=== PATIENT | female | born 1950 | race African-American/Black ===

== ENCOUNTER → 2023-04-11 11:24 | Outpatient (REF) | payer OTHER, SELFPAY | LOC: RAD 11:24 | PROVIDERS: ATTENDING PHYSICIAN Nurse Practitioner | DX: S50.01XA Contusion of right elbow, initial encounter (principal) | CPT/HCPCS: 73080 ==

== ENCOUNTER 2023-08-02 14:14 | Outpatient (RCR) | payer OTHER, SELFPAY | END 2023-08-02 23:59 | disposition home or self-care (01) | LOC: RPT 14:14 | PROVIDERS: ATTENDING PHYSICIAN Internal Medicine; FAMILY PHYSICIAN Internal Medicine | DX: K59.02 Outlet dysfunction constipation (principal); M62.89 Other specified disorders of muscle; R15.1 Fecal smearing; Z73.6 Limitation of activities due to disability | CPT/HCPCS: 97110; 97140; 97163; 97530 ==

== ENCOUNTER 2023-09-06 14:02 | Outpatient (RCR) | payer OTHER, SELFPAY | END 2023-09-06 23:59 | disposition home or self-care (01) | LOC: RPT 14:02 | PROVIDERS: ATTENDING PHYSICIAN Internal Medicine; FAMILY PHYSICIAN Internal Medicine | DX: K59.02 Outlet dysfunction constipation (principal); M62.89 Other specified disorders of muscle; R15.1 Fecal smearing; Z73.6 Limitation of activities due to disability | CPT/HCPCS: 97014; 97110; 97112; 97140; 97530 ==

== ENCOUNTER 2023-09-26 03:47 | Inpatient (IN) | payer OTHER, SELFPAY ==
[2023-09-25 23:04] VITALS: BP 137/59
[2023-09-25 23:06] VITALS: BP 137/59
[2023-09-25] MEDS: ATIVAN 0.5 MG IV ×2 (23:12→23:26)
--- NOTE | 2023-09-25 23:29 | ED.GENMED ---
History of Present Illness
General
Chief Complaint: Seizure
Source: patient, spouse and ambulance crew
Exam Limitations: clinical condition
Time Seen by Provider: 09/25/23 23:17
Nursing documentation reviewed up to this point in time: agreed with
History of Present Illness
History of Present Illness:
73-year-old female with a past medical history of MS, partial complex seizures, rheumatoid arthritis who presents to the emergency department via EMS accompanied by her for evaluation after having episode of her typical seizures. She
follows with Dr. Urban Flores for neurology, she takes Keppra 1000 mg twice daily and has reportedly been compliant. This evening offers that they were sitting in bed watching TV when patient began having one of her typical seizure-like
episodes; she typically will have diminished level of responsiveness (but does not go unresponsive) associated with rigidity of her extremities and incontinence of urine followed by subsequent period of lethargy. She had 5 such episodes lasting
about a minute each prior to hospital arrival. On my assessment patient is very lethargic, she is able to tell me 'my head hurts.' Rest of history is somewhat limited. She did have another one of her episodes during my evaluation�she appeared to
still be able to open her eyes during the episode but was slurring speech and had rigidity of her extremities particularly her arms. says that she did not have any head trauma. Last episode was reportedly about a year and a half ago. Has
been maintained on a steady dose of 1000 mg twice daily Keppra. does note that she took her morning dose of Keppra and when she felt this coming on he gave her one half of a 750 mg tablet of Keppra (375 mg) as he was instructed to do by
neurologist if she feels an episode coming on.
Past History
Past History
ED Past Medical History: Hypercholesterolemia, Seizures, Psychiatric (Depression), Other (Multiple sclerosis, chronic right neck pain/trigeminal neuralgia, migraine headaches, chronic burping, RA, osteopenia, duodenitis, mesenteric vasculitis),
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
ED Past Surgical History: Gynecological (D&C, endometrial ablation 1997), Orthopedic (Laminectomy 1990, 1993; left knee arthroscopy) and Other (Partial thyroidectomy for removal of thyroid nodule)
Patient has exhibited threatening behavior?: No
PSI?: No
Social History
Tobacco: Non-smoker
Alcohol: None
Drug: None
Personal:
Living: with family
Employment: Disabled
Family History
Family History: Other (reviewed and Noncontributory)
Review of Systems
Review of Systems
Unable to obtain full review of systems at this time due to: other (Postictal)
All Other Systems: Not applicable
Phy Exam
Physical Exam
Physical Exam:
General: Lethargic laying in bed but opens eyes to voice, follows basic commands
Head: Normocephalic, atraumatic
Eyes: Conjunctiva normal, pupils equal round and reactive to light bilaterally, tracking across visual field
Throat: Airway intact, handling secretions, tongue appears atraumatic
Neck: Trachea midline, supple without meningismus
Lungs: Clear to auscultation bilaterally, no wheezing, rales, rhonchi
Heart: Regular rate and rhythm, no murmurs, gallops, or rubs
Abd: Soft, non distended, no apparent tenderness
Neuro: Lethargic, moving all extremities spontaneously and symmetrically, no gross cranial nerve deficits
Skin: no rash
Extremities: Warm and well-perfused with good pulses in all extremities
Scores
Heart Failure Risk
Heart Failure Risk Score: Not Applicable
Heart Score for Chest Pain Patients
STEMI patient?: Not applicable
Withdrawal Assessment of Alcohol
Withdrawal Assessment Completed?: Not applicable
Course
Orders/Labs/Results
Orders:
Orders
09/25/23 23:12
Lorazepam [Ativan] 2 mg .ROUTE .STK-MED ONE
09/25/23 23:18
Lorazepam [Ativan] 0.5 mg IV NOW STA
09/25/23 23:25
Levetiracetam Injectable [Keppra] 1,000 mg IV NOW STA
Lorazepam [Ativan] 0.5 mg IV NOW STA
09/25/23 23:26
Lorazepam [Ativan] 0.5 mg IV NOW STA
09/25/23 23:28
Electrocardiogram (*1) Urgent
Reason for Study: Vertigo / Dizzy
EKG- Treatment ONCE
09/25/23 23:36
CPK [Creatine Phosphokinase] Urgent
Complete Blood Count/With Diff Urgent
Comprehensive Metabolic Panel Urgent
Keppra (Levetiracetam) [S] Urgent
Troponin I Urgent
09/26/23 00:35
CT Head W/o Iv Contrast Urgent
Reason For Exam: seizures, headache
Abnormal Lab Results
09/25/23
23:36
WBC 12.1 H 10^3/uL
(4.8-10.8)
Hct 36.4 L %
(37.0-47.0)
MCV 75.5 L fL
(81.0-99.0)
MCH 25.9 L pg
(27.0-31.0)
Absolute Lymphs (auto) 7.3 H 10^3/uL
(1.2-3.4)
Absolute Monos (auto) 1.1 H 10^3/uL
(0.1-0.6)
Neutrophils % 28.0 L %
(42.2-75.2)
Lymphocytes % 60.2 H %
(20.5-51.1)
Sodium 133 L mmol/L
(135-145)
Carbon Dioxide 18 L mmol/L
(22-30)
Glucose 176 H mg/dl
(70-99)
Calcium 10.6 H mg/dl
(8.4-10.2)
Alkaline Phosphatase 194 H U/L
(38-126)
09/25/23 23:36
09/25/23 23:36
Vital Signs
Initial and Last Documented VS:
Initial Vital Signs
Pulse Resp
84 22
09/25/23 23:03 09/25/23 23:03
Last Documented Vital Signs
Temp Pulse Resp BP Pulse Ox
36.4 C 56 14 116/100 96
09/25/23 23:04 09/26/23 01:30 09/26/23 01:30 09/26/23 01:00 09/26/23 01:30
MDM/Problems Addressed
Differential Diagnosis Includes:
Seizure, TIA/CVA, brain hemorrhage, syncope, PNES
MDM/Problems Addressed:
73-year-old female presents for evaluation after a few episodes of her typical seizures at home; had another episode witnessed here. Appears postictal on my assessment. Vital signs significant for mild tachypnea otherwise unremarkable. Physical
exam as above. She was given IV Ativan for seizure. Will provide additional 1 g of IV Keppra. Will send labs including a CBC and a CMP, CPK. Check EKG. Will check CT head. Monitor closely and reassess after the above.
Patient had another seizure-like episode here; will provide additional dose of Ativan.
Labs reviewed: CBC shows slight leukocytosis 12.1. CMP shows random glucose 176, mild metabolic acidosis nongap likely from seizure activity. CT head negative for any acute pathology. Clinical reassessment patient now much more awake, has not had
additional seizure activity since repeat dose of Ativan and extra Keppra. She still feels lethargic, still complains of headache and blurry vision. This is not atypical and her postictal state she says. She had multiple episodes prehospital and
then 2 episodes here and still having postictal symptoms. I think warrants admission for observation for recurrent seizure activity and neurology consultation. Case discussed with hospitalist for admission.
Chronic conditions affecting care:
Seizures, MS
*Radiology
Radiology exam reviewed: radiology read reviewed
*Pulse Oximetry
Patient hypoxic: no
*Critical Care Note
Total Time (30-74mins, 75-104mins- exclusive of procedures): Not Applicable
Data Reviewed
Review of Other/Old Records Reveals: Labs, Records and Discharge Summary
Source: patient, spouse and ambulance crew
Patient Management
Discussion with other providers: Hospitalist (Discussed with hospitalist)
Escalation/DeEscalation of care consider admission/obs:
Admission indicated
ED Attending Note
-
Portions of this chart may have been created with voice recognition software.� Occasional wrong word or��sound alike� substitutions may have occurred due to the inherent limitations of voice recognition software.
Discharge Plan
Departure
Patient Disposition: Admit
Date of Disposition: 09/26/23
Time of Disposition: 02:34
Admit to doctor: Marsha
Presentation/result/management discussed w/ accepting MD/DO: Hospitalist
Discharge Problem:
Seizures
Prescriptions:
No Action
multivitamin with folic acid [Tab-A-Pablo] 1 TABLET tablet
1 tab PO DAILY
amlodipine 10 MG tablet
10 mg PO DAILY
methimazole 5 MG tablet
5 mg PO SUTUTHSA
gabapentin 600 MG tablet
1,200 mg PO BID
ibuprofen [IBU] 800 MG tablet
800 mg PO TIDPRN PRN (Reason: mild pain)
temazepam 30 MG capsule
30 mg PO HS
metoprolol succinate [Toprol XL] 25 mg Tablet Extended Release 24 Hr
25 mg PO DAILY
cholecalciferol (vitamin D3) 125 mcg (5,000 unit) Capsule
125 mcg PO DAILY
escitalopram oxalate 20 mg tablet
20 mg PO DAILY
losartan 100 mg tablet
100 mg PO DAILY
vitamin E [Vitamin E-400] 268 mg (400 unit) Capsule
1 cap PO DAILY
levetiracetam 1,000 mg tablet
1,000 mg PO BID
omega 3-zyb-pkz-fish oil [Fish Oil] 1,000 mg (120 mg-180 mg) Capsule
1 cap PO DAILY
ferrous sulfate 142 mg (45 mg iron) Tablet Extended Release
142 mg PO DAILY
Linzess 72 mcg Capsule
72 mcg PO DAILY
Referrals:
UNKNOWN - PT DOES,NOT KNOW [Family Provider] -
Interventions
Interventions:
*Risk Screen - Suicide Last Done: 09/25/23 22:59
*General Assessment Last Done: 09/25/23 22:59
*Neglect/Abuse Screening Last Done: 09/25/23 22:59
ED- Fall Risk Assessment Last Done: 09/25/23 22:59
*ED COVID-19 Vaccine History Last Done: 09/25/23 22:59
ED- Cardiac Assessment Last Done: 09/25/23 23:07
ED- Neurological Assessment Last Done: 09/26/23 01:09
ED- Pulmonary Assessment Last Done: 09/25/23 23:07
Discharge Date and Time
Print Language: TANZANIAN
[2023-09-25] MEDS: KEPPRA 1000 MG IV (23:33)
[2023-09-26] VITALS (18 sets, daily range): BP systolic 91–148; BP diastolic 42–100; PULSE 54; O2SAT 99; BMI 23.3; BMI 22.8
[2023-09-26 00:01] LABS: Hematocrit 36.4 % (37.0-47.0); Hemoglobin 12.5 g/dL (12.0-16.0); Mean Corp Hgb Conc. 34.3 g/dL (33.0-37.0); Mean Corpuscular Hgb 25.9 pg (27.0-31.0); Mean Corpuscular Volume 75.5 fL (81.0-99.0); Mean Platelet Volume 10.4 fL (7.4-10.4); Platelet Count 274 10^3/uL (130-400); Red Blood Cell Count 4.82 10^6/uL (4.20-5.40); Red Cell Dist. Width 13.7 % (11.5-14.5); White Blood Cell Count 12.1 10^3/uL (4.8-10.8)
[2023-09-26 00:03] LABS: ALT (SGPT) 26 U/L (0-35); AST (SGOT) 34 U/L (14-36); Albumin 4.7 g/dl (3.5-5.0); Alkaline Phosphatase 194 U/L (38-126); Blood Urea Nitrogen 16 mg/dl (7-17); Calcium 10.6 mg/dl (8.4-10.2); Carbon Dioxide 18 mmol/L (22-30); Chloride 102 mmol/L (98-107); Creatine Phosphokinase 104 U/L (30-135); Glucose 176 mg/dl (70-99); Potassium 3.6 mmol/L (3.5-5.1); Sodium 133 mmol/L (135-145); Total Bilirubin 0.3 mg/dl (0.2-1.3); Total Protein 6.5 g/dl (6.3-8.2); eGFR > 60.00
[2023-09-26 00:15] LABS: Troponin I < 0.012 ng/ml
[2023-09-26 00:55] LABS: % Basophils 0.5 % (0-2); % Eosinophils 2.1 % (0-6); % Immature Granulocytes 0.2 % (0-0.5); % Lymphocytes 60.2 % (20.5-51.1); Absolute Basophils 0.1 10^3/uL (0-0.2); Absolute Eosinophils 0.3 10^3/uL (0-0.7); Absolute Lymphocytes 7.3 10^3/uL (1.2-3.4); Absolute Monocytes 1.1 10^3/uL (0.1-0.6); Absolute Neutrophils 3.4 10^3/uL (1.4-6.5); Nucleated Red Blood Cells % 0 %
--- NOTE | 2023-09-26 03:28 | HPS.HSE ---
Addendum entered and electronically signed by Luiz Larson MD 09/26/23 13:03:
09/26/23
07:31
Urine Nitrite (Reflex) Positive A
Urine RBC 7-10 A
Urine WBC (Reflex) 30-40 A
Urine Bacteria (Reflex) Moderate A
UA suggested UTI with POS Sx
- noted primary hospitalist initiated IV CFTX this morning - [employer] Helper appreciated
- f/u UCx
Agree admission Dx break thru partial Sz is provoked by UTI
Original Note:
Family Physician
-
Family Physician: NOT KNOW UNKNOWN - PT DOES
Chief Complaint
-
recurrent Szs
History of Present Illness
73F HX MS, partial complex seizures [facility] for episode of her typical seizures.
- First episode of typical Sz while watching TV this evening followed posticta;l lethargy
- Report 5 more sz SAND [employer] to ER
- Compliance with Keppra 1000 mg BID
@ ER
received IV Keppra 1 gm
IV Lorazepam 0.5 mg x3
ROS:
difficult urination but denied dysuria
Small amount of urine passage per RESIDENT IN DIAGNOSTIC RADIOLOGY
Medical History
Past Medical History
Past Medical History: Reports HTN, Hypercholesterolemia, Psychiatric (depression ) and Other
Additional Past Medical History:
Multiple sclerosis
chronic right neck pain/trigeminal neuralgia
migraine headaches
chronic burping
RA
Past Surgical History: Reports Other
Additional Past Surgical History:
Laminectomy 1990, 1993
left knee arthroscopy
Partial thyroidectomy for removal of thyroid nodule
Social History
Tobacco: Non-smoker
Alcohol: None
Drug: None
Family History
Family History: Not pertinent
Allergies / Home Medications
Allergies reflects when Allergies were last updated in [facility].
Home Medications with original date entered in [facility]
Allergy/Medication List:
Allergies
Allergy/AdvReac Type Severity Reaction Status Date / Time
adhesive tape [Adhesive Tape] Allergy Rash, Verified 09/25/23 23:28
Burning
morphine Allergy NAUSEA/VOMI Verified 09/25/23 23:28
TING
tramadol Allergy SEE BELOW Verified 09/25/23 23:28
povidone-iodine AdvReac Mild Itching, Verified 09/25/23 23:28
[From Betadine] rash
soap [From Betadine] AdvReac Mild Itching, Verified 09/25/23 23:28
rash
silver Allergy Itching Uncoded 09/25/23 23:28
Home Medications
multivitamin with folic acid 400 mcg tablet (Tab-A-Pablo) 1 tab PO DAILY Supplement 01/11/16
amlodipine 10 mg tablet 10 mg PO DAILY Blood pressure 05/18/18
gabapentin 600 mg tablet 1,200 mg PO BID Seizures 05/18/18
ibuprofen 800 mg tablet (IBU) 800 mg PO TIDPRN PRN mild pain 05/18/18
methimazole 5 mg tablet 5 mg PO SUTUTHSA Thyroid 05/18/18
temazepam 30 mg capsule 30 mg PO HS Sleep 05/18/18
metoprolol succinate 25 mg tablet,extended release 24 hr (Toprol XL) 25 mg PO DAILY 02/10/22
cholecalciferol (vitamin D3) 125 mcg (5,000 unit) capsule 125 mcg PO DAILY 03/31/22
escitalopram oxalate 20 mg tablet 20 mg PO DAILY 03/31/22
ferrous sulfate 142 mg (45 mg iron) tablet,extended release 142 mg PO DAILY 03/31/22
levetiracetam 1,000 mg tablet 1,000 mg PO BID 03/31/22
losartan 100 mg tablet 100 mg PO DAILY 03/31/22
omega 7-eim-hjh-fish oil 1,000 mg (120 mg-180 mg) capsule (Fish Oil) 1 cap PO DAILY 03/31/22
vitamin E 268 mg (400 unit) capsule 1 cap PO DAILY 03/31/22
linaclotide 72 mcg capsule (Linzess) 72 mcg PO DAILY 09/25/23
Review of Systems
-
Constitutional: Reports No Symptoms
EENT: Reports No Symptoms
Respiratory: Reports No Symptoms
Cardiac: Reports No Symptoms
Abdomen/GI: Reports No Symptoms
: Reports No Symptoms
Musculoskeletal: Reports No Symptoms
Skin: Reports No Symptoms
Neurological: Reports See HPI
Endocrine: Reports No Symptoms
Hematologic/Lymphatic: Reports No Symptoms
Psych: Reports No Symptoms
Physical Exam
Vital Signs
Vital Signs
Temp Pulse Resp BP Pulse Ox
97.5 F 52 20 104/53 98
09/25/23 23:04 09/26/23 03:24 09/26/23 03:24 09/26/23 03:00 09/26/23 03:24
Physical Exam
General: Conversant
HEENT: NormoCephalic and Moist mucous membranes
Respiratory: Clear
Cardiac: S1/S2 and Regular Rhythm
Breast: Deferred by me
GI: Non Tender, Non Distended and Normal Bowel Sounds
Musculoskeletal: No Edema
Skin: Warm and Dry
Neuro: AO x 3 and Nonfocal/grossly intact
Psych: Calm
Laboratory Results
-
09/25/23 23:36
09/25/23 23:36
Laboratory Results
Total Bilirubin 0.3 mg/dl (0.2-1.3) 09/25/23 23:36
AST 34 U/L (14-36) 09/25/23 23:36
ALT 26 U/L (0-35) 09/25/23 23:36
Alkaline Phosphatase 194 U/L (38-126) H 09/25/23 23:36
Troponin I < 0.012 ng/ml 09/25/23 23:36
Data Reviewed
-
CT Scan: Report Reviewed by me
Lab Data: Labs Reviewed by me
Old Records: Reviewed
Impression/Plan
-
Vital Signs
Temp Pulse Resp BP Pulse Ox
97.5 F 52 20 104/53 98
09/25/23 23:04 09/26/23 03:24 09/26/23 03:24 09/26/23 03:00 09/26/23 03:24
Data
WCC 12.1
Na 133
CO2 18
BG 176
Pending UA
HCT pending report
ASSESSMENT & PLAN
Frequent and recurrent witnessed Sz with post ictlal lethargy
Of note: HX 15 MRIs of the brain since 2008, 9 CAT scans of the head since 2007
- cont. IV Keppra 1 gm BID
- IV Ativan PRN for break thru Sz
- EEG greater than one hour study
- UA
- Neuro consult
Difficult urination but denied dysuria
Small amount of urine passage per RESIDENT IN DIAGNOSTIC RADIOLOGY
- Bladder scan
- pending UA reflex to UCx
Long-standing multiple sclerosis
HX balance disturbance
HX Trigeminal neuralgia
- c/w gabapentin and Trileptal
Essential HTN maintain on Norvasc, BB and Losartan - cont
Marginal chronic Hyponatremia, euvolemic
- c/w Medical Cannabis
HX Hyperthyroidism
- c/w chronic Methimazole
Rheumatoid arthritis
- HX rituximab and chronic MTX - any current Rx ???
DVT Px: SCD
Code: Full
IP TLM
[2023-09-26 07:51] LABS: Urine Albumin Negative (Neg - Trace); Urine Bilirubin Negative (Negative); Urine Character Slightly Cloudy (Clear); Urine Color Yellow; Urine Glucose Negative (Negative); Urine Ketone Negative (Negative); Urine Leukocyte 2+ (Negative); Urine Nitrite Positive (Negative); Urine Occult Blood Trace (Negative); Urine Specific Gravity 1.015 (<1.030); Urine Urobilinogen Negative (Neg - 1+)
--- NOTE | 2023-09-26 08:54 | W.PN.HOSP.TC ---
Today's Communication/Plan
-
IV Keppra. IV Rocephin.
Assessment / Plan
Assessment / Plan
Physical exam:
General: Well Developed, Well Nourished and No Apparent Distress
HEENT: Normocephalic, Atraumatic and Moist Mucous Membranes
Respiratory: Clear to Auscultation; Negative Wheezes, Rales or Rhonchi
Cardiac: Regular Rhythm and S1/S2
GI: Soft, Nontender and Nondistended
Musculoskeletal: No Clubbing, No Cyanosis and No Edema
Neuro: Awake, Alert and Oriented, no gross neurological deficit but right foot drop and generalized weakness. Strength normal, no sensory deficits, DTR 2+ symmetrical, no Babinski.
Psych: Calm
A/P:
Recurrent seizures-on IV Keppra increasing to 1500 mg every 12 hours, CT head no abnormalities, neurology consult-discussed with neuro. Myasthenia gravis outpatient workup. Discussed with boyfriend at bedside.
UTI-abnormal UA, start IV ceftriaxone, follow-up cultures
Trigeminal neuralgia-continue gabapentin and Trileptal
Hypertension-continue amlodipine 10 mg daily and metoprolol succinate 25 mg daily and losartan 100 mg daily
Hyponatremia-monitor sodium
Hyperthyroidism-continue methimazole
Depression-continue escitalopram 20 mg daily
Multiple sclerosis-she has been on rituximab, follow-up neurology as outpatient
Rheumatoid arthritis-she has been on methotrexate and rituximab and tofacitinib, follow-up rheumatology outpatient
IBS, constipation-restart Linzess
Hyperlipidemia-restart statin
DVT prophylaxis-SCDs
CODE STATUS-full code
Anticipated Discharge: 24 - 48 hours
Subjective/Interval History
-
Date of Service: September 26, 2023
Patient alert and back to her baseline this morning. She complains of dysuria and urgency for the last couple of days. Afebrile
Objective Data
-
Labs:
Laboratory Results
09/25/23
23:36
WBC 12.1 H
Hgb 12.5
Hct 36.4 L
Plt Count 274
Sodium 133 L
Potassium 3.6
Chloride 102
Carbon Dioxide 18 L
BUN 16
Creatinine 0.7
Glucose 176 H
Calcium 10.6 H
Total Bilirubin 0.3
AST 34
ALT 26
Alkaline Phosphatase 194 H
Vital Signs:
Vital Signs
Temp Pulse Resp BP Pulse Ox
97.5 F 47 17 115/53 97
09/25/23 23:04 09/26/23 06:45 09/26/23 06:45 09/26/23 05:00 09/26/23 06:45
[2023-09-26 08:55] LABS: Urine Bacteria Moderate (Negative); Urine White Cell 30-40 /HPF (0-5)
--- NOTE | 2023-09-26 09:07 | CON.NEURO4 ---
Documented by User: Marcela Myers NP 09/27/23 10:59
Consultation - Neurology 4
-
CONSULTING PHYSICIAN: Pipe Wetzel MD
REFERRING PHYSICIAN: ER/Dr. Flores
DICTATED BY: ARAMIS Rojo
DATE/TIME OF REQUEST: 09/26/23
DATE/TIME OF CONSULTATION: 09/26/23
Reason for Consultation: Seizure
History of Present Illness:
This is a 73-year-old right-handed female who has presented to the hospital with report of seizures. Patient has a history of partial seizures, and trigeminal neuralgia and is followed as an outpatient by neurology Dr. Urban Flores at [place]. She
has also been evaluated at by neurology several times in the past.
From previous evaluation by Dr. Krishna on 03/02/20:
'Patient was evaluated by this inpatient Hospital neurology consult service in January 2017 at which time she was experiencing episodic changes in mental status. Associated symptoms at that time included tinnitus, a sense of being pulled from her
own body, and aphasia. Episodes lasted less than 1 minute at that time. The episodes were similar to when she had utilized tramadol. EEG testing at that time was unremarkable. Patient was placed on Levetiracetam at that time. In 2018, the patient
was evaluated in inpatient neurologic consultation and instructed to discontinue oxcarbazepine and to increase her dose of gabapentin due to discovery of hyponatremia.
Patient returned to this hospital with recurrent episodes of changes in mental status. Started 2 days ago with worsening because more frequent since 1700 1 day ago, unable to breathe. Is having bladder incontinence, no tongue biting, or bowel
incontinence. Continued and on-going symptoms of mental status change. No known modifying factors.
Patient has a long-standing history of multiple sclerosis diagnosed approximately in 2006 and followed routinely by an outside neurologist (Dr. Urban Flores). Patient is described as having chronic trigeminal neuralgia on the right and left sides for
which she is utilized both oxcarbazepine and gabapentin, as described. According to records, the patient has used valproic acid previously. Patient is described in records as being noncompliant with glatiramer acetate as well as Teriflunomide. The
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 Changed to Methotrexate since discontinuance of rituximab.
According to records, the patient switched from sertraline to escitalopram as of November 2019. Started Tofacitinib 6 weeks ago for rheumatoid arthritis.'
Patient reports that since 2019 she has been off of DMT for MS. She reports chronic right foot drop starting a few years ago and she ambulates with a cane at baseline. She also notes 1-2 years of issues with slurred speech primarily in the evening,
BUE weakness with activities like brushing/flossing her teeth, and swallowing difficulty/feeling like food gets stuck in her throat. She notes intermittent diplopia starting around 2009, mostly with lateral gaze. She denies noticing any eyelid
drooping. She reports being tested for myasthenia antibodies about 10 years ago and they were negative.
Patient reports that her last seizure was in February 2022. She has been taking Keppra 1000mg for years now and denies missing any doses. Last night (09/25/23), patient reports she was in her usual state when suddenly while lying in bed watching TV
she developed a diffuse 'heavy body' sensation that she gets before her typical seizures. She then reports that her body became rigid, she could hear/understand speech but was unable to verbally respond, and she was incontinent of urine. She denies
losing consciousness or biting her tongue. She proceeded to have 5 episodes like this lasting about 1 minute each, followed by feeling lethargic. She reports developing a right-sided headache following these events. On arrival in the ER she was
witnessed to have another event and received an additional Keppra 1000mg IV and lorazepam. CT head was obtained and is negative for any acute abnormalities. WBC is 12.1, patient is afebrile. Currently, patient reports feeling tired with some
increased BLE weakness compared to baseline. She reports her chronic intermittent diplopia, difficulty swallowing, and right foot drop. She denies any vision loss, dizziness, speech difficulty, numbness, chest pain, palpitations, and shortness of
breath. She denies any recent fever or illness but she does note dysuria. Urinalysis is suggestive of possible UTI.
Past Medical History: Partial seizure disorder, multiple sclerosis, rheumatoid arthritis, chronic right neck pain/trigeminal neuralgia, HLD, migraines, chronic burping, depression, anxiety, insomnia, osteopenia, duodenitis, mesenteric vasculitis,
thyroid nodule, right foot drop, diplopia, chronic constipation, hiatal hernia, spastic pelvic floor syndrome
Surgical History: Partial thyroidectomy, L4/L5 discectomy/laminectomy, D&C, endometrial ablation, L knee arthroscopy, right hand finger surgery, sinus surgery, fibroma removed from lower lip, left bunionectomy
Family History: Reviewed and noncontributory.
Social History: Denies tobacco, alcohol, and illicit drug use.
Allergies: Adhesive tape, morphine, tramadol, povidone-iodine, soap, silver.
Home Medications: See below.
Review of Symptoms:
Patient denies any fever, headache, chest pain, shortness of breath, or GI symptoms.
�Per the HPI.�All systems are reviewed negative except above.
Physical Exam:
The patient is afebrile, abdomen is nondistended, breathing is unlabored, skin is warm and dry, no edema.
Neurologic Examination:
The patient is awake, alert and oriented x 3. She is able to follow commands and answer questions appropriately. There is no aphasia or dysarthria. On cranial nerve assessment, pupils are 3 mm bilateral, round and reactive to light and
accommodation. Visual haskins are full. Extraocular movements are intact. +Diplopia with left and right gaze. Facial sensations are intact and bilaterally symmetrical, there is no facial asymmetry. Hearing is intact bilaterally to normal conversation
volume. Tongue palate and uvula are midline. Sternocleidomastoid strengths are full bilaterally. Motor strengths are 5/5 bilateral upper and 4/5 LLE, 4-/5 RLE on medical research [place] scale. There is no drift or involuntary movement noted. Deep
tendon reflexes are 2+ bilateral upper and lower extremities and Babinski is absent bilaterally. Sensations temperature is mildly reduced in distal bilateral lower extremities. There was no extinction noted on double simultaneous stimulation.
Coordination is intact by finger to nose bilaterally.
Lab Results: See below.
Neuro Imaging:
1. CT Head 09/26/23: There are no focal or acute intracranial abnormalities. There is mild diffuse cortical and cerebellar atrophy.
2. EEG 09/26/23: Likely unremarkable EEG for age.
Differentials for the patient's presentation include:
1. Breakthrough partial seizures; urinalysis suggestive of UTI, possibly a provoking factor.
2. Chronic dysphagia, diplopia, BUE weakness on exertion.
3. Chronic R footdrop, ambulatory dysfunction.
Patient has the following risk factors for their symptoms: Seizure disorder, possibly UTI, MS
Recommendations:
-Increase home Keppra 1000mg to 1500mg q12hrs for seizure prevention.
-With strict workup/treatment per primary team.
-Do not see a role for further neurological imaging.
-PT evaluation.
-Seizure precautions.
-Consider checking myasthenia gravis antibodies again as an outpatient.
-DVT prophylaxis.
-These events are required by [place] state law to be reported to [facility], paperwork submitted by our office.
-Follow-up with Neurology Dr. Flores as an outpatient.
Discussed patient care with: Dr. Wetzel, the patient
Attending note:
Patient seen and examined. Agree with history physical exam assessment and plan.
Briefly 73-year-old lady with history of chronic epilepsy well-controlled on Keppra 1000mg twice a day. She had a bladder infection which triggered dais cluster of seizures. She was admitted and placed on Keppra 1500 mg twice a day. Following
admission the patient is doing well and has had no seizures
Vital Signs and Labs
-
Vital Signs and Labs:
Vital Signs
Temp Pulse Resp BP Pulse Ox
98.2 F 60 16 148/66 98
09/26/23 09:29 09/26/23 09:29 09/26/23 09:29 09/26/23 09:29 09/26/23 09:29
Lab Results
09/25/23 23:36
09/25/23 23:36
Sodium 133 mmol/L (135-145) L 09/25/23 23:36
Potassium 3.6 mmol/L (3.5-5.1) 09/25/23 23:36
BUN 16 mg/dl (7-17) 09/25/23 23:36
Glucose 176 mg/dl (70-99) H 09/25/23 23:36
Calcium 10.6 mg/dl (8.4-10.2) H 09/25/23 23:36
Medications
-
Active Medications
Generic Name Dose Route Start Last Admin
Trade Name Freq PRN Reason Stop Dose Admin
Amlodipine Besylate 10 mg 09/26/23 08:00 09/26/23 09:31
Amlodipine 10 Mg Tablet PO 10/24/23 07:59 10 mg
DAILY ELOISE Administration
Bisacodyl 10 mg 09/26/23 04:07
Bisacodyl 10 Mg Rectal Suppository RECTAL 10/24/23 04:06
[id number] PRN
constipation
Ceftriaxone Sodium 1,000 mg 09/26/23 12:00
Ceftriaxone 1000 Mg / 10 Ml Vial IV
Q24H ELOISE
Escitalopram Oxalate 20 mg 09/26/23 08:00 09/26/23 09:31
Escitalopram 20 Mg Tablet PO 10/24/23 07:59 20 mg
DAILY ELOISE Administration
Gabapentin 1,200 mg 09/26/23 08:00 09/26/23 09:31
Gabapentin 300 Mg Capsule PO 10/24/23 07:59 1,200 mg
BID ELOISE Administration
Levetiracetam 1,000 mg 09/26/23 08:00 09/26/23 09:21
Levetiracetam (100 Mg/Ml) 500 Mg/5 Ml Vial IV 10/24/23 07:59 1,000 mg
Q12 ELOISE Administration
Losartan Potassium 100 mg 09/26/23 08:00 09/26/23 09:31
Losartan 100 Mg Tablet PO 10/24/23 07:59 100 mg
DAILY ELOISE Administration
Methimazole 5 mg 09/26/23 08:00
Methimazole 5 Mg Tablet PO 10/24/23 07:59
SuTuThSa@0800 ELOISE
Metoprolol Succinate 25 mg 09/26/23 08:00 09/26/23 09:31
Metoprolol 25 Mg Extended Release Tablet PO 10/24/23 07:59 25 mg
DAILY ELOISE Administration
Polyethylene Glycol 17 grams 09/26/23 04:07
Polyethylene Glycol Powder 17 Grams Packet PO 10/24/23 04:06
DAILYPRN PRN
constipation
Senna/Docusate Sodium 1 tablet 09/26/23 04:07
Docusate W/Senna (Thao-Colace) Tablet PO 10/24/23 04:06
BIDPRN PRN
constipation
Sodium Chloride 0 flush 09/26/23 05:00
Sodium Chloride 0.9% (Flush) Syringe IV 10/24/23 04:59
PER PROTOCOL ELOISE
Home Medications
�Medication �Instructions �Recorded
multivitamin with folic acid 400 1 tab PO DAILY Supplement 01/11/16
mcg tablet (Tab-A-Pablo)
amlodipine 10 mg tablet 10 mg PO DAILY Blood pressure 05/18/18
gabapentin 600 mg tablet 1,200 mg PO BID Seizures 05/18/18
ibuprofen 800 mg tablet (IBU) 800 mg PO TIDPRN PRN mild pain 05/18/18
methimazole 5 mg tablet 5 mg PO SUTUTHSA Thyroid 05/18/18
temazepam 30 mg capsule 30 mg PO HS Sleep 05/18/18
metoprolol succinate 25 mg 25 mg PO DAILY Heart Failure 02/10/22
tablet,extended release 24 hr
(Toprol XL)
cholecalciferol (vitamin D3) 125 125 mcg PO DAILY Supplement 03/31/22
mcg (5,000 unit) capsule
escitalopram oxalate 20 mg tablet 20 mg PO DAILY Depression 03/31/22
ferrous sulfate 142 mg (45 mg 142 mg PO DAILY Supplement 03/31/22
iron) tablet,extended release
levetiracetam 1,000 mg tablet 1,000 mg PO BID Seizures 03/31/22
losartan 100 mg tablet 100 mg PO DAILY Blood Pressure 03/31/22
omega 8-[id number]-apf-fish oil 1,000 mg 1 cap PO DAILY High Cholesterol 03/31/22
(120 mg-180 mg) capsule (Fish Oil)
vitamin E 268 mg (400 unit) capsule 1 cap PO DAILY Supplement 03/31/22
linaclotide 72 mcg capsule 72 mcg PO DAILY Constipation 09/25/23
(Linzess)

Documented by User: Pipe Wetzel MD 09/27/23 10:59
Consultation - Neurology 4
-
CONSULTING PHYSICIAN: Pipe Wetzel MD
REFERRING PHYSICIAN: ER/Dr. Flores
DICTATED BY: ARAMIS Rojo
DATE/TIME OF REQUEST: 09/26/23
DATE/TIME OF CONSULTATION: 09/26/23
Reason for Consultation: Seizure
History of Present Illness:
This is a 73-year-old right-handed female who has presented to the hospital with report of seizures. Patient has a history of partial seizures, and trigeminal neuralgia and is followed as an outpatient by neurology Dr. Urban Flores at [place]. She
has also been evaluated at by neurology several times in the past.
From previous evaluation by Dr. Krishna on 03/02/20:
'Patient was evaluated by this inpatient Hospital neurology consult service in January 2017 at which time she was experiencing episodic changes in mental status. Associated symptoms at that time included tinnitus, a sense of being pulled from her
own body, and aphasia. Episodes lasted less than 1 minute at that time. The episodes were similar to when she had utilized tramadol. EEG testing at that time was unremarkable. Patient was placed on Levetiracetam at that time. In 2019, the patient
was evaluated in inpatient neurologic consultation and instructed to discontinue oxcarbazepine and to increase her dose of gabapentin due to discovery of hyponatremia.
Patient returned to this hospital with recurrent episodes of changes in mental status. Started 2 days ago with worsening because more frequent since 1700 1 day ago, unable to breathe. Is having bladder incontinence, no tongue biting, or bowel
incontinence. Continued and on-going symptoms of mental status change. No known modifying factors.
Patient has a long-standing history of multiple sclerosis diagnosed approximately in 2006 and followed routinely by an outside neurologist (Dr. Urban Flores). Patient is described as having chronic trigeminal neuralgia on the right and left sides for
which she is utilized both oxcarbazepine and gabapentin, as described. According to records, the patient has used valproic acid previously. Patient is described in records as being noncompliant with glatiramer acetate as well as Teriflunomide. The
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 Changed to Methotrexate since discontinuance of rituximab.
According to records, the patient switched from sertraline to escitalopram as of November 2019. Started Tofacitinib 6 weeks ago for rheumatoid arthritis.'
Patient reports that since 2019 she has been off of DMT for MS. She reports chronic right foot drop starting a few years ago and she ambulates with a cane at baseline. She also notes 1-2 years of issues with slurred speech primarily in the evening,
BUE weakness with activities like brushing/flossing her teeth, and swallowing difficulty/feeling like food gets stuck in her throat. She notes intermittent diplopia starting around 2009, mostly with lateral gaze. She denies noticing any eyelid
drooping. She reports being tested for myasthenia antibodies about 10 years ago and they were negative.
Patient reports that her last seizure was in February 2022. She has been taking Keppra 1000mg for years now and denies missing any doses. Last night (09/25/23), patient reports she was in her usual state when suddenly while lying in bed watching TV
she developed a diffuse 'heavy body' sensation that she gets before her typical seizures. She then reports that her body became rigid, she could hear/understand speech but was unable to verbally respond, and she was incontinent of urine. She denies
losing consciousness or biting her tongue. She proceeded to have 5 episodes like this lasting about 1 minute each, followed by feeling lethargic. She reports developing a right-sided headache following these events. On arrival in the ER she was
witnessed to have another event and received an additional Keppra 1000mg IV and lorazepam. CT head was obtained and is negative for any acute abnormalities. WBC is 12.1, patient is afebrile. Currently, patient reports feeling tired with some
increased BLE weakness compared to baseline. She reports her chronic intermittent diplopia, difficulty swallowing, and right foot drop. She denies any vision loss, dizziness, speech difficulty, numbness, chest pain, palpitations, and shortness of
breath. She denies any recent fever or illness but she does note dysuria. Urinalysis is suggestive of possible UTI.
Past Medical History: Partial seizure disorder, multiple sclerosis, rheumatoid arthritis, chronic right neck pain/trigeminal neuralgia, HLD, migraines, chronic burping, depression, anxiety, insomnia, osteopenia, duodenitis, mesenteric vasculitis,
thyroid nodule, right foot drop, diplopia, chronic constipation, hiatal hernia, spastic pelvic floor syndrome
Surgical History: Partial thyroidectomy, L4/L5 discectomy/laminectomy, D&C, endometrial ablation, L knee arthroscopy, right hand finger surgery, sinus surgery, fibroma removed from lower lip, left bunionectomy
Family History: Reviewed and noncontributory.
Social History: Denies tobacco, alcohol, and illicit drug use.
Allergies: Adhesive tape, morphine, tramadol, povidone-iodine, soap, silver.
Home Medications: See below.
Review of Symptoms:
Patient denies any fever, headache, chest pain, shortness of breath, or GI symptoms.
�Per the HPI.�All systems are reviewed negative except above.
Physical Exam:
The patient is afebrile, abdomen is nondistended, breathing is unlabored, skin is warm and dry, no edema.
Neurologic Examination:
The patient is awake, alert and oriented x 3. She is able to follow commands and answer questions appropriately. There is no aphasia or dysarthria. On cranial nerve assessment, pupils are 3 mm bilateral, round and reactive to light and
accommodation. Visual haskins are full. Extraocular movements are intact. +Diplopia with left and right gaze. Facial sensations are intact and bilaterally symmetrical, there is no facial asymmetry. Hearing is intact bilaterally to normal conversation
volume. Tongue palate and uvula are midline. Sternocleidomastoid strengths are full bilaterally. Motor strengths are 5/5 bilateral upper and 4/5 LLE, 4-/5 RLE on medical research [place] scale. There is no drift or involuntary movement noted. Deep
tendon reflexes are 2+ bilateral upper and lower extremities and Babinski is absent bilaterally. Sensations temperature is mildly reduced in distal bilateral lower extremities. There was no extinction noted on double simultaneous stimulation.
Coordination is intact by finger to nose bilaterally.
Lab Results: See below.
Neuro Imaging:
1. CT Head 09/26/23: There are no focal or acute intracranial abnormalities. There is mild diffuse cortical and cerebellar atrophy.
2. EEG 09/26/23: Likely unremarkable EEG for age.
Differentials for the patient's presentation include:
1. Breakthrough partial seizures; urinalysis suggestive of UTI, possibly a provoking factor.
2. Chronic dysphagia, diplopia, BUE weakness on exertion.
3. Chronic R footdrop, ambulatory dysfunction.
Patient has the following risk factors for their symptoms: Seizure disorder, possibly UTI, MS
Recommendations:
-Increase home Keppra 1000mg to 1500mg q12hrs for seizure prevention.
-With strict workup/treatment per primary team.
-Do not see a role for further neurological imaging.
-PT evaluation.
-Seizure precautions.
-Consider checking myasthenia gravis antibodies again as an outpatient.
-DVT prophylaxis.
-Follow-up with Neurology Dr. Flores as an outpatient.
Discussed patient care with: Dr. Wetzel, the patient
Attending note:
Patient seen and examined. Agree with history physical exam assessment and plan.
Briefly 73-year-old lady with history of chronic epilepsy well-controlled on Keppra 1000mg twice a day. She had a bladder infection which triggered dais cluster of seizures. She was admitted and placed on Keppra 1500 mg twice a day. Following
admission the patient is doing well and has had no seizures
[2023-09-26] MEDS: KEPPRA 1000 MG IV (09:21)
[2023-09-26] MEDS: NORVASC 10 MG PO (09:31)
[2023-09-26] MEDS: TOPROL XL 25 MG PO (09:31)
[2023-09-26] MEDS: COZAAR 100 MG PO (09:31)
[2023-09-26] MEDS: LEXAPRO 20 MG PO (09:31)
[2023-09-26] MEDS: NEURONTIN 1200 MG PO ×2 (09:31→19:50)
--- NOTE | 2023-09-26 09:35 | EEG.RPT ---
Electroencephalogram Report
Recording
Date of EE09/26/23
Type of EEG: Routine
Length of EEG recordin minutes
Done with Video Recording: Yes
Patient Status: Emergency Room
Recording Conditions: Awake, Drowsy and Asleep
Hyperventilation Performed: No
Photic Stimulation Performed: Yes
Report
LESS THAN 1 HOUR EEG REPORT
GREATER THAN 1 HOUR EEG INTERPRETATION:
Likely unremarkable EEG for age
CLINICAL CORRELATION:
Although normative values not been established for a person of this advanced age, the patient�s symmetry of the background suggests that this study was unremarkable.
A normal EEG does not rule out a diagnosis of epilepsy.� If clinical suspicion for seizure persists, a prolonged recording may be warranted.
Clinical correlation is advised.
METHODS:
A 21 channel digitized electroencephalogram (EEG) was performed using the 10/20 international system of electrode placement and one-lead of ECG recorded. The [employer] quantitative review system was utilized.
ELECTROENCEPHALOGRAPHER IMPRESSION(S):
Quality of study
Good
Background
There was an low amplitude anterior-posterior voltage gradient of alpha-maximal frequency, typically theta.
With eye opening the background activity changed to a low voltage mixture of frequencies.
There were no significant asymmetries of background activity noted.
Sleep
Drowsiness present
Stage 1 sleep recorded
Stage 2 sleep recorded
Photic Stimulation
No driving
ECG
Normal sinus rhythm
[2023-09-26] MEDS: TAPAZOLE PO ×2 (10:59→11:50)
[2023-09-26] MEDS: ROCEPHIN 1000 MG IV (11:50)
[2023-09-26] MEDS: STERILE WATER FOR INJECTION 10 ML IV (11:50)
--- NOTE | 2023-09-26 12:33 | CM ---
CM reviewed chart.
CM introduced self and role. Spoke with patient and , Noel at bedside.
Dx: recurrent seizures
Patient is on seizure precautions.
Patient is independent with a cane. She owns 4.
She drives. will provide transportation on discharge.
She lives in a [facility]. She has [address] step to enter.
She has children and grandchildren who live in [place]. She has local friends for support.
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
She denied any +SDOH's.
PCP: Dr. Ordonez
Pharmacy: [facility]
DISCHARGE DISPOSITION:
TBD upon PT/OT's assessment and evaluation. Will be discharged when medically stable.
[2023-09-26 13:12] LABS: TSH Reflex To Free T4 1.91 uIU/ml (0.47-4.68)
[2023-09-26 13:16] LABS: Ferritin 68.4 ng/ml (11.1-264.0)
[2023-09-26 13:47] LABS: Folate > 20.0 ng/ml (2.76-20)
[2023-09-26 14:01] LABS: Glycohemoglobin (HgbA1c) 6.1 % (4.0-5.6)
[2023-09-26 14:45] LABS: Vitamin B12 834 pg/ml (239-931)
[2023-09-26] MEDS: LINZESS 145 MCG PO (15:54)
[2023-09-26] MEDS: VITAMIN D3 (cholecalciferol) 125 MCG PO (15:54)
[2023-09-26] MEDS: CRESTOR 5 MG PO (15:54)
[2023-09-26] MEDS: KEPPRA 1500 MG IV (19:50)
[2023-09-26] MEDS: RESTORIL 30 MG PO (20:07)
[2023-09-27] VITALS (8 sets, daily range): BP systolic 107–158; BP diastolic 48–65; PULSE 57; O2SAT 99
--- NOTE | 2023-09-27 03:16 | DOWNTIME ---
There was a [email or web address] Downtime on 09/27/2023 from 0100 to 09/27/2023 at 0252. Downtime documentation of patient's care, including medication administrations, has been reconciled in the electronic record per guidelines. Refer to the
patient's paper chart under the miscellaneous tab to see printed paper medication records and downtime forms.
[2023-09-27 06:24] LABS: Hematocrit 37.7 % (37.0-47.0); Hemoglobin 12.2 g/dL (12.0-16.0); Mean Corp Hgb Conc. 32.4 g/dL (33.0-37.0); Mean Corpuscular Hgb 26.4 pg (27.0-31.0); Mean Corpuscular Volume 81.6 fL (81.0-99.0); Mean Platelet Volume 9.5 fL (7.4-10.4); Platelet Count 225 10^3/uL (130-400); Red Blood Cell Count 4.62 10^6/uL (4.20-5.40); Red Cell Dist. Width 14.2 % (11.5-14.5); White Blood Cell Count 9.1 10^3/uL (4.8-10.8)
[2023-09-27 07:03] LABS: ALT (SGPT) 23 U/L (0-35); AST (SGOT) 28 U/L (14-36); Albumin 3.9 g/dl (3.5-5.0); Alkaline Phosphatase 142 U/L (38-126); Blood Urea Nitrogen 16 mg/dl (7-17); Carbon Dioxide 27 mmol/L (22-30); Chloride 104 mmol/L (98-107); Direct Bilirubin 0.1 mg/dl (0.0-0.4); Estimated Creatinine Clearance 56 ml/min; Glucose 102 mg/dl (70-99); Potassium 5.2 mmol/L (3.5-5.1); Sodium 136 mmol/L (135-145); Total Bilirubin 0.3 mg/dl (0.2-1.3); Total Protein 5.7 g/dl (6.3-8.2); eGFR > 60.00
[2023-09-27 07:20] LABS: % Basophils 0.3 % (0-2); % Eosinophils 3.7 % (0-6); % Immature Granulocytes 0.2 % (0-0.5); % Lymphocytes 48.3 % (20.5-51.1); % Monocytes 8.3 % (1.7-9.3); % Neutrophils 39.2 % (42.2-75.2); Absolute Eosinophils 0.3 10^3/uL (0-0.7); Absolute Lymphocytes 4.4 10^3/uL (1.2-3.4); Absolute Monocytes 0.8 10^3/uL (0.1-0.6); Absolute Neutrophils 3.6 10^3/uL (1.4-6.5); Nucleated Red Blood Cells % 0 %
[2023-09-27] MEDS: KEPPRA IV (08:22)
[2023-09-27] MEDS: CRESTOR 5 MG PO (08:30)
[2023-09-27] MEDS: NORVASC 10 MG PO (08:30)
[2023-09-27] MEDS: KEPPRA 1500 MG PO ×2 (08:30→19:15)
[2023-09-27] MEDS: TOPROL XL 25 MG PO (08:30)
[2023-09-27] MEDS: NEURONTIN 1200 MG PO ×2 (08:30→19:15)
[2023-09-27] MEDS: VITAMIN D3 (cholecalciferol) 125 MCG PO (08:31)
[2023-09-27] MEDS: COZAAR 100 MG PO (08:31)
[2023-09-27] MEDS: LINZESS PO (08:35)
[2023-09-27] MEDS: LEXAPRO 20 MG PO (08:36)
--- NOTE | 2023-09-27 10:56 | W.PN.HOSP.TC ---
Today's Communication/Plan
-
Await urine culture
PT/OT
Assessment / Plan
Assessment / Plan
General: Well Developed, Well Nourished and No Apparent Distress
HEENT: Normocephalic, Atraumatic and Moist Mucous Membranes
Respiratory: Clear to Auscultation; Negative Wheezes, Rales or Rhonchi
Cardiac: Regular Rhythm and S1/S2
GI: Soft, Nontender and Nondistended
Musculoskeletal: No Clubbing, No Cyanosis and No Edema
Neuro: Awake, Alert and Oriented, no gross neurological deficit but right foot drop and generalized weakness. Strength normal, no sensory deficits, DTR 2+ symmetrical, no Babinski.
Psych: Calm
Recurrent seizures -on IV Keppra increasing to 1500 mg every 12 hours, CT head no abnormalities, neurology consult-discussed with neuro. Myasthenia gravis outpatient workup. Neurology to report seizure to the [facility], no driving for 6 months.
Discussed with neurology service and patient.
Presumed UTI -abnormal UA, continue ceftriaxone. Patient denies UTI symptoms. Denies frequent UTIs. Urine culture shows greater than 100,000 E. coli, sensitivity pending.
Trigeminal neuralgia -continue gabapentin and Trileptal
Essential hypertension -continue amlodipine 10 mg daily and metoprolol succinate 25 mg daily and losartan 100 mg daily
Hyponatremia -improved.
Hyperthyroidism -continue methimazole.
Depression -continue escitalopram 20 mg daily
Multiple sclerosis -she has been on rituximab, follow-up neurology as outpatient
Rheumatoid arthritis -she has been on methotrexate and rituximab and tofacitinib, follow-up rheumatology outpatient
IBS, constipation -continue Linzess
Hyperlipidemia -restart statin
Full code
Anticipated Discharge: Within 24 hours
Subjective/Interval History
-
Date of Service: September 27, 2023
Patient seen and examined. Currently no complaints other than feeling weak.
Objective Data
-
Labs:
Laboratory Results
09/27/23
05:54
WBC 9.1
Hgb 12.2
Hct 37.7
Plt Count 225
Sodium 136
Potassium 5.2 H D
Chloride 104
Carbon Dioxide 27
BUN 16
Creatinine 0.8
Glucose 102 H
Calcium 10.0
Total Bilirubin 0.3
AST 28
ALT 23
Alkaline Phosphatase 142 H
Vital Signs:
Vital Signs
Temp Pulse Resp BP Pulse Ox
97.9 F 60 16 144/57 98
09/27/23 07:00 09/27/23 07:00 09/27/23 07:00 09/27/23 07:00 09/27/23 07:00
I&O
09/26/23 09/27/23 09/28/23
06:59 06:59 06:59
Intake Total 1560 / 1560
Balance 1560 / 1560
Review of Systems
-
History Source: Patient
All other systems: Reviewed and negative
--- NOTE | 2023-09-27 11:00 | W.PN.NEURO.1 ---
Today's Communication / Plan
-
Patient may go home on Keppra 1500 mg milligrams twice a day
Please provide a prescription for midazolam nasal spray: 5 mg/unit. Directions: 1 spray into nostril prior to or at onset of seizure. Repeat dose in opposite nostril after 5-10 minutes if patient continues to have seizures
Neuro Assessment/Plan
Assessment
73-year-old lady with history of chronic epilepsy doing well on Keppra 1500 twice a day
Plan
Continue Keppra 1500 mg twice a day
May this midazolam nasal spray on an emergent basis
Subjective/Objective
Subjective Data
Date of Service: September 27, 2023
Patient doing well on Keppra 1500 mg twice a day. She wishes to stay on Keppra 1500 twice a day and wants a prescription for midazolam nasal spray
Objective Data
Vital Signs
Temp Pulse Resp BP Pulse Ox
36.6 C 60 16 144/57 98
09/27/23 07:00 09/27/23 07:00 09/27/23 07:00 09/27/23 07:00 09/27/23 07:00
Lab Results
09/27/23 05:54
09/27/23 05:54
Sodium 136 mmol/L (135-145) 09/27/23 05:54
Potassium 5.2 mmol/L (3.5-5.1) H D 09/27/23 05:54
BUN 16 mg/dl (7-17) 09/27/23 05:54
Glucose 102 mg/dl (70-99) H 09/27/23 05:54
Calcium 10.0 mg/dl (8.4-10.2) 09/27/23 05:54
Vitamin B12 834 pg/ml (239-931) 09/25/23 23:36
Patient Allergies
adhesive tape [Adhesive Tape] Allergy (Verified 09/25/23 23:28)
Rash, Burning
morphine Allergy (Verified 09/25/23 23:28)
NAUSEA/VOMITING
tramadol Allergy (Verified 09/25/23 23:28)
SEE BELOW
povidone-iodine [From Betadine] Adverse Reaction (Mild, Verified 09/25/23 23:28)
Itching, rash
soap [From Betadine] Adverse Reaction (Mild, Verified 09/25/23 23:28)
Itching, rash
silver Allergy (Uncoded 09/25/23 23:28)
Itching
Physical Exam
-
General: Well Developed, Well Nourished, No Apparent Distress and Comfortable
Eyes: Unremarkable, Round OU, [place] Conjunctivae, No Ptosis and PERRLA
HEENT: Normocephalic, Atraumatic and Anicteric
Neck: No Bruits Bilaterally and Full Range of Motion
Respiratory: Clear to Auscultation and No Dyspnea
Cardiac: Regular Rhythm, No Murmur and S1/S2
GI: Normal Bowel Sounds
Skin: Unremarkable
Extremities: No Clubbing
Psych: Unremarkable
Extended Neurological Exam
Mood & Affect: Mood Unremarkable and Affect Unremarkable
Attention Span & Concentration: Awake, Alert, Interactive and No Difficulty with 2 Step Request
Memory: Unremarkable and Able to Recall
Tremor: Hand Tremor Absent and Head Tremor Absent
Involuntary Movement: None
Speech: Quality Unremarkable, Quantity Unremarkable and Rate of Production Unremarkable
Cranial Nerve II: Left Eye: Pupillary Reactivity Unremarkable, Pupillary Size Unremarkable and Visual Díaz Grossly Intact
Cranial Nerve II: Right Eye: Pupillary Reactivity Unremarkable, Pupillary Size Unremarkable and Visual Díaz Grossly Intact
Cranial Nerves III, IV, : Extraocular Movement: Extraocular Movement Full in all Directions
Cranial Nerve V: Facial Sensation: Facial Sensation Unremarkable to Cold and Intact to Light Touch
Cranial Nerve VII: Facial Symmetry: Normal Facial Symmetry
Cranial Nerve VIII: Hearing: Unremarkable Hearing to Normal Conversational Volume
Cranial Nerves IX, X: Palate Movement: Palate Elevation Symmetric
Cranial Nerve XI: Shoulder Shrug: Unremarkable
Cranial Nerve XII: Tongue Protusion: Midline
Muscle Strength, Overall: Full Throughout
Muscle Bulk & Tone: Bulk Unremarkable and Tone Unremarkable
Pronator Drift: No Drift in Upper Extremities and Drift in Left Lower Extremity
Deep Tendon Reflexes: Unremarkable Throughout
Cold Sensation: Unremarkable
Vibration Sensation: Unremarkable
Touch Sensation: Unremarkable
Coordination: Kjnyid-zfhw-vvezae Testing Unremarkable
Babinski Sign: Absent Bilaterally
Gait & Station: Unremarkable Arm Swing
[2023-09-27] MEDS: ROCEPHIN 1000 MG IV (13:01)
[2023-09-27] MEDS: STERILE WATER FOR INJECTION 10 ML IV (13:02)
--- NOTE | 2023-09-27 15:34 | CM ---
Patient seen bedside with spouse, reports she is feeling better today. CM discussed PT recommendation of home health. Patient reports she has had [facility] in the past, would like them again. [facility] with [facility]. CM will continue
to follow for all discharge planning needs.
Plan; home with [facility] when stable.
[2023-09-27] MEDS: TYLENOL 650 MG PO (18:36)
[2023-09-27] MEDS: RESTORIL 30 MG PO (21:11)
[2023-09-28 01:13] LABS: Keppra (Levetiracetam) 46 ug/mL (10-40)
[2023-09-28 03:27] VITALS: BP 112/55
[2023-09-28 07:00] VITALS: BP 125/56
[2023-09-28 07:03] LABS: Blood Urea Nitrogen 14 mg/dl (7-17); Calcium 10.2 mg/dl (8.4-10.2); Carbon Dioxide 27 mmol/L (22-30); Chloride 101 mmol/L (98-107); Estimated Creatinine Clearance 56 ml/min; Glucose 95 mg/dl (70-99); Potassium 4.9 mmol/L (3.5-5.1); Sodium 139 mmol/L (135-145); eGFR > 60.00
[2023-09-28] MEDS: CRESTOR 5 MG PO (07:28)
[2023-09-28] MEDS: NEURONTIN 1200 MG PO (07:28)
[2023-09-28] MEDS: KEPPRA 1500 MG PO (07:29)
[2023-09-28] MEDS: TAPAZOLE 5 MG PO (07:29)
[2023-09-28] MEDS: TOPROL XL 25 MG PO (07:29)
[2023-09-28] MEDS: NORVASC 10 MG PO (07:29)
[2023-09-28] MEDS: LEXAPRO 20 MG PO (07:30)
[2023-09-28] MEDS: VITAMIN D3 (cholecalciferol) 125 MCG PO (07:30)
[2023-09-28] MEDS: LINZESS 145 MCG PO (07:44)
--- NOTE | 2023-09-28 10:42 | VNURNOTE ---
Home Health Liaison met with patient at bedside to discuss [facility] nurse/therapy, visits, schedule and homebound status. Patient is agreeable and understands that visits at home will be 1-2 x per week to assess and teach medical management. She has had
[facility] in the past. [facility] brochure provided with contact information. Patient is aware that [facility] will contact them for start of care within a few days after discharge from .
[facility] referral completed in [facility].
[2023-09-28 11:00] VITALS: BP 116/64
--- NOTE | 2023-09-28 11:31 | W.PN.HOSP.TC ---
Today's Communication/Plan
-
Discharge
Assessment / Plan
Assessment / Plan
General: Well Developed, Well Nourished and No Apparent Distress
HEENT: Normocephalic, Atraumatic and Moist Mucous Membranes
Respiratory: Clear to Auscultation; Negative Wheezes, Rales or Rhonchi
Cardiac: Regular Rhythm and S1/S2
GI: Soft, Nontender and Nondistended
Musculoskeletal: No Clubbing, No Cyanosis and No Edema
Neuro: Awake, Alert and Oriented, no gross neurological deficit but right foot drop and generalized weakness. Strength normal, no sensory deficits, DTR 2+ symmetrical, no Babinski.
Psych: Calm
Recurrent seizures - CT head no abnormalities, neurology consult-discussed with neuro. Myasthenia gravis outpatient workup. Neurology to report seizure to the [facility], no driving for 6 months. Discussed with neurology service and patient. Can
discharge on higher dose of Keppra 1500 mg twice daily as per neurology service. Midazolam nasal spray as needed for seizures. I asked neurology PURCHASE ORDER CHECKER to send prescription for midazolam to her pharmacy as I suspect it may require prior authorization.
E. coli UTI -pansensitive on culture. Discharge on Augmentin. Discussed with patient.
Trigeminal neuralgia -continue gabapentin and Trileptal
Essential hypertension -continue amlodipine 10 mg daily and metoprolol succinate 25 mg daily and losartan 100 mg daily
Hyponatremia -improved.
Hyperthyroidism -continue methimazole.
Depression -continue escitalopram 20 mg daily
Multiple sclerosis -she has been on rituximab, follow-up neurology as outpatient
Rheumatoid arthritis -she has been on methotrexate and rituximab and tofacitinib, follow-up rheumatology outpatient
IBS, constipation -continue Linzess
Hyperlipidemia -restart statin
Full code
Dispo -medically stable for discharge. Outpatient follow-up.
32 minutes spent in discharge process.
Anticipated Discharge: Today
Subjective/Interval History
-
Date of Service: September 28, 2023
Patient seen and examined. Overall feeling better. No complaints.
Objective Data
-
Labs:
Laboratory Results
09/28/23
05:51
Sodium 139
Potassium 4.9
Chloride 101
Carbon Dioxide 27
BUN 14
Creatinine 0.8
Glucose 95
Calcium 10.2
Vital Signs:
Vital Signs
Temp Pulse Resp BP Pulse Ox
98.1 F 50 18 125/56 99
09/28/23 07:00 09/28/23 07:00 09/28/23 07:00 09/28/23 07:00 09/28/23 07:30
I&O
09/27/23 09/28/23 09/29/23
06:59 06:59 06:59
Intake Total 1560 / 1560 960 / 960
Balance 1560 / 1560 960 / 960
Review of Systems
-
History Source: Patient
All other systems: Reviewed and negative
[2023-09-28] MEDS: ROCEPHIN 1000 MG IV (11:45)
[2023-09-28] MEDS: STERILE WATER FOR INJECTION 10 ML IV (11:45)
--- NOTE | 2023-09-28 12:59 | CM ---
Patient seen bedside.
IMM completed.
Plan: Home with [facility]
--- NOTE | 2023-09-28 14:39 | PTCARENOTE ---
Rn social media coordinator- Patient cleared for discharge. reviewed discharge instructions with patient. Patient questioned if she had an immediate acting nasal anti-seizure medication ordered. None noted in chart. As per Bianca primary nurse the
neurologist rachel is looking into what medication that her insurance pays for. Informed patient about above. Patient will continue to follow up with pharmacy to find out what is ordered.
--- NOTE | 2023-09-29 12:21 | W.DS.TRANS ---
DC Summary - Claims Director
-
Discharge Instructions:
Discharge Diagnosis/Procedures Recurrent seizure, UTI
Diet Low Cholesterol,Low Fat
Activity As tolerated
Driving Restrictions No driving for 6 months
Bathing Restrictions None
Instructions:
Stand-Alone Forms:
Changes to Home Medications: No
Discharge Medications:
DC Medications w/original date entered in [facility]
multivitamin with folic acid 400 mcg tablet (Tab-A-Pablo) 1 tab PO DAILY Supplement 01/11/16
amlodipine 10 mg tablet 10 mg PO DAILY Blood pressure 05/18/18
gabapentin 600 mg tablet 1,200 mg PO BID Seizures 05/18/18
ibuprofen 800 mg tablet (IBU) 800 mg PO TIDPRN PRN mild pain 05/18/18
methimazole 5 mg tablet 5 mg PO SUTUTHSA Thyroid 05/18/18
temazepam 30 mg capsule 30 mg PO HS Sleep 05/18/18
metoprolol succinate 25 mg tablet,extended release 24 hr (Toprol XL) 25 mg PO DAILY Heart Failure 02/10/22
escitalopram oxalate 20 mg tablet 20 mg PO DAILY Depression 03/31/22
losartan 100 mg tablet 100 mg PO DAILY Blood Pressure 03/31/22
omega 0-qvh-ccu-fish oil 1,000 mg (120 mg-180 mg) capsule (Fish Oil) 1 cap PO DAILY High Cholesterol 03/31/22
cholecalciferol (vitamin D3) 50 mcg (2,000 unit) tablet (Vitamin D3) 125 mcg PO DAILY Supplement 09/26/23
linaclotide 145 mcg capsule (Linzess) 145 mcg PO DAILY Constipation 09/26/23
rosuvastatin 5 mg tablet 5 mg PO DAILY High Cholesterol 09/26/23
amoxicillin 875 mg-potassium clavulanate 125 mg tablet 1 tab PO BID #6 tabs 09/28/23
levetiracetam 750 mg tablet 1,500 mg (2 x 750 mg) PO BID #120 tabs 09/28/23
Home Medication Changes
Pending Results: No
== END 2023-09-28 14:56 | disposition home health service (06) | DRG 101 ==
LOC: 4 WEST ACU 03:47
PROVIDERS: ADMITTING PHYSICIAN Internal Medicine; ATTENDING PHYSICIAN Hospitalist; CONSULT PHYSICIAN Psychiatry & Neurology Neurology; EMERGENCY PHYSICIAN Emergency Medicine
DX: G40.209 Localization-related (focal) (partial) symptomatic epilepsy and epileptic syndromes with complex partial seizures, not intractable, without status epilepticus (principal); E87.1 Hypo-osmolality and hyponatremia; N39.0 Urinary tract infection, site not specified; M06.9 Rheumatoid arthritis, unspecified; B96.20 Unspecified Escherichia coli [E. coli] as the cause of diseases classified elsewhere; I10 Essential (primary) hypertension; F32.A Depression, unspecified; G35 Multiple sclerosis; E78.00 Pure hypercholesterolemia, unspecified; E05.90 Thyrotoxicosis, unspecified without thyrotoxic crisis or storm; E04.1 Nontoxic single thyroid nodule; G50.0 Trigeminal neuralgia
CPT/HCPCS: 51798; 70450; 80048; 80053; 80177; 81003; 81015; 82248; 82550; 82607; 82728; 82746; 83036; 84443; 84484; 85025; 87086; 87088; 87186; 93005; 95813; 96374; 96375; 97116; 97162; 97166; 99285

== ENCOUNTER 2023-10-11 19:23 | Inpatient (IN) | payer OTHER, SELFPAY ==
[2023-10-11] VITALS (10 sets, daily range): BP systolic 110–154; BP diastolic 51–65; BMI 22.7
--- NOTE | 2023-10-11 16:00 | ED.GENMED ---
History of Present Illness
General
Chief Complaint: Seizure
Source: patient
Exam Limitations: none
Time Seen by Provider: 10/11/23 15:53
Nursing documentation reviewed up to this point in time: agreed with
History of Present Illness
History of Present Illness:
73-year-old female past medical history of MS, seizures related to MS presents to the ER for seizure. reports patient was just admitted September 28 2 days for recurrent seizures. Patient is on Keppra as well as gabapentin. Keppra was
increased during previous admission to 1500 mg twice daily. she is followed by Dr. Flores of neurology at [place]
reports patient had 2 seizures today. reports her typical seizures where she does not lose full consciousness. She has a sensation where she feels dizzy and feels like she is falling and then starts to tense up and shake. She does
have urinary incontinence during seizure.
reports they were initially given a prescription for midazolam nasal spray but that did not come in from pharmacy yet.
reports patient is scheduled to see a epilepsy specialist Dr. Bianca Sandoval at [place] in December.
Past History
Past History
ED Past Medical History: Hypercholesterolemia, Seizures, Psychiatric (Depression), Other (Multiple sclerosis, chronic right neck pain/trigeminal neuralgia, migraine headaches, chronic burping, RA, osteopenia, duodenitis, mesenteric vasculitis),
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
ED Past Surgical History: Gynecological (D&C, endometrial ablation 1997), Orthopedic (Laminectomy 1990, 1993; left knee arthroscopy) and Other (Partial thyroidectomy for removal of thyroid nodule)
Patient has exhibited threatening behavior?: No
PSI?: No
Social History
Tobacco: Non-smoker
Alcohol: None
Drug: None
Personal:
Living: with family
Employment: Disabled
Family History
Family History: Other (reviewed and Noncontributory)
Review of Systems
Review of Systems
Allergies reviewed?: Yes
Other source history: family
All Other Systems: ROS reviewed and negative except as documented in HPI and ROS
Constitutional: Reports no symptoms; Denies fever, fatigue or chills
Phy Exam
General Physical Exam
General Presentation: no apparent distress
General age: appears stated age
General Skin: warm and dry
General Habitus: normal
General Hydration: appears well hydrated
Cardiovascular Exam
Cardiovascular Exam: regular rate/rhythm, no murmur and normal peripheral pulses
Pulmonary Exam
Pulmonary Exam: lungs clear and no respiratory distress
Neurological Exam
Neurological Exam: other (Pt was laying on left side moaning mildly grasping bedside rail slight tremors ; not answering questions )
Musculoskeletal Exam
Musculoskeletal Exam: other (On initial exam patient lying on left side as documented above tremors)
Skin Exam
Skin Exam: normal color and warm/dry
Course
Orders/Labs/Results
Orders:
Orders
10/11/23 Breakfast
Cholesterol Lowering
At Your Request: Limited Participation
Cholesterol Lowering: Sodium, 2 Gram
10/11/23 16:00
Cardiac Monitoring- Treatment ONCE
IV Insert/Care/Rem.- Treatment PRN
0.9% Sodium Chloride 1000 ml [Nss] 1,000 ml IV BOLUS
Lorazepam [Ativan] 1 mg IV NOW STA
10/11/23 16:01
Electrocardiogram (*1) Stat
Reason for Study: Abdominal Pain
EKG- Treatment ONCE
10/11/23 16:07
Complete Blood Count/With Diff Urgent
Comprehensive Metabolic Panel Urgent
TSH Reflex To Free T4 Urgent
Comment: ADD ON
10/11/23 17:47
Levetiracetam [Keppra] 1,500 mg PO NOW STA
10/11/23 17:54
Lacosamide [Vimpat] 50 mg IV NOW STA
10/11/23 18:29
Add On- LAB Urgent
Tests Added?: TSH reflex fT4
10/11/23 18:35
Admit/Transfer Patient As Directed
Co-Sign Provider:
Level of Care: Inpatient admission
Assign to:: Medical/Surgical
Physician / Group: Geovanna
Diagnosis: seizures
Reason for Hospitalization: seizures
Expected length of stay greater than two midnights?: Yes
ELOS- Estimated Length of Stay in days: 3
I certify the patient meets the requirements for IP care: Yes
PRN Pain Medication Management As Directed
May give lesser potent ordered pain med per pt: Yes
preference::
Protocol:: Medication orders for pain may be administered in a
manner that supports deferring to patient preference
when the pt is:
- Requesting an ordered lesser potent pain medication.
Least to most potent pain medications are defined
as: acetaminophen < NSAID < tramadol < opioids
(morphine, oxycodone, hydromorphone).
- Requesting a lesser dose of the same medication IF
ORDERED.
- Requesting a less intrusive route of administration
if both routes are prescribed by the provider (PO <
IV).
10/11/23 18:37
Code Status As Directed
Resuscitation Status: Do not resuscitate
Reached after discussion with pt or family/Healthcare POA: Yes
DNR Bracelet Application ONCE
10/11/23 18:41
Lactic Acid Stat
10/11/23 19:54
0.9% Sodium Chloride 1000 ml [Nss] 1,000 ml IV 125 mls/hr
Acetaminophen [Tylenol] 650 mg PO Q4HPRN PRN
Bisacodyl [Dulcolax] 10 mg RECTAL V93DMUD PRN
Docusate W/Senna [Senokot-S] 1 tablet PO BIDPRN PRN
Linaclotide [Linzess] 145 mcg PO DAILYPRN PRN
Lorazepam [Ativan] 1 mg IV Q4HPRN PRN
Ondansetron Injectable [Zofran] 4 mg IV Q6HPRN PRN
Polyethylene Glycol Powder [Miralax] 17 grams PO DAILYPRN PRN
10/11/23 19:54
NEUROLOGY CONSULT Routine
Consulting Provider: Pipe Wetzel
Was physician already notified: Yes
Reason for consult: seizures
EEG Routine Routine
Reason for Exam: seizures
Activity As Directed
Activity Level: With Assistance
Vital Signs As Directed
Frequency: Per unit guidelines
DX Deep Vein Thrombosis Video Routine
10/11/23 21:00
Gabapentin [Neurontin] 900 mg PO BID
10/11/23 22:00
Magnesium l-Lactate [Mag-Tab Sr] 252 mg PO HS
Temazepam [Restoril] 30 mg PO HS
10/12/23 06:00
Basic Metabolic Panel IN AM
Complete Blood Count/No Diff IN AM
10/12/23 08:00
Amlodipine [Norvasc] 10 mg PO DAILY
Calcium Polycarbophil [Fibercon] 625 mg PO DAILY
Cholecalciferol (Vitamin D3) [VITAMIN D3 (cholecalciferol)] 125 mcg PO DAILY
Escitalopram Oxalate [Lexapro] 20 mg PO DAILY
Lacosamide [Vimpat] 50 mg IV Q12H
Levetiracetam [Keppra] 1,500 mg PO BID
Losartan [Cozaar] 100 mg PO DAILY
Methimazole [Tapazole] 5 mg PO SuTuThSa@0800
Metoprolol Xl [Toprol Xl] 25 mg PO DAILY
Multivitamin [Theragran] 1 tablet PO DAILY
Rosuvastatin Calcium [Crestor] 5 mg PO DAILY
omega 3-tuc-pza-fish oil [Fish Oil] 1 cap PO DAILY
10/12/23 18:00
Enoxaparin Sodium [Lovenox] 40 mg SC QPM
Abnormal Lab Results
10/11/23
16:07
WBC 12.9 H 10^3/uL
(4.8-10.8)
Hct 36.5 L %
(37.0-47.0)
MCV 78.2 L fL
(81.0-99.0)
MCH 26.1 L pg
(27.0-31.0)
Absolute Lymphs (auto) 6.8 H 10^3/uL
(1.2-3.4)
Absolute Monos (auto) 1.2 H 10^3/uL
(0.1-0.6)
Neutrophils % 33.6 L %
(42.2-75.2)
Lymphocytes % 53.1 H %
(20.5-51.1)
Carbon Dioxide 16 L mmol/L
(22-30)
BUN 19 H mg/dl
(7-17)
Glucose 159 H mg/dl
(70-99)
Calcium 10.6 H mg/dl
(8.4-10.2)
AST 38 H U/L
(14-36)
Alkaline Phosphatase 165 H U/L
(38-126)
10/11/23 16:07
10/11/23 16:07
Vital Signs
Initial and Last Documented VS:
Initial Vital Signs
Temp Pulse Resp BP Pulse Ox
98.2 F 96 24 154/63 99
10/11/23 15:50 10/11/23 15:50 10/11/23 15:50 10/11/23 15:50 10/11/23 15:50
Last Documented Vital Signs
Temp Pulse Resp BP Pulse Ox
98.2 F 96 18 131/54 98
10/11/23 20:19 10/11/23 20:19 10/11/23 20:19 10/11/23 20:19 10/11/23 20:19
MDM/Problems Addressed
Differential Diagnosis Includes:
not limited to: seizure
MDM/Problems Addressed:
Patient is a 73-year-old female with MS and history of seizures intermittently for the past several years followed by neurology at [facility] by Dr. Flores. Patient was recently as document admitted September 25 for seizures here and her Keppra was
increased. She has been taking this full increased dose but still having seizures. Has reports she has several at home. I did witnessed 2 seizures here in the ER during my initial exam however reports after I left room patient had
additional seizures. His seizures consisted patient moving to her left side holding the railing moaning with mild shaking. Patient does have urinary continence with this. She was given Ativan for the
1744: Patient awake alert feeling better however feels very weak does not feel that she can go home. I did speak with neurology Dr. Pipe Wetzel who does recommend giving patient her evening Keppra 1500 mg dose and also IV Vimpat will adm for
weakness/seizure .
Chronic conditions affecting care:
MS/seizures
*Pulse Oximetry
Patient hypoxic: no
*Critical Care Note
Total Time (30-74mins, 75-104mins- exclusive of procedures): Not Applicable
Data Reviewed
Review of Other/Old Records Reveals: Radiology Studies, Testing and Discharge Summary
Patient Management
Discussion with other providers: Medical Record Clerk (neuro, DR Pipe Wetzel )
ED Attending Note
-
Portions of this chart may have been created with voice recognition software.� Occasional wrong word or��sound alike� substitutions may have occurred due to the inherent limitations of voice recognition software.
Discharge Plan
Departure
Patient Disposition: Admit
Date of Disposition: 10/11/23
Time of Disposition: 18:00
Admit to: Telemetry
Admit to doctor: hospitalist
Presentation/result/management discussed w/ accepting MD/DO: Hospitalist
Patient with high blood pressure during this ER visit?: Yes
Condition: Fair
Covid-19: Not Applicable
Discharge Problem:
Seizure
Interventions
Interventions:
*Risk Screen - Suicide Last Done: 10/11/23 20:24
*General Assessment Last Done: 10/11/23 15:50
*Neglect/Abuse Screening Last Done: 10/11/23 15:50
ED- Fall Risk Assessment Last Done: 10/11/23 15:50
*ED COVID-19 Vaccine History Last Done: 10/11/23 20:24
*Nursing Disposition Last Done: 10/11/23 19:52
ED- Cardiac Assessment Last Done: 10/11/23 16:01
ED- Neurological Assessment Last Done: 10/11/23 15:50
ED- Pulmonary Assessment Last Done: 10/11/23 16:01
Discharge Date and Time
Discharge Date/Time: 10/11/23 19:53
[2023-10-11] MEDS: NSS 1000 IV ×2 (16:08→20:36)
[2023-10-11] MEDS: ATIVAN 1 MG IV (16:10)
[2023-10-11 16:18] LABS: Hematocrit 36.5 % (37.0-47.0); Hemoglobin 12.2 g/dL (12.0-16.0); Mean Corp Hgb Conc. 33.4 g/dL (33.0-37.0); Mean Corpuscular Hgb 26.1 pg (27.0-31.0); Mean Corpuscular Volume 78.2 fL (81.0-99.0); Mean Platelet Volume 10.1 fL (7.4-10.4); Platelet Count 297 10^3/uL (130-400); Red Blood Cell Count 4.67 10^6/uL (4.20-5.40); Red Cell Dist. Width 13.5 % (11.5-14.5); White Blood Cell Count 12.9 10^3/uL (4.8-10.8)
[2023-10-11 16:32] LABS: ALT (SGPT) 24 U/L (0-35); AST (SGOT) 38 U/L (14-36); Albumin 4.7 g/dl (3.5-5.0); Alkaline Phosphatase 165 U/L (38-126); Blood Urea Nitrogen 19 mg/dl (7-17); Calcium 10.6 mg/dl (8.4-10.2); Carbon Dioxide 16 mmol/L (22-30); Chloride 103 mmol/L (98-107); Estimated Creatinine Clearance 56 ml/min; Glucose 159 mg/dl (70-99); Potassium 4.3 mmol/L (3.5-5.1); Sodium 140 mmol/L (135-145); Total Bilirubin 0.4 mg/dl (0.2-1.3); Total Protein 6.8 g/dl (6.3-8.2); eGFR > 60.00
[2023-10-11 17:07] LABS: % Basophils 0.5 % (0-2); % Eosinophils 3.6 % (0-6); % Immature Granulocytes 0.3 % (0-0.5); % Lymphocytes 53.1 % (20.5-51.1); % Monocytes 8.9 % (1.7-9.3); % Neutrophils 33.6 % (42.2-75.2); Absolute Basophils 0.1 10^3/uL (0-0.2); Absolute Eosinophils 0.5 10^3/uL (0-0.7); Absolute Lymphocytes 6.8 10^3/uL (1.2-3.4); Absolute Monocytes 1.2 10^3/uL (0.1-0.6); Absolute Neutrophils 4.3 10^3/uL (1.4-6.5); Nucleated Red Blood Cells % 0 %
[2023-10-11] MEDS: VIMPAT 50 MG IV (18:03)
--- NOTE | 2023-10-11 18:09 | HPS.HSE ---
Family Physician
-
Family Physician:
Chief Complaint
-
seizures
History of Present Illness
73 y/o F with PMHx:
Multiple sclerosis
Seizure disorder
Trigeminal neuralgia
Essential hypertension
Hyper thyroidism
Hyperlipidemia
Who presents with acute seizure activity. On previous hospitalization her Keppra was increased. Patient had multiple, consecutive seizures earlier today. As per the patient's she never has tonic-clonic activity. Her seizure symptoms do
not involve completely losing consciousness. She is able to hear people around her. She has some tremor and urinary continence after having the sensation of dizziness and falling. Since her discharge she has had persistent lower extremity
weakness. She also feels that she has 'no energy.' 2 days ago the patient reports she had a fever of 103 �F. Yesterday she states she had 2 episodes of epistaxis. Denies any chest pain, shortness of breath, nausea, vomiting, diarrhea, abdominal
pain, cough, dysuria, change in urinary frequency.
Medical History
Past Medical History
Past Medical History: Reports Other (as per HPI)
Past Surgical History: Reports Other (N/A)
Social History
Tobacco: Non-smoker
Alcohol: None
Drug: None
Family History
Family History: Not pertinent
Allergies / Home Medications
Allergies reflects when Allergies were last updated in [employer].
Home Medications with original date entered in [employer]
Allergy/Medication List:
Allergies
Allergy/AdvReac Type Severity Reaction Status Date / Time
adhesive tape [Adhesive Tape] Allergy Rash, Verified 10/11/23 15:54
Burning
morphine Allergy NAUSEA/VOMI Verified 10/11/23 15:54
TING
povidone-iodine Allergy Itching, Verified 10/11/23 15:54
[From Betadine] rash
silver Allergy Itching Verified 10/11/23 15:54
soap [From Betadine] Allergy Itching, Verified 10/11/23 15:54
rash
tramadol Allergy SEE BELOW Verified 10/11/23 15:54
Home Medications
amlodipine 10 mg tablet 10 mg PO DAILY Blood pressure 05/18/18
gabapentin 600 mg tablet 1,200 mg PO BID Seizures 05/18/18
methimazole 5 mg tablet 5 mg PO SUTUTHSA Thyroid 05/18/18
temazepam 30 mg capsule 30 mg PO HS Sleep 05/18/18
metoprolol succinate 25 mg tablet,extended release 24 hr (Toprol XL) 25 mg PO DAILY Heart Failure 02/10/22
escitalopram oxalate 20 mg tablet 20 mg PO DAILY Depression 03/31/22
losartan 100 mg tablet 100 mg PO DAILY Blood Pressure 03/31/22
linaclotide 145 mcg capsule (Linzess) 145 mcg PO DAILYPRN PRN constipation 09/26/23
rosuvastatin 5 mg tablet 5 mg PO DAILY High Cholesterol 09/26/23
levetiracetam 750 mg tablet 1,500 mg (2 x 750 mg) PO BID #120 tabs 09/28/23
abatacept 125 mg/mL subcutaneous syringe (Orencia) 125 mg SC BURROWS 10/11/23
cholecalciferol (vitamin D3) 125 mcg (5,000 unit) tablet (Vitamin D3) 125 mcg PO DAILY 10/11/23
ibuprofen 200 mg tablet 800 mg PO Q8HPRN PRN mild pain 10/11/23
magnesium oxide 1,200 mg PO HS 10/11/23
methylcellulose (laxative) 500 mg tablet (Citrucel) 500 mg PO DAILY 10/11/23
omega 3-dat-gxm-fish oil 1,200 mg (144 mg-216 mg) capsule (Fish Oil) 1 cap PO DAILY 10/11/23
therapeutic multivitamin 1 tab PO DAILY 10/11/23
Review of Systems
-
A 12 point ROS was completed and negative except as noted: Yes
Constitutional: Reports No Symptoms
Physical Exam
Vital Signs
Vital Signs
Temp Pulse Resp BP Pulse Ox
98.2 F 70 16 111/53 92
10/11/23 15:50 10/11/23 17:30 10/11/23 18:00 10/11/23 17:30 10/11/23 17:30
Physical Exam
General: Other (.)
Laboratory Results
-
10/11/23 16:07
10/11/23 16:07
Laboratory Results
Total Bilirubin 0.4 mg/dl (0.2-1.3) 10/11/23 16:07
AST 38 U/L (14-36) H 10/11/23 16:07
ALT 24 U/L (0-35) 10/11/23 16:07
Alkaline Phosphatase 165 U/L (38-126) H 10/11/23 16:07
Impression/Plan
-
Gen: NAD, AAOx3.
Eyes: EOMI, PERRLA, no scleral icterus.
Neck: supple.
CV: RRR, +S1/S2, no m/r/g.
Resp: CTAB, no rales, wheezes, or rhonchi.
Abd: +BS, soft, NT, ND
Skin: No rashes.
Neuro: CN 2-12 intact, 2/5 strength B/L LEs
Psych: Normal mood and affect.
Acute seizure activity:
-Underlying multiple sclerosis seizure disorder
-Continue Keppra
-Continue Vimpat 50 mg twice daily
-check EEG
-c/s neurology
-Ativan PRN
AG metabolic acidosis:
-check lactic acid
-IVFs
Other problems:
HLD: cont statin
Hyperthyroidism: Check TSH, continue methimazole
Trigeminal neuralgia: cont Neurontin
Essential hypertension: cont Norvasc/Losartan/Toprol XL
DNR/Lovenox
[2023-10-11] MEDS: KEPPRA 1500 MG PO (18:39)
[2023-10-11 19:09] LABS: Lactic Acid 1.3 mmol/L (0.7-2.0)
[2023-10-11 19:37] LABS: TSH Reflex To Free T4 0.72 uIU/ml (0.47-4.68)
--- NOTE | 2023-10-11 20:31 | PTCARENOTE ---
Patient admitted to unit via stretcher with dx of Seizures. AAAOx3. Pleasant and cooperative with care. No c/o pain at current time. Assist of 1 to bedside commode. Seizure padding to bedside rails in place. Oriented to unit. Call dias within reach.
Patient educated on using call bel lfor all assists with patient showing acknowledgment and agreeable to using call dias.
[2023-10-11] MEDS: NEURONTIN 900 MG PO (20:35)
[2023-10-11] MEDS: RESTORIL 30 MG PO (21:10)
[2023-10-11] MEDS: MAG-TAB SR 252 MG PO (21:10)
[2023-10-12] MEDS: NSS 1000 IV ×2 (04:03→12:39)
[2023-10-12 07:10] VITALS: BP 114/45
[2023-10-12 07:54] LABS: Blood Urea Nitrogen 13 mg/dl (7-17); Carbon Dioxide 21 mmol/L (22-30); Chloride 111 mmol/L (98-107); Estimated Creatinine Clearance 56 ml/min; Glucose 81 mg/dl (70-99); Potassium 4.5 mmol/L (3.5-5.1); Sodium 144 mmol/L (135-145); eGFR > 60.00
[2023-10-12 08:03] LABS: Hematocrit 31.3 % (37.0-47.0); Mean Corp Hgb Conc. 31.9 g/dL (33.0-37.0); Mean Corpuscular Hgb 25.4 pg (27.0-31.0); Mean Corpuscular Volume 79.6 fL (81.0-99.0); Mean Platelet Volume 10.1 fL (7.4-10.4); Platelet Count 230 10^3/uL (130-400); Red Blood Cell Count 3.93 10^6/uL (4.20-5.40); Red Cell Dist. Width 13.7 % (11.5-14.5)
[2023-10-12] MEDS: VIMPAT 50 MG IV ×2 (08:11→19:36)
[2023-10-12] MEDS: CRESTOR 5 MG PO (08:15)
[2023-10-12] MEDS: LEXAPRO 20 MG PO (08:15)
[2023-10-12] MEDS: NEURONTIN 900 MG PO ×2 (08:15→19:36)
[2023-10-12] MEDS: FIBERCON 625 MG PO (08:15)
[2023-10-12] MEDS: VITAMIN D3 (cholecalciferol) 125 MCG PO (08:15)
[2023-10-12] MEDS: THERAGRAN 1 TABLET PO (08:17)
[2023-10-12] MEDS: NORVASC 10 MG PO (08:17)
[2023-10-12] MEDS: KEPPRA 1500 MG PO ×2 (08:17→19:36)
[2023-10-12] MEDS: COZAAR 100 MG PO (08:17)
[2023-10-12] MEDS: TOPROL XL 25 MG PO (08:17)
[2023-10-12] MEDS: TAPAZOLE 5 MG PO (08:22)
--- NOTE | 2023-10-12 08:47 | VNURNOTE ---
Chart reviewed. Patient is current with [facility] nursing, PT, OT. Will continue to follow hospital course and DC plans.
--- NOTE | 2023-10-12 09:58 | CON.NEURO4 ---
Documented by User: Marcela Myers NP 10/12/23 13:32
Consultation - Neurology 4
-
CONSULTING PHYSICIAN: Pipe Weztel MD
REFERRING PHYSICIAN: Hospitalists/Dr. Austin
DICTATED BY: ARAMIS Rojo
DATE/TIME OF REQUEST: 10/11/23
DATE/TIME OF CONSULTATION: 10/12/23
Reason for Consultation: Seizure
History of Present Illness:
This is a 73-year-old right-handed female who has presented to the hospital with report of breakthrough seizures. Patient was recently hospitalized at from 09/26/23-09/29/23 and evaluated by our Neurology service for breakthrough seizures.
From my previous evaluation on 09/26/23:
''This is a 73-year-old right-handed female who has presented to the hospital with report of seizures. Patient has a history of partial seizures, and trigeminal neuralgia and is followed as an outpatient by neurology Dr. Urban Flores at [facility]. She
has also been evaluated at by neurology several times in the past.
From previous evaluation by Dr. Krishna on 03/02/20:
'Patient was evaluated by this inpatient Hospital neurology consult service in January 2017 at which time she was experiencing episodic changes in mental status. Associated symptoms at that time included tinnitus, a sense of being pulled from her
own body, and aphasia. Episodes lasted less than 1 minute at that time. The episodes were similar to when she had utilized tramadol. EEG testing at that time was unremarkable. Patient was placed on Levetiracetam at that time. In 2019, the patient
was evaluated in inpatient neurologic consultation and instructed to discontinue oxcarbazepine and to increase her dose of gabapentin due to discovery of hyponatremia.
Patient returned to this hospital with recurrent episodes of changes in mental status. Started 2 days ago with worsening because more frequent since 1700 1 day ago, unable to breathe. Is having bladder incontinence, no tongue biting, or bowel
incontinence. Continued and on-going symptoms of mental status change. No known modifying factors.
Patient has a long-standing history of multiple sclerosis diagnosed approximately in 2006 and followed routinely by an outside neurologist (Dr. Urban Flores). Patient is described as having chronic trigeminal neuralgia on the right and left sides for
which she is utilized both oxcarbazepine and gabapentin, as described. According to records, the patient has used valproic acid previously. Patient is described in records as being noncompliant with glatiramer acetate as well as Teriflunomide. The
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 Changed to Methotrexate since discontinuance of rituximab.
According to records, the patient switched from sertraline to escitalopram as of November 2019. Started Tofacitinib 6 weeks ago for rheumatoid arthritis.'
Patient reports that since 2019 she has been off of DMT for MS. She reports chronic right foot drop starting a few years ago and she ambulates with a cane at baseline. She also notes 1-2 years of issues with slurred speech primarily in the evening,
BUE weakness with activities like brushing/flossing her teeth, and swallowing difficulty/feeling like food gets stuck in her throat. She notes intermittent diplopia starting around 2009, mostly with lateral gaze. She denies noticing any eyelid
drooping. She reports being tested for myasthenia antibodies about 10 years ago and they were negative.
Patient reports that her last seizure was in February 2022. She has been taking Keppra 1000mg for years now and denies missing any doses. Last night (09/25/23), patient reports she was in her usual state when suddenly while lying in bed watching TV
she developed a diffuse 'heavy body' sensation that she gets before her typical seizures. She then reports that her body became rigid, she could hear/understand speech but was unable to verbally respond, and she was incontinent of urine. She denies
losing consciousness or biting her tongue. She proceeded to have 5 episodes like this lasting about 1 minute each, followed by feeling lethargic. She reports developing a right-sided headache following these events. On arrival in the ER she was
witnessed to have another event and received an additional Keppra 1000mg IV and lorazepam. CT head was obtained and is negative for any acute abnormalities. WBC is 12.1, patient is afebrile. Currently, patient reports feeling tired with some
increased BLE weakness compared to baseline. She reports her chronic intermittent diplopia, difficulty swallowing, and right foot drop. She denies any vision loss, dizziness, speech difficulty, numbness, chest pain, palpitations, and shortness of
breath. She denies any recent fever or illness but she does note dysuria. Urinalysis is suggestive of possible UTI.''
EEG on 09/26/23 was negative for seizure. Urine culture was positive for E. Coli and she completed a course of Augmentin. Her home Keppra 1000mg BID was increased to 1500mg BID prior to discharge. Nayzilam was sent to her outpatient pharmacy prior
to discharge, she reports it was supposed to arrive at her pharmacy today. Patient reports that she followed up with her outpatient Neurology Dr. Urban Flores last week, who continued her on Keppra 1500mg BID, referred her to see an epilepsy
specialist, and also ordered MRIs of her brain, cervical, and thoracic spine. Patient reports that since hospital discharge, she has noted an increase in word-finding difficulty and her gait has been more ataxic. Patient reports that three days ago
on 10/09/23 she was at [facility] and suddenly felt severely off-balance and needed assistance to get back to her car. Later that night, she reports having chills and a fever of 103F. Her fever resolved but she notes feeling more fatigued since then. She
denies any cold symptoms, dysuria, urinary frequency, or sick exposures. Then yesterday (10/11/23), she note that around 1500 she went into the bathroom to wash her hands and developed her seizure aura which she describes as a dizzy sensation and
entire body extreme weakness. She had to lower herself to the floor, then persisted to have multiple seizures. She reports they were similar to her usual seizure, no loss of consciousness but she cannot speak, her body stiffens, she is incontinent
of urine, and her whole body is tremulous. Her notes that the seizure lasted 30-40 seconds before resolving for a couple of minutes, but then kept recurring about 15 times over a 30 minute period. On arrival in the ER she received lorazepam
1mg, Keppra 1500mg, and Vimpat 50mg IV x1 with relief of her seizures. Today (10/12/23), she reports still feeling extreme fatigue and BLE weakness R>L. She denies any headache, dizziness, vision changes (chronic intermittent diplopia), speech/swallow
difficulty, numbness, chest pain, palpitations, and shortness of breath. She denies missing any doses of her Keppra.
Past Medical History: Partial seizure disorder, multiple sclerosis, rheumatoid arthritis, chronic right neck pain/trigeminal neuralgia, HLD, migraines, chronic burping, depression, anxiety, insomnia, osteopenia, duodenitis, mesenteric vasculitis,
thyroid nodule, right foot drop, diplopia, chronic constipation, hiatal hernia, spastic pelvic floor syndrome
Past Surgical History: Partial thyroidectomy, L4/L5 discectomy/laminectomy, D&C, endometrial ablation, L knee arthroscopy, right hand finger surgery, sinus surgery, fibroma removed from lower lip, left bunionectomy
Family History: Reviewed and noncontributory.
Social History: Denies tobacco, alcohol, and illicit drug use.
Allergies: Adhesive tape, morphine, tramadol, povidone-iodine, soap, silver.
Home Medications: See below.
Review of Symptoms:
Patient denies any fever, headache, chest pain, shortness of breath, GI or symptoms.
�Per the HPI.�All systems are reviewed negative except above.
Physical Exam:
The patient is afebrile, abdomen is nondistended, breathing is unlabored, skin is warm and dry, no edema.
Neurologic Examination:
The patient is awake, alert and oriented x 3. She is able to follow commands and answer questions appropriately. There is no aphasia or dysarthria. On cranial nerve assessment, pupils are 3 mm bilateral, round and reactive to light and
accommodation. Visual haskins are full. Extraocular movements are intact. Facial sensations are intact and bilaterally symmetrical, there is no facial asymmetry. Hearing is intact bilaterally to normal conversation volume. Tongue palate and uvula are
midline. Sternocleidomastoid strengths are full bilaterally. Motor strengths are 5/5 bilateral upper, 2+/5 right lower, and 3-/5 left lower extremities on medical research [place] scale. R dorsi/plantarflexion 3/5. No involuntary movement noted.
Deep tendon reflexes are 2+ bilateral upper and lower extremities and Babinski is absent bilaterally. Sensations of touch, temperature and vibration are intact and bilaterally symmetrical. There was no extinction noted on double simultaneous
stimulation. Coordination is intact by finger to nose bilaterally.
Lab Results: See below.
Neuro Imaging:
1. CT Head 10/11/23: There are no focal or acute intracranial abnormalities. There is mild diffuse cortical and cerebellar atrophy.
Differentials for the patient's presentation include:
1. Breakthrough seizures; unclear cause, possibly viral illness given report of fever/chills this week.
2. Cannot exclude new structural brain abnormality contributing to recurrent seizures.
Patient has the following risk factors for their symptoms: Seizure disorder, MS, fever
Recommendations:
-Continue Keppra 1500mg PO BID.
-Continue Vimpat 50mg PO BID.
-MRI brain w/ and w/o contrast pending.
-Infection workup per primary team.
-Seizure precautions.
-PT/OT/ST evaluations.
-PRN Nayzilam at home for rescue therapy.
-Agree with referral as an outpatient to an epilepsy specialist.
-Will follow pending results.
Discussed patient care with: Dr. Wetzel, the patient, patient's spouse
Vital Signs and Labs
-
Vital Signs and Labs:
Vital Signs
Temp Pulse Resp BP Pulse Ox
97.8 F 60 14 114/45 100
10/12/23 07:10 10/12/23 08:17 10/12/23 07:10 10/12/23 08:17 10/12/23 07:10
Lab Results
10/12/23 06:35
10/12/23 06:35
Sodium 144 mmol/L (135-145) 10/12/23 06:35
Potassium 4.5 mmol/L (3.5-5.1) 10/12/23 06:35
BUN 13 mg/dl (7-17) 10/12/23 06:35
Glucose 81 mg/dl (70-99) 10/12/23 06:35
Calcium 9.0 mg/dl (8.4-10.2) D 10/12/23 06:35
Medications
-
Active Medications
Generic Name Dose Route Start Last Admin
Trade Name Freq PRN Reason Stop Dose Admin
Acetaminophen 650 mg 10/11/23 19:54
Acetaminophen 325 Mg Tablet PO 11/08/23 19:53
Q4HPRN PRN
mild pain/BUCHANAN/temp> 100.4F
Amlodipine Besylate 10 mg 10/12/23 08:00 10/12/23 08:17
Amlodipine 10 Mg Tablet PO 11/09/23 07:59 10 mg
DAILY ELOISE Administration
Bisacodyl 10 mg 10/11/23 19:54
Bisacodyl 10 Mg Rectal Suppository RECTAL 11/08/23 19:53
[id number] PRN
constipation
Calcium Polycarbophil 625 mg 10/12/23 08:00 10/12/23 08:15
Calcium Polycarbophil 625 Mg Tablet PO 11/09/23 07:59 625 mg
DAILY ELOISE Administration
Cholecalciferol 125 mcg 10/12/23 08:00 10/12/23 08:15
Cholecalciferol (Vitamin D3) 125 Mcg Tablet (5,000 Units) PO 11/09/23 07:59 125 mcg
DAILY ELOISE Administration
Enoxaparin Sodium 40 mg 10/12/23 18:00
Enoxaparin Sodium 40 Mg/0.4 Ml Syringe SC 11/09/23 17:59
QPM ELOISE
Escitalopram Oxalate 20 mg 10/12/23 08:00 10/12/23 08:15
Escitalopram 20 Mg Tablet PO 11/09/23 07:59 20 mg
DAILY ELOISE Administration
Gabapentin 900 mg 10/11/23 21:00 10/12/23 08:15
Gabapentin 300 Mg Capsule PO 11/08/23 20:59 900 mg
BID ELOISE Administration
Sodium Chloride 1,000 mls @ 125 mls/hr 10/11/23 19:54 10/12/23 04:03
Nss IV 1,000 mls
.Q8H ELOISE Administration
Lacosamide 50 mg 10/12/23 08:00 10/12/23 08:11
Lacosamide (10 Mg/Ml) 200 Mg/20 Ml Vial IV 10/26/23 07:59 50 mg
Q12H ELOISE Administration
Levetiracetam 1,500 mg 10/12/23 08:00 10/12/23 08:17
Levetiracetam 500 Mg Regular Release Tablet PO 11/09/23 07:59 1,500 mg
BID ELOISE Administration
Linaclotide 145 mcg 10/11/23 19:54
Linaclotide 145 Mcg Capsule PO 11/08/23 19:53
DAILYPRN PRN
constipation
Lorazepam 1 mg 10/11/23 19:54
Lorazepam 2 Mg/Ml Vial IV 11/08/23 19:53
Q4HPRN PRN
seizure activity
Losartan Potassium 100 mg 10/12/23 08:00 10/12/23 08:17
Losartan 100 Mg Tablet PO 11/09/23 07:59 100 mg
DAILY ELOISE Administration
Magnesium 252 mg 10/11/23 22:00 10/11/23 21:10
Magnesium Lactate 84 Mg Tablet PO 11/08/23 21:59 252 mg
HS ELOISE Administration
Methimazole 5 mg 10/12/23 08:00 10/12/23 08:22
Methimazole 5 Mg Tablet PO 11/09/23 07:59 5 mg
[id number]@0800 LEOISE Administration
Metoprolol Succinate 25 mg 10/12/23 08:00 10/12/23 08:17
Metoprolol 25 Mg Extended Release Tablet PO 11/09/23 07:59 25 mg
DAILY ELOISE Administration
Multivitamins Therapeutic 1 tablet 10/12/23 08:00 10/12/23 08:17
Multivitamin Tablet PO 11/09/23 07:59 1 tablet
DAILY ELOISE Administration
Ondansetron HCl 4 mg 10/11/23 19:54
Ondansetron 4 Mg/2 Ml Vial IV 11/08/23 19:53
Q6HPRN PRN
nausea and vomiting
Polyethylene Glycol 17 grams 10/11/23 19:54
Polyethylene Glycol Powder 17 Grams Packet PO 11/08/23 19:53
DAILYPRN PRN
constipation
Rosuvastatin Calcium 5 mg 10/12/23 08:00 10/12/23 08:15
Rosuvastatin (Crestor) 5 Mg Tablet PO 11/09/23 07:59 5 mg
DAILY ELOISE Administration
Senna/Docusate Sodium 1 tablet 10/11/23 19:54
Docusate W/Senna (Thao-Colace) Tablet PO 11/08/23 19:53
BIDPRN PRN
constipation
Sodium Chloride 0 flush 10/11/23 20:00
Sodium Chloride 0.9% (Flush) Syringe IV 11/08/23 19:59
PER PROTOCOL ELOISE
Sodium Chloride 0.5 ml 10/11/23 19:54
Nss (Pf) 10 Ml Vial For Ativan 1 Mg Dose IV 11/08/23 19:53
Q4HPRN PRN
IV LORAZEPAM DILUTION
Temazepam 30 mg 10/11/23 22:00 10/11/23 21:10
Temazepam 15 Mg Capsule PO 11/08/23 21:59 30 mg
HS ELOISE Administration
Home Medications
�Medication �Instructions �Recorded
amlodipine 10 mg tablet 10 mg PO DAILY Blood pressure 05/18/18
gabapentin 600 mg tablet 1,200 mg PO BID Seizures 05/18/18
methimazole 5 mg tablet 5 mg PO SUTUTHSA Thyroid 05/18/18
temazepam 30 mg capsule 30 mg PO HS Sleep 05/18/18
metoprolol succinate 25 mg 25 mg PO DAILY Heart Failure 02/10/22
tablet,extended release 24 hr
(Toprol XL)
escitalopram oxalate 20 mg tablet 20 mg PO DAILY Depression 03/31/22
losartan 100 mg tablet 100 mg PO DAILY Blood Pressure 03/31/22
linaclotide 145 mcg capsule 145 mcg PO DAILYPRN PRN 09/26/23
(Linzess) constipation
rosuvastatin 5 mg tablet 5 mg PO DAILY High Cholesterol 09/26/23
levetiracetam 750 mg tablet 1,500 mg (2 x 750 mg) PO BID #120 09/28/23
tabs
abatacept 125 mg/mL subcutaneous 125 mg SC BURROWS 10/11/23
syringe (Orencia)
cholecalciferol (vitamin D3) 125 125 mcg PO DAILY 10/11/23
mcg (5,000 unit) tablet (Vitamin
D3)
ibuprofen 200 mg tablet 800 mg PO Q8HPRN PRN mild pain 10/11/23
magnesium oxide 1,200 mg PO HS 10/11/23
methylcellulose (laxative) 500 mg 500 mg PO DAILY 10/11/23
tablet (Citrucel)
omega [id number] oil 1,200 mg 1 cap PO DAILY 10/11/23
(144 mg-216 mg) capsule (Fish Oil)
therapeutic multivitamin 1 tab PO DAILY 10/11/23

Documented by User: Pipe Wetzel MD 10/16/23 09:03
Consultation - Neurology 4
-
CONSULTING PHYSICIAN: Pipe Wetzel MD
REFERRING PHYSICIAN: Hospitalists/Dr. Austin
DICTATED BY: ARAMIS Rojo
DATE/TIME OF REQUEST: 10/11/23
DATE/TIME OF CONSULTATION: 10/12/23
Reason for Consultation: Seizure
History of Present Illness:
This is a 73-year-old right-handed female who has presented to the hospital with report of breakthrough seizures. Patient was recently hospitalized at from 09/26/23-09/29/23 and evaluated by our Neurology service for breakthrough seizures.
From my previous evaluation on 09/26/23:
''This is a 73-year-old right-handed female who has presented to the hospital with report of seizures. Patient has a history of partial seizures, and trigeminal neuralgia and is followed as an outpatient by neurology Dr. Urban Flores at [facility]. She
has also been evaluated at by neurology several times in the past.
From previous evaluation by Dr. Krishna on 03/02/20:
'Patient was evaluated by this inpatient Hospital neurology consult service in January 2017 at which time she was experiencing episodic changes in mental status. Associated symptoms at that time included tinnitus, a sense of being pulled from her
own body, and aphasia. Episodes lasted less than 1 minute at that time. The episodes were similar to when she had utilized tramadol. EEG testing at that time was unremarkable. Patient was placed on Levetiracetam at that time. In 2018, the patient
was evaluated in inpatient neurologic consultation and instructed to discontinue oxcarbazepine and to increase her dose of gabapentin due to discovery of hyponatremia.
Patient returned to this hospital with recurrent episodes of changes in mental status. Started 2 days ago with worsening because more frequent since 1700 1 day ago, unable to breathe. Is having bladder incontinence, no tongue biting, or bowel
incontinence. Continued and on-going symptoms of mental status change. No known modifying factors.
Patient has a long-standing history of multiple sclerosis diagnosed approximately in 2006 and followed routinely by an outside neurologist (Dr. Urban Flores). Patient is described as having chronic trigeminal neuralgia on the right and left sides for
which she is utilized both oxcarbazepine and gabapentin, as described. According to records, the patient has used valproic acid previously. Patient is described in records as being noncompliant with glatiramer acetate as well as Teriflunomide. The
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 Changed to Methotrexate since discontinuance of rituximab.
According to records, the patient switched from sertraline to escitalopram as of November 2019. Started Tofacitinib 6 weeks ago for rheumatoid arthritis.'
Patient reports that since 2019 she has been off of DMT for MS. She reports chronic right foot drop starting a few years ago and she ambulates with a cane at baseline. She also notes 1-2 years of issues with slurred speech primarily in the evening,
BUE weakness with activities like brushing/flossing her teeth, and swallowing difficulty/feeling like food gets stuck in her throat. She notes intermittent diplopia starting around 2009, mostly with lateral gaze. She denies noticing any eyelid
drooping. She reports being tested for myasthenia antibodies about 10 years ago and they were negative.
Patient reports that her last seizure was in February 2022. She has been taking Keppra 1000mg for years now and denies missing any doses. Last night (09/25/23), patient reports she was in her usual state when suddenly while lying in bed watching TV
she developed a diffuse 'heavy body' sensation that she gets before her typical seizures. She then reports that her body became rigid, she could hear/understand speech but was unable to verbally respond, and she was incontinent of urine. She denies
losing consciousness or biting her tongue. She proceeded to have 5 episodes like this lasting about 1 minute each, followed by feeling lethargic. She reports developing a right-sided headache following these events. On arrival in the ER she was
witnessed to have another event and received an additional Keppra 1000mg IV and lorazepam. CT head was obtained and is negative for any acute abnormalities. WBC is 12.1, patient is afebrile. Currently, patient reports feeling tired with some
increased BLE weakness compared to baseline. She reports her chronic intermittent diplopia, difficulty swallowing, and right foot drop. She denies any vision loss, dizziness, speech difficulty, numbness, chest pain, palpitations, and shortness of
breath. She denies any recent fever or illness but she does note dysuria. Urinalysis is suggestive of possible UTI.''
EEG on 09/26/23 was negative for seizure. Urine culture was positive for E. Coli and she completed a course of Augmentin. Her home Keppra 1000mg BID was increased to 1500mg BID prior to discharge. Nayzilam was sent to her outpatient pharmacy prior
to discharge, she reports it was supposed to arrive at her pharmacy today. Patient reports that she followed up with her outpatient Neurology Dr. Urban Flores last week, who continued her on Keppra 1500mg BID, referred her to see an epilepsy
specialist, and also ordered MRIs of her brain, cervical, and thoracic spine. Patient reports that since hospital discharge, she has noted an increase in word-finding difficulty and her gait has been more ataxic. Patient reports that three days ago
on 10/09/23 she was at [facility] and suddenly felt severely off-balance and needed assistance to get back to her car. Later that night, she reports having chills and a fever of 103F. Her fever resolved but she notes feeling more fatigued since then. She
denies any cold symptoms, dysuria, urinary frequency, or sick exposures. Then yesterday (10/11/23), she note that around 1500 she went into the bathroom to wash her hands and developed her seizure aura which she describes as a dizzy sensation and
entire body extreme weakness. She had to lower herself to the floor, then persisted to have multiple seizures. She reports they were similar to her usual seizure, no loss of consciousness but she cannot speak, her body stiffens, she is incontinent
of urine, and her whole body is tremulous. Her notes that the seizure lasted 30-40 seconds before resolving for a couple of minutes, but then kept recurring about 15 times over a 30 minute period. On arrival in the ER she received lorazepam
1mg, Keppra 1500mg, and Vimpat 50mg IV x1 with relief of her seizures. Today (10/12/23), she reports still feeling extreme fatigue and BLE weakness R>L. She denies any headache, dizziness, vision changes (chronic intermittent diplopia), speech/swallow
difficulty, numbness, chest pain, palpitations, and shortness of breath. She denies missing any doses of her Keppra.
Past Medical History: Partial seizure disorder, multiple sclerosis, rheumatoid arthritis, chronic right neck pain/trigeminal neuralgia, HLD, migraines, chronic burping, depression, anxiety, insomnia, osteopenia, duodenitis, mesenteric vasculitis,
thyroid nodule, right foot drop, diplopia, chronic constipation, hiatal hernia, spastic pelvic floor syndrome
Past Surgical History: Partial thyroidectomy, L4/L5 discectomy/laminectomy, D&C, endometrial ablation, L knee arthroscopy, right hand finger surgery, sinus surgery, fibroma removed from lower lip, left bunionectomy
Family History: Reviewed and noncontributory.
Social History: Denies tobacco, alcohol, and illicit drug use.
Allergies: Adhesive tape, morphine, tramadol, povidone-iodine, soap, silver.
Home Medications: See below.
Review of Symptoms:
Patient denies any fever, headache, chest pain, shortness of breath, GI or symptoms.
�Per the HPI.�All systems are reviewed negative except above.
Physical Exam:
The patient is afebrile, abdomen is nondistended, breathing is unlabored, skin is warm and dry, no edema.
Neurologic Examination:
The patient is awake, alert and oriented x 3. She is able to follow commands and answer questions appropriately. There is no aphasia or dysarthria. On cranial nerve assessment, pupils are 3 mm bilateral, round and reactive to light and
accommodation. Visual haskins are full. Extraocular movements are intact. Facial sensations are intact and bilaterally symmetrical, there is no facial asymmetry. Hearing is intact bilaterally to normal conversation volume. Tongue palate and uvula are
midline. Sternocleidomastoid strengths are full bilaterally. Motor strengths are 5/5 bilateral upper, 2+/5 right lower, and 3-/5 left lower extremities on medical research [place] scale. R dorsi/plantarflexion 3/5. No involuntary movement noted.
Deep tendon reflexes are 2+ bilateral upper and lower extremities and Babinski is absent bilaterally. Sensations of touch, temperature and vibration are intact and bilaterally symmetrical. There was no extinction noted on double simultaneous
stimulation. Coordination is intact by finger to nose bilaterally.
Lab Results: See below.
Neuro Imaging:
1. CT Head 10/11/23: There are no focal or acute intracranial abnormalities. There is mild diffuse cortical and cerebellar atrophy.
Differentials for the patient's presentation include:
1. Breakthrough seizures; unclear cause, possibly viral illness given report of fever/chills this week.
2. Cannot exclude new structural brain abnormality contributing to recurrent seizures.
Patient has the following risk factors for their symptoms: Seizure disorder, MS, fever
Recommendations:
-Continue Keppra 1500mg PO BID.
-Continue Vimpat 50mg PO BID.
-MRI brain w/ and w/o contrast pending.
-Infection workup per primary team.
-Seizure precautions.
-PT/OT/ST evaluations.
-PRN Nayzilam at home for rescue therapy.
-Agree with referral as an outpatient to an epilepsy specialist.
-Will follow pending results.
Discussed patient care with: Dr. Wetzel, the patient, patient's spouse
Addendum: Neurology Attending Note:
CC: Seizure
HPI: 73-year-old right-handed female who has presented to the hospital with h/o MS for breakthrough seizures. Patient was recently hospitalized at from 09/26/23-09/29/23 and evaluated for breakthrough seizures. She was treated for UTI. Discharged
home on Keppra 1500 mg BID.
Readmitted with seizures and placed on Vimpat 50 mg BID
Exam: A,A, O x 4. Speech fluent. CN Nerve exam Non focal. Motor exam WNL Reflexes+. Gait WNL
A/P: Refractory Epilepsy
MS
PLAN: Keppra 1500mg BID
Vimpat 50 mg BID
--- NOTE | 2023-10-12 10:39 | CM ---
Patient seen bedside with , Saji, initial assessment completed. Patient recognized from previous admission. Patient lives with spouse in a multiple story home, one step to enter. Patient is current with [facility], has a cane at home. Patient
denies SNF history. Patient confirms PCP Pita Ordonez, pharmacy [facility], confirms prescription coverage. Patient denies any needs from CM at this time. CM will continue to follow for all discharge planning needs.
[facility]
[2023-10-12 11:10] LABS: Urine Albumin Negative (Neg - Trace); Urine Bilirubin Negative (Negative); Urine Character Clear (Clear); Urine Color Yellow; Urine Glucose Negative (Negative); Urine Ketone Negative (Negative); Urine Leukocyte Negative (Negative); Urine Nitrite Negative (Negative); Urine Occult Blood Negative (Negative); Urine Urobilinogen Negative (Neg - 1+)
--- NOTE | 2023-10-12 11:16 | W.PN.HOSP.TC ---
Today's Communication/Plan
-
see bold
Assessment / Plan
Assessment / Plan
Gen: NAD, AAOx3.
Eyes: EOMI, PERRLA, no scleral icterus.
Neck: supple.
CV: remains RRR, +S1/S2, no m/r/g.
Resp: remains CTAB, no rales, wheezes, or rhonchi.
Abd: +BS, soft, NT, ND
Skin: No rashes.
Neuro: CN 2-12 intact, 3/5 strength B/L LEs
Psych: Normal mood and affect.
Acute seizure activity:
-Underlying multiple sclerosis seizure disorder
-Continue Keppra
-Continue Vimpat 50 mg twice daily
-check EEG/MRI brain
-c/s neurology
-Ativan PRN
AG metabolic acidosis:
-lactic acid normal
-improving with IVFs
Other problems:
HLD: cont statin
Hyperthyroidism: TSH normal, continue methimazole
Trigeminal neuralgia: cont Neurontin
Essential hypertension: cont Norvasc/Losartan/Toprol XL
DNR/Lovenox
Anticipated Discharge: Within 24 hours
Subjective/Interval History
-
Date of Service: October 12, 2023
Objective Data
-
Labs:
Laboratory Results
10/12/23
06:35
WBC 8.0
Hgb 10.0 L
Hct 31.3 L
Plt Count 230 D
Sodium 144
Potassium 4.5
Chloride 111 H
Carbon Dioxide 21 L
BUN 13
Creatinine 0.8
Glucose 81
Calcium 9.0 D
Vital Signs:
Vital Signs
Temp Pulse Resp BP Pulse Ox
97.8 F 60 14 114/45 100
10/12/23 07:10 10/12/23 08:17 10/12/23 07:10 10/12/23 08:17 10/12/23 07:10
I&O
10/11/23 10/12/23 10/13/23
06:59 06:59 06:59
Intake Total 120 / 120
Balance 120 / 120
--- NOTE | 2023-10-12 15:37 | EEG.RPT ---
Electroencephalogram Report
Recording
Date of EE10/12/23
Length of EEG recordin mins
Done with Video Recording: Yes
Patient Status: Inpatient
Recording Conditions: Awake
Hyperventilation Performed: No
Photic Stimulation Performed: Yes
Report
METHODS
A 21 channel digitized electroencephalogram was performed at [facility]. The 10/20 international system of electrode placement was used. In addition to EEG, the patient was monitored for EKG. The duration of the recording was 29 minutes.
BACKGROUND
During the awake state, with the eyes closed, the background consisted of a normal amplitude, 11 Hertz posterior reactive rhythm that attenuated appropriately with eye opening. Beta activity was distributed diffusely with an anterior predominance.
There was a normal anterior-posterior voltage gradient. With eye opening the background activity changed to a low voltage mixture of alpha, beta, and occasional theta range frequencies. There were no significant asymmetries of background activity
noted.
HYPERVENTILATION
Hyperventilation was not performed.
PHOTIC STIMULATION
Photic stimulation using a step-aponte increase in photic frequency varying from 1-31 Hertz resulted in no driving responses but no appearance of abnormal activity.
ABNORMAL EEG ACTIVITY
None
CLINICAL EVENTS
None
INTERPRETATION AND CLINICAL CORRELATION
This EEG is normal during the awake state as well as during the activation procedures of hyperventilation and photic stimulation. No seizures were noted during the recording. A normal EEG, in itself, does not rule out a diagnosis of epilepsy. If
clinical suspicion for seizure persists, a sleep-deprived and/or prolonged recording may be warranted.
[2023-10-12 15:52] VITALS: BP 144/53
--- NOTE | 2023-10-12 16:03 | PTOTSP ---
WRAPPER STITCHER Evaluation
Quick Aphasia Battery Form 1 score = 9.41/10.00 which is within functional limits. Motor speech 100% intelligible to unfamiliar listener. Provided education about outpatient resources (given report of word finding difficulty and worsened
imprecision of articulation over several months; history of multiple sclerosis and seizures). Patient declined outpatient evaluation at this time.
[2023-10-12] MEDS: LOVENOX 40 MG SC (18:05)
[2023-10-12] MEDS: MAG-TAB SR 252 MG PO (21:40)
[2023-10-12] MEDS: RESTORIL 30 MG PO (21:40)
[2023-10-12 23:09] VITALS: BP 115/50
[2023-10-13] MEDS: NSS 1000 IV (02:28)
[2023-10-13 03:49] VITALS: BP 119/48
[2023-10-13 07:00] VITALS: BP 126/52
[2023-10-13] MEDS: TOPROL XL PO (08:57)
[2023-10-13] MEDS: VIMPAT 50 MG IV (09:03)
[2023-10-13] MEDS: KEPPRA 1500 MG PO (09:04)
[2023-10-13] MEDS: NEURONTIN 900 MG PO (09:04)
[2023-10-13] MEDS: NORVASC 10 MG PO (09:05)
[2023-10-13] MEDS: THERAGRAN 1 TABLET PO (09:05)
[2023-10-13] MEDS: COZAAR 100 MG PO (09:06)
[2023-10-13] MEDS: CRESTOR 5 MG PO (09:07)
[2023-10-13] MEDS: FIBERCON 625 MG PO (09:07)
[2023-10-13] MEDS: VITAMIN D3 (cholecalciferol) 125 MCG PO (09:08)
[2023-10-13] MEDS: LEXAPRO 20 MG PO (09:09)
[2023-10-13 11:00] VITALS: BP 147/58
[2023-10-13 11:10] VITALS: BP 139/68; O2SAT 97
[2023-10-13 11:11] VITALS: BP 139/65; PULSE 55; O2SAT 97
--- NOTE | 2023-10-13 11:46 | CM ---
Patient seen bedside, reports no needs to CM at this time. CM [facility] on [facility] discharge status as patient current with services. CM will continue to follow for all discharge planning needs.
Plan; home with family, [facility].
--- NOTE | 2023-10-13 12:36 | W.PN.HOSP.TC ---
Addendum entered and electronically signed by Bernardo Austin MD 10/13/23 14:22:
Case discussed with neuro. patient is medically cleared for discharge on her current AED medication regiment which includes Keppra by mouth 1500 mg twice daily and the new medication Vimpat 50 mg by mouth twice daily.
Total time spent on d/c = 37 min. This included today's physical exam, progress note, review of laboratory and diagnostic data, preparation of discharge documents and prescriptions, and discussions about the pt's hospital course and discharge plan
with the patient and other medical illustrator involved in the patient's care.
Original Note:
Today's Communication/Plan
-
will discuss plan with neuro
Assessment / Plan
Assessment / Plan
Gen: NAD, AAOx3.
Eyes: EOMI, PERRLA, no scleral icterus.
Neck: supple.
CV: continues to remain RRR, +S1/S2, no m/r/g.
Resp: continues to remain CTAB, no rales, wheezes, or rhonchi.
Abd: +BS, soft, NT, ND
Skin: No rashes.
Neuro: remains CN 2-12 intact, 3/5 strength B/L LEs
Psych: tearful
MRI brain w/wo: No acute intracranial abnormality noted, specifically no identifiable seizure focus. Mild global parenchymal volume loss with sequelae of mild/moderate small vessel ischemic disease.
EEG: This EEG is normal during the awake state as well as during the activation procedures of hyperventilation and photic stimulation. No seizures were noted during the recording.
Acute seizure activity:
-Underlying multiple sclerosis seizure disorder
-Continue Keppra
-Continue Vimpat 50 mg twice daily
-MRI brain above and unremarkable
-EEG above and without seizure activity
-neurology following
-Ativan PRN
AG metabolic acidosis:
-lactic acid normal
-improving with IVFs
Other problems:
HLD: cont statin
Hyperthyroidism: TSH normal, continue methimazole
Trigeminal neuralgia: cont Neurontin
Essential hypertension: cont Norvasc/Losartan/Toprol XL
DNR/Lovenox
Anticipated Discharge: Today
Subjective/Interval History
-
Date of Service: October 13, 2023
No seizure activity since I rounded yesterday. No new complaints.
Objective Data
-
Vital Signs:
Vital Signs
Temp Pulse Resp BP Pulse Ox
97.6 F 56 18 147/58 97
10/13/23 11:00 10/13/23 11:00 10/13/23 11:00 10/13/23 11:00 10/13/23 11:00
I&O
10/12/23 10/13/23 10/14/23
06:59 06:59 06:59
Intake Total 120 / 120 1560 / 1560
Output Total 400 / 400
Balance 120 / 120 1160 / 1160
[2023-10-13 13:32] LABS: Hematocrit 37.4 % (37.0-47.0); Hemoglobin 12.2 g/dL (12.0-16.0); Mean Corp Hgb Conc. 32.6 g/dL (33.0-37.0); Mean Corpuscular Hgb 25.8 pg (27.0-31.0); Mean Corpuscular Volume 79.1 fL (81.0-99.0); Mean Platelet Volume 9.7 fL (7.4-10.4); Platelet Count 270 10^3/uL (130-400); Red Blood Cell Count 4.73 10^6/uL (4.20-5.40); Red Cell Dist. Width 13.4 % (11.5-14.5); White Blood Cell Count 8.4 10^3/uL (4.8-10.8)
[2023-10-13 13:47] LABS: Blood Urea Nitrogen 11 mg/dl (7-17); Calcium 10.4 mg/dl (8.4-10.2); Carbon Dioxide 25 mmol/L (22-30); Chloride 104 mmol/L (98-107); Estimated Creatinine Clearance 64 ml/min; Glucose 99 mg/dl (70-99); Potassium 4.5 mmol/L (3.5-5.1); Sodium 139 mmol/L (135-145); eGFR > 60.00
--- NOTE | 2023-10-13 15:47 | W.DCSUMMARY ---
Discharge Summary
Discharge Data
Date of Admission: 10/11/23
Date of Discharge: 10/13/23
-
Pending Results: No
Hospital Course
Primary diagnoses:
Seizure disorder with acute seizure activity
Anion gap metabolic acidosis
Secondary diagnoses:
Multiple sclerosis
Hyperlipidemia
Hyperthyroidism
Trigeminal neuralgia
Essential hypertension
Consultants:
Neurology
Imaging:
MRI brain w/wo: No acute intracranial abnormality noted, specifically no identifiable seizure focus. Mild global parenchymal volume loss with sequelae of mild/moderate small vessel ischemic disease.
EEG: This EEG is normal during the awake state as well as during the activation procedures of hyperventilation and photic stimulation. No seizures were noted during the recording.
73-year-old female who presented with chief complaint of seizure activity as outlined in the H&P done on admission. Hospital course by problem list:
Acute seizure activity: The patient seizures were reportedly due to her underlying multiple sclerosis. She was on Keppra prior to admission. Vimpat was added. MRI of the brain and EEG were unremarkable as above. Her seizures resolved. She was
medically cleared for discharge by neurology.
AG metabolic acidosis: The patient's lactic acid was normal. She was given IV fluids and her anion gap metabolic acidosis resolved.
Discharge Plan
-
Patient Disposition: Home (Routine Discharge)
Discharge Diagnosis/Procedures: seizures
Condition: Good
Diet: Low Cholesterol
Activity: With assistance
Driving Restrictions: No driving
Referrals:
Pita Ordonez MD [Family Provider] - in less than 1 week
Prescriptions:
New
lacosamide [Vimpat] 50 mg tablet
50 mg PO BID Qty: 60 0RF
Continued
amlodipine 10 MG tablet
10 mg PO DAILY
methimazole 5 MG tablet
5 mg PO SUTUTHSA
gabapentin 600 MG tablet
1,200 mg PO BID
temazepam 30 MG capsule
30 mg PO HS
metoprolol succinate [Toprol XL] 25 mg Tablet Extended Release 24 Hr
25 mg PO DAILY
escitalopram oxalate 20 mg tablet
20 mg PO DAILY
losartan 100 mg tablet
100 mg PO DAILY
rosuvastatin 5 mg Tablet
5 mg PO DAILY
Linzess 145 mcg Capsule
145 mcg PO DAILYPRN PRN (Reason: constipation)
levetiracetam 750 mg tablet
1,500 mg PO BID Qty: 120 0RF
therapeutic multivitamin Tablet
1 tab PO DAILY
Citrucel 500 mg Tablet
500 mg PO DAILY
ibuprofen 200 mg Tablet
800 mg PO Q8HPRN PRN (Reason: mild pain)
cholecalciferol (vitamin D3) [Vitamin D3] 125 mcg (5,000 unit) Tablet
125 mcg PO DAILY
omega 1-jzy-bns-fish oil [Fish Oil] 1,200 (144-216) mg Capsule
1 cap PO DAILY
Orencia 125 mg/mL Syringe
125 mg SC BURROWS
magnesium oxide 200 mg magnesium Tablet,Chewable
1,200 mg PO HS
Discharge Orders:
Discharge Patient (As Directed); Ordered 10/13/23
Ordered By: Bernardo Austin
Discharge Date and Time
Print Language: BELIZEAN
[2023-10-13 15:59] VITALS: BP 124/63
== END 2023-10-13 18:50 | disposition home or self-care (01) | DRG 59 ==
LOC: 4 WEST ACU 19:23
PROVIDERS: Nurse Practitioner; Registered Nurse Critical Care Medicine; ADMITTING PHYSICIAN Internal Medicine; CONSULT PHYSICIAN Psychiatry & Neurology Neurology; EMERGENCY PHYSICIAN Emergency Medicine; FAMILY PHYSICIAN Internal Medicine
DX: G35 Multiple sclerosis (principal); E87.20 Acidosis, unspecified; E05.90 Thyrotoxicosis, unspecified without thyrotoxic crisis or storm; Z66 Do not resuscitate; I10 Essential (primary) hypertension; G50.0 Trigeminal neuralgia; E78.00 Pure hypercholesterolemia, unspecified; R56.9 Unspecified convulsions
CPT/HCPCS: 70553; 80048; 80053; 81003; 83605; 84443; 85025; 85027; 92523; 93005; 95816; 96361; 96374; 96375; 97163; 97166; 97535; 99285; A9575; C9254

== ENCOUNTER 2023-11-13 20:32 | Inpatient (IN) | payer OTHER, SELFPAY ==
[2023-11-13 17:56] VITALS: BP 112/98
--- NOTE | 2023-11-13 18:14 | ED.GENMED ---
History of Present Illness
General
Chief Complaint: Seizure
Source: patient and spouse
Exam Limitations: none
Time Seen by Provider: 11/13/23 17:58
History of Present Illness
History of Present Illness:
This is a 73 year old female that comes in by EMS with c/o seizures. States that she was just discharged from [facility] 2 days ago as she has a history of seizures. States that she started to have seizures as soon as she got home that
night. States that she is on Keppra 750mg 2 tabs in the morning and at night. States that she is also on Gabapentin 2 tabs in the morning and 2 at night. States that she was on Vimpat but is not taking any longer. Today she awoke and she felt she
couldn't move her head or she started to feel confused and would go into a seizure. States that this just kept coming and has had about 16 seizures today. states that they last about 30-45 seconds. Yesterday she felt she couldn't see well as
there were things moving around. Told that EMS gave her Ativan 4mg and patient was also given Requip at home. States that she has chest pain, SOB yesterday, nausea, diarrhea, headache and dizziness. Denies any fever, chills, abd pain, vomiting,
urinary burning.
Past History
Past History
ED Past Medical History: HTN, Hypercholesterolemia, Seizures, Psychiatric (Depression), Other (Multiple sclerosis, chronic right neck pain/trigeminal neuralgia, migraine headaches, chronic burping, RA, osteopenia, duodenitis, mesenteric vasculitis),
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 Gastritis, ) and Other
ED Past Surgical History: Gynecological (D&C, endometrial ablation 1997), Orthopedic (Laminectomy 1990, 1993; left knee arthroscopy, Bunion removed) and Other (Partial thyroidectomy right lobe for removal of thyroid nodule)
Patient has exhibited threatening behavior?: No
PSI?: No
Social History
Tobacco: Non-smoker
Alcohol: Occasional
Drug: None
Personal:
Living: with family
Employment: Disabled
Family History
Family History: Other (reviewed and Noncontributory)
Review of Systems
Review of Systems
All Other Systems: ROS reviewed and negative except as documented in HPI and ROS
Constitutional: Reports no symptoms; Denies fever or chills
EENT: Reports no symptoms
Respiratory: Reports trouble breathing (Yesterday); Denies cough
Cardiac: Reports chest pain
ABD/GI: Reports nausea and diarrhea; Denies abdominal pain or vomiting
: Reports no symptoms; Denies dysuria, frequency or urgency
Musculoskeletal: Reports no symptoms
Skin: Reports no symptoms
Neurological: Reports dizzy and headache
Psychiatric: Reports no symptoms
Phy Exam
General Physical Exam
General Presentation: no apparent distress
General age: appears stated age
General Skin: warm and dry
General Habitus: elderly
General Mental: alert
General Hydration: dry mucous membranes
ENT Exam
ENT Exam: TM's normal, pharynx normal, neck supple and other (Negative for any bites on the tongue noted)
Eye Exam
Eye Exam: EOMI
Cardiovascular Exam
Cardiovascular Exam: regular rate/rhythm, no edema, no murmur and normal peripheral pulses
Pulmonary Exam
Pulmonary Exam: lungs clear, no respiratory distress, no rales, chest non tender, no crackles, no rhonchi, no wheezing and no cough
Gastrointestinal Exam
Gastrointestinal Exam: normal bowel sounds, soft, no organomegaly, no pulsatile mass, non distended and tender (Slight left lower tenderness (patient c/o constipation))
Musculoskeletal Exam
Musculoskeletal Exam: full ROM and no edema
Skin Exam
Skin Exam: normal color, warm/dry, no rash and no petechia
Psychiatric Exam
Psychiatric Exam: normal mood/affect
Course
Orders/Labs/Results
Orders:
Orders
11/13/23 Breakfast
Cholesterol Lowering
At Your Request: Limited Participation
Cholesterol Lowering: Sodium, 2 Gram
11/13/23 18:01
Electrocardiogram (*1) Urgent
Reason for Study: Bradycardia / Tachycardia
EKG- Treatment ONCE
11/13/23 18:07
Basic Metabolic Panel Urgent
Complete Blood Count/With Diff Urgent
Keppra (Levetiracetam) [S] Urgent
TSH Reflex To Free T4 Urgent
Comment: ADD ON
11/13/23 18:14
Add On- LAB Urgent
Tests Added?: TSH reflex to T4
Electrocardiogram (*1) Urgent
Reason for Study: Chest Pain
EKG- Treatment ONCE
11/13/23 18:15
Troponin I Urgent
11/13/23 18:22
CT Head W/o Iv Contrast Urgent
Comment:
Reason For Exam: Visual disturbance, Seizures
0.9% Sodium Chloride 1000 ml [Nss] 1,000 ml IV BOLUS
11/13/23 18:23
Acetaminophen 1000MG/100Ml [Ofirmev] 1,000 mg in 100 ml IV ONCE
Acetaminophen IV Indication:: ED Narcotic Naive Pt-ONCE
11/13/23 19:21
Admit/Transfer Patient As Directed
Co-Sign Provider:
Level of Care: Inpatient admission
Assign to:: Telemetry
Physician / Group: carolyn
Diagnosis: seizure
Reason for Telemetry: Other
Other Reason for Telemetry: seizure
Date to Stop Telemetry: 11/15/23
Time to Stop Telemetry: 11:00
Reason for Hospitalization: seizure
Expected length of stay greater than two midnights?: Yes
ELOS- Estimated Length of Stay in days: 3
I certify the patient meets the requirements for IP care: Yes
PRN Pain Medication Management As Directed
May give lesser potent ordered pain med per pt: Yes
preference::
Protocol:: Medication orders for pain may be administered in a
manner that supports deferring to patient preference
when the pt is:
- Requesting an ordered lesser potent pain medication.
Least to most potent pain medications are defined
as: acetaminophen < NSAID < tramadol < opioids
(morphine, oxycodone, hydromorphone).
- Requesting a lesser dose of the same medication IF
ORDERED.
- Requesting a less intrusive route of administration
if both routes are prescribed by the provider (PO <
IV).
11/13/23 19:22
Code Status As Directed
Resuscitation Status: Full Code
11/13/23 21:27
Acetaminophen [Tylenol] 650 mg PO Q4HPRN PRN
Bisacodyl [Dulcolax] 10 mg RECTAL [id number] PRN
Docusate W/Senna [Senokot-S] 1 tablet PO BIDPRN PRN
Polyethylene Glycol Powder [Miralax] 17 grams PO DAILYPRN PRN
methylcellulose (laxative) [Citrucel] 500 mg PO BID
11/13/23 21:27
NEUROLOGY CONSULT Routine
Consulting Provider: Tamika Masters
Was physician already notified: No
Reason for consult: seizure
Activity As Directed
Activity Level: As Tolerated
Precautions As Directed
Type of Precautions: Seizure
Vital Signs As Directed
Frequency: Per unit guidelines
DX Deep Vein Thrombosis Video Routine
11/13/23 21:39
Temazepam [Restoril] 30 mg PO HSPRN PRN
11/13/23 22:00
Gabapentin [Neurontin] 1,200 mg PO BID
Levetiracetam [Keppra] 750 mg PO BID
11/14/23 06:00
Basic Metabolic Panel IN AM
Complete Blood Count/No Diff IN AM
TSH IN AM
11/14/23 08:00
Amlodipine [Norvasc] 10 mg PO DAILY
Escitalopram Oxalate [Lexapro] 20 mg PO DAILY
Losartan [Cozaar] 100 mg PO DAILY
Methimazole [Tapazole] 5 mg PO SuTuThSa@0800
Metoprolol Xl [Toprol Xl] 25 mg PO DAILY
Rosuvastatin Calcium [Crestor] 5 mg PO DAILY
11/14/23 18:00
Enoxaparin Sodium [Lovenox] 40 mg SC QPM
11/15/23 06:00
Basic Metabolic Panel IN AM
Complete Blood Count/No Diff IN AM
11/15/23 11:00
DC Protocol for Telemetry ONCE
11/16/23 06:00
Basic Metabolic Panel IN AM
Complete Blood Count/No Diff IN AM
11/17/23 06:00
Basic Metabolic Panel IN AM
Complete Blood Count/No Diff IN AM
11/18/23 06:00
Complete Blood Count/No Diff IN AM
Abnormal Lab Results
11/13/23
18:07
MCV 78.0 L fL
(81.0-99.0)
MCH 25.5 L pg
(27.0-31.0)
MCHC 32.7 L g/dL
(33.0-37.0)
Absolute Monos (auto) 0.7 H 10^3/uL
(0.1-0.6)
Carbon Dioxide 20 L mmol/L
(22-30)
Glucose 141 H mg/dl
(70-99)
11/13/23 18:07
11/13/23 18:07
Anemia. Carbon dioxide slightly low. Hyperglycemia.
Vital Signs
Initial and Last Documented VS:
Initial Vital Signs
Temp Pulse Resp BP Pulse Ox
96.8 F L 57 18 112/98 98
11/13/23 17:56 11/13/23 17:56 11/13/23 17:56 11/13/23 17:56 11/13/23 17:56
Last Documented Vital Signs
Temp Pulse Resp BP Pulse Ox
96.8 F L 45 13 123/54 95
11/13/23 17:56 11/14/23 01:00 11/14/23 01:00 11/14/23 00:00 11/14/23 01:00
MDM/Problems Addressed
Differential Diagnosis Includes:
Seizures
MDM/Problems Addressed:
This is a 73 year old female that comes in with c/o seizures. States that she had 16 seizures today that last 30-45 second according to . Patient was given Ativan 4mg by EMS.
Explained to patient that she will have blood drawn and will be unable to sent patient home due to her extensive seizure activity today. Hospitalist notified about admission.
Chronic conditions affecting care: Neurological disorder (Seizures) and Other
Acute Exacerbation and/or Progression of Chronic Illness: Neurological disorder (Seizures)
*Pulse Oximetry
Patient hypoxic: no
*EKG
Interpreted by ED Provider?: Yes
Heart Rate: 55
Rate: bradycardiac
Rhythm: sinus
[place]: normal axis
Interval: normal interval
QRS Pattern: normal QRS
Ischemia: no ischemia
*Tree Deadener Interpretation
Rate: bradycardiac
Heart Rate: 55
Rhythm: sinus (Fran)
*Critical Care Note
Total Time (30-74mins, 75-104mins- exclusive of procedures): Not Applicable
ED Attending Note
-
Portions of this chart may have been created with voice recognition software.� Occasional wrong word or��sound alike� substitutions may have occurred due to the inherent limitations of voice recognition software.
Discharge Plan
Departure
Patient Disposition: Admit
Date of Disposition: 11/13/23
Time of Disposition: 18:32
Admit to: Telemetry
Presentation/result/management discussed w/ accepting MD/DO: Hospitalist
Patient with high blood pressure during this ER visit?: No
Covid-19: Not Applicable
Discharge Problem:
Seizure
Interventions
Interventions:
*Risk Screen - Suicide Last Done: 11/13/23 17:56
*General Assessment Last Done: 11/13/23 17:56
*Neglect/Abuse Screening Last Done: 11/13/23 17:56
ED- Cardiac Assessment Last Done: 11/13/23 18:02
ED- Neurological Assessment Last Done: 11/13/23 18:02
ED- Pulmonary Assessment Last Done: 11/13/23 18:02
[2023-11-13 18:16] LABS: % Basophils 0.5 % (0-2); % Eosinophils 1.7 % (0-6); % Immature Granulocytes 0.3 % (0-0.5); % Lymphocytes 35.3 % (20.5-51.1); % Monocytes 7.2 % (1.7-9.3); Absolute Basophils 0.1 10^3/uL (0-0.2); Absolute Eosinophils 0.2 10^3/uL (0-0.7); Absolute Lymphocytes 3.4 10^3/uL (1.2-3.4); Absolute Monocytes 0.7 10^3/uL (0.1-0.6); Absolute Neutrophils 5.3 10^3/uL (1.4-6.5); Hematocrit 39.8 % (37.0-47.0); Mean Corp Hgb Conc. 32.7 g/dL (33.0-37.0); Mean Corpuscular Hgb 25.5 pg (27.0-31.0); Mean Platelet Volume 9.5 fL (7.4-10.4); Nucleated Red Blood Cells % 0 %; Platelet Count 269 10^3/uL (130-400); Red Cell Dist. Width 13.3 % (11.5-14.5); White Blood Cell Count 9.6 10^3/uL (4.8-10.8)
[2023-11-13 18:30] LABS: Blood Urea Nitrogen 16 mg/dl (7-17); Calcium 10.2 mg/dl (8.4-10.2); Carbon Dioxide 20 mmol/L (22-30); Chloride 107 mmol/L (98-107); Glucose 141 mg/dl (70-99); Sodium 141 mmol/L (135-145); eGFR > 60.00
[2023-11-13 18:47] LABS: Troponin I < 0.012 ng/ml
--- NOTE | 2023-11-13 18:49 | HPS.HSE ---
Addendum entered and electronically signed by Hector Perez DO 11/13/23 20:34:
Patient seen and examined independently. Agree with findings and plan as set forth by ARAMIS Garcia.
Patient is a 73y F with PMH significant for ASCVD / CVA, hypertension, anxiety and recent seizure activity who presents to ED complaining of recurrent seizures. Patient was previously admitted here (09/25 - 09/27 and 10/10 - 10/12) with similar
symptoms. She was started on Keppra and Vimpat was added. Evaluation including imaging, EEG, etc was essentially unremarkable. After her last admission here, she was hospitalized at [place] for similar complaint. Full work-up was completed and was
reportedly similarly unrevealing. her Vimpat was discontinued and she was discharged to home. Today she had recurrence of her seizure activity. Seizures are described as episodes of staring into space and 'stiffening' of the extremities. Each
lasts for about 45 seconds before resolving. She has urinary incontinence at times with these episodes. Patient notes that she had 16 such episodes at home today - prompting evaluation in the ED.
Ass:
Seizure Activity
Anxiety / Depression
Migraine Headaches
Hyperthyroidism
Benign Hypertension
Rheumatoid Arthritis
History of MS
Trigeminal Neuralgia
Plan:
Admit for further evaluation and treatment.
Continue current Keppra dose for now. Level pending.
Neurology evaluation for additional recommendations / med changes / etc.
CT head done in the ED this evening is again unremarkable.
Continue other usual home medications.
Original Note:
Family Physician
-
Family Physician: Pita Ordonez
Chief Complaint
-
seizures
History of Present Illness
73 year old female with PMH for seizure, HTN, HLD, MS, RA, CVA, anxiety, depression, insomnia, migraine presented to us with seizures. patient was here in the beginning of October. work up was negative for seizures. she was discharged home on
Vimpat in addition to Keppra. States that she was just discharged from [facility] few days with seizure. all work up were negative. she was taken off of Vimpat. since the discharge, she had multiple seizure. today she has 16 episodes of
seizures, which lasted for 45 seconds. she tightens up and gets incontinence of urine. patient stated BUCHANAN. denied dizzy or syncopal episode. denied fever, chills, runny nose, congestion and cough.denied chest pain, sob. denied abdominal pain, n,v.
stated some diarrhea. denied dysuria or hematuria.
admitting for further management.
Medical History
Past Medical History
Past Medical History: Reports Other
Additional Past Medical History:
HTN
HLD
MS
RA
CVA
anxiety
depression
migraine
gastritis
uterine fibroids
right thyroid follicular neoplasm
Past Surgical History: Reports Other
Additional Past Surgical History:
fibroma removed from lower lip
partial thyroidectomy
knee surgery
finger surgery
Social History
Tobacco: Non-smoker
Alcohol: None
Drug: None
Personal:
Living: With Family
Family History
Family History: Not pertinent
Allergies / Home Medications
Allergies reflects when Allergies were last updated in [facility].
Home Medications with original date entered in [facility]
Allergy/Medication List:
Allergies
Allergy/AdvReac Type Severity Reaction Status Date / Time
adhesive tape [Adhesive Tape] Allergy Rash, Verified 10/11/23 15:54
Burning
morphine Allergy NAUSEA/VOMI Verified 10/11/23 15:54
TING
povidone-iodine Allergy Itching, Verified 10/11/23 15:54
[From Betadine] rash
silver Allergy Itching Verified 10/11/23 15:54
soap [From Betadine] Allergy Itching, Verified 10/11/23 15:54
rash
tramadol Allergy SEE BELOW Verified 10/11/23 15:54
Home Medications
amlodipine 10 mg tablet 10 mg PO DAILY Blood pressure 05/18/18
gabapentin 600 mg tablet 1,200 mg PO BID Seizures 05/18/18
methimazole 5 mg tablet 5 mg PO SUTUTHSA Thyroid 05/18/18
temazepam 30 mg capsule 30 mg PO HSPRN PRN sleep 05/18/18
metoprolol succinate 25 mg tablet,extended release 24 hr (Toprol XL) 25 mg PO DAILY Heart Failure 02/10/22
escitalopram oxalate 20 mg tablet 20 mg PO DAILY Depression 03/31/22
losartan 100 mg tablet 100 mg PO DAILY Blood Pressure 03/31/22
linaclotide 145 mcg capsule (Linzess) 145 mcg PO DAILYPRN PRN constipation 09/26/23
rosuvastatin 5 mg tablet 5 mg PO DAILY High Cholesterol 09/26/23
abatacept 125 mg/mL subcutaneous syringe (Orencia) 125 mg SC BURROWS 10/11/23
cholecalciferol (vitamin D3) 125 mcg (5,000 unit) tablet (Vitamin D3) 125 mcg PO DAILY 10/11/23
ibuprofen 200 mg tablet 800 mg PO Q8HPRN PRN mild pain 10/11/23
methylcellulose (laxative) 500 mg tablet (Citrucel) 500 mg PO BID 10/11/23
omega 3-dbf-mfh-fish oil 1,200 mg (144 mg-216 mg) capsule (Fish Oil) 1 cap PO DAILY 10/11/23
therapeutic multivitamin 1 tab PO DAILY 10/11/23
levetiracetam 750 mg tablet 750 mg PO BID 11/13/23
midazolam 5 mg/spray (0.1 mL) nasal spray (Nayzilam) 1 spray intranasal DAILYPRN PRN seizure 11/13/23
Review of Systems
-
Constitutional: Reports No Symptoms
EENT: Reports No Symptoms
Respiratory: Reports No Symptoms
Cardiac: Reports No Symptoms
Abdomen/GI: Reports No Symptoms
: Reports No Symptoms
Musculoskeletal: Reports No Symptoms
Skin: Reports No Symptoms
Neurological: Reports Headache
Endocrine: Reports No Symptoms
Hematologic/Lymphatic: Reports No Symptoms
Psych: Reports No Symptoms
Physical Exam
Vital Signs
Vital Signs
Temp Pulse Resp BP Pulse Ox
96.8 F L 57 18 112/98 98
11/13/23 17:56 11/13/23 17:56 11/13/23 17:56 11/13/23 17:56 11/13/23 17:56
Physical Exam
General: Well Developed, Well Nourished and No Apparent Distress
HEENT: NormoCephalic, Moist mucous membranes and Atraumatic
Respiratory: Clear
Cardiac: S1/S2 and Regular Rhythm; No Murmur or Rub
GI: Soft, Non Tender, Non Distended and Normal Bowel Sounds; No Organomegaly
Rectal: Deferred by Provider
Musculoskeletal: No Clubbing, No Cyanosis and No Edema
Skin: No Rash
Neuro: AO x 3 and Nonfocal/grossly intact
Laboratory Results
-
11/13/23 18:07
11/13/23 18:07
Laboratory Results
Total Bilirubin Cancelled 11/13/23 18:07
AST Cancelled 11/13/23 18:07
ALT Cancelled 11/13/23 18:07
Alkaline Phosphatase Cancelled 11/13/23 18:07
Troponin I < 0.012 ng/ml 11/13/23 18:15
Data Reviewed
-
Lab Data: Labs Reviewed by me
Impression/Plan
-
#seizure
-CT head pending
-Keppra level pending
-Keppra continued
-seizure precaution
-neurology consulted
#HLD: cont statin
#Hyperthyroidism: TSH normal, continue methimazole
#Trigeminal neuralgia: cont Neurontin
#Essential hypertension: cont Norvasc/Losartan/Toprol XL with hold parameter
#anxiety
-citalopram continued
#RA
-on orencia
#hxt of MS
-follows neurology as outpatient.
DNR/Lovenox
[2023-11-13] MEDS: NSS 1000 IV (19:08)
[2023-11-13] MEDS: OFIRMEV 100 IV (19:08)
[2023-11-13 19:10] VITALS: BP 113/57
[2023-11-13 21:19] VITALS: BP 112/84
[2023-11-13] MEDS: KEPPRA 750 MG PO (21:46)
[2023-11-13 22:00] VITALS: BP 125/62
[2023-11-13] MEDS: NEURONTIN 1200 MG PO (22:02)
[2023-11-13 22:36] VITALS: BP 119/58
[2023-11-13 23:00] VITALS: BP 124/54
[2023-11-14] VITALS (18 sets, daily range): BP systolic 115–142; BP diastolic 49–77; BMI 21.8
[2023-11-14] MEDS: ATIVAN 1 MG IV (05:38)
[2023-11-14 05:57] LABS: Hematocrit 34.5 % (37.0-47.0); Hemoglobin 11.4 g/dL (12.0-16.0); Mean Corpuscular Hgb 26.4 pg (27.0-31.0); Mean Corpuscular Volume 79.9 fL (81.0-99.0); Mean Platelet Volume 9.9 fL (7.4-10.4); Platelet Count 246 10^3/uL (130-400); Red Blood Cell Count 4.32 10^6/uL (4.20-5.40); Red Cell Dist. Width 13.5 % (11.5-14.5); White Blood Cell Count 10.8 10^3/uL (4.8-10.8)
[2023-11-14 06:19] LABS: Blood Urea Nitrogen 18 mg/dl (7-17); Calcium 9.8 mg/dl (8.4-10.2); Carbon Dioxide 22 mmol/L (22-30); Chloride 109 mmol/L (98-107); Estimated Creatinine Clearance 64 ml/min; Glucose 92 mg/dl (70-99); Potassium 4.4 mmol/L (3.5-5.1); Sodium 142 mmol/L (135-145); eGFR > 60.00
[2023-11-14 07:02] LABS: TSH 0.56 uIU/ml (0.47-4.68)
--- NOTE | 2023-11-14 08:44 | CON.NEURO ---
Consultation
Order
Date of Consultation: 11/14/23
Requesting Provider:
Reason for Consult: seizures
CC: seizures
HPI: This is a 73-year-old RH woman who presented to [facility] on November 13, 2023 for with recurrent spells.
She reports that her first seizure occurred 4 years ago, with subsequent seizures occurring at varying intervals. The frequency of seizures increased to daily episodes 3 weeks prior to the visit. During the seizures, she experiences shaking, an odd
feeling in her head, and involuntary bladder release. She remains fully conscious and can hear everything but is unable to speak during the seizures. The seizures typically last for 30 to 45 seconds, and she needs to sit down during the episodes.
Ms. Myers states that she does not take any medications for seizures. She has previously been prescribed Keppra and Vimpat, but they did not affect her seizures. She has been evaluated at [facility] with a continuous EEG, which did not
capture her seizures. Ms. Myers states that she was told to have nonepileptic seizures.
Prior AED include: Keppra, Vimpat
ER VS: 112/98, 57-40, 36.0C.
EKG: sinus chico, QTc Int : [address] head wo contrast(11/13/2023) moderate diffuse cortical and cerebellar atrophy
PDMP:Lacosamide 50 Mg�60 tabs filled in on 10/13/2023, Midazolan nasal spray 5 Mg�2 filled in on 11/01/2023, 10/10/2023, Temazepam 30 mg 90 capsules filled in on 09/06/2023, 05/22/2023, 02/20/2023.
Labs: Glucose�141, normal WBCs, sodium, creatinine, TSH
Brain MRI w/wo charlie(10/13/2023) scattered T2/FLAIR hyperintensities within the subcortical and periventricular white matter of the bilateral cerebral hemispheres which is nonspecific.
Routine EEG(10/12/2023) normal
Routine EEG(09/26/2023) normal
PMH: RRMS, trigeminal neuralgia, HTN, DLP, CHARLIE, MDD, LS DJD, OA, RA on Orencia, DLP, insomnia; hyperthyroidism, diverticulosis, vit D deficiency
PSH: L4-5 discectomy(1990, 1993), R TKA, partial thyroidectomy; endoscopic sinus surgery
SH: , ambulates with a cane
FH:cousin-lupus, brother, father-DM;
All:tramadol, povidone-iodine, morphine
ROS:Constitutional: Negative. Negative for chills, fever and unexpected weight change.
HENT: Negative for ear pain, hearing loss, tinnitus and trouble swallowing.
Eyes: Negative. Negative for photophobia, pain and visual disturbance.
Respiratory: Negative for cough, choking and shortness of breath.
Cardiovascular: Negative for chest pain, palpitations and leg swelling.
Gastrointestinal: positive for constipation
Endocrine: Negative. Negative for cold intolerance.
Genitourinary: Negative for dysuria, flank pain and urgency.
Musculoskeletal: Negative for back pain, gait problem, neck pain and neck stiffness.
Skin: Negative for rash.
Allergic/Immunologic: Negative. Negative for immunocompromised state.
Neurological: positive for recurrent spells, imbalance
Psychiatric/Behavioral: Negative for behavioral problems, confusion and hallucinations.
General: Well developed. In no acute distress.
Cardio: Regular rate and rhythm without murmur. Extremities are without cyanosis or edema.
Neuro:
Mental Status: Alert, oriented to person, place, and date. Normal attention and recall. Good fund of knowledge. Follows complex requests across the midline. Comprehension, naming, and repetition intact. Immediate recall 3/3.
Cranial Nerves: .Pupils are equally round and reactive to light. EOMs full. Visual haskins full to confrontation. No ptosis. No nystagmus. V1-V3 intact to light touch and pinprick bilaterally, symmetric. Face symmetric. Normal hearing AU. The
palate elevated well. SCMs and traps 5/5. Tongue midline. No dysarthria.
Motor: Normal bulk and tone. No pronator or arm drift. Strength 5/5 throughout. No clonus.
Reflexes: 2+ throughout the upper extremities and knees. Plantar responses flexor bilaterally.
Sensory: reduced vibration at the right toes, ankle
Coordination: No dysmetria or tremor.
Gait: deferred
No tongue laceration
Assessment and Plan:
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
II. Sinus bradycardia
III. History of RRMS
IV. CHARLIE
V. History of trigeminal neuralgia
-fall precautions
-Continue Lexapro 20mg QD
-Please check CK, ua, ua cx, mg
-Continue Gabapentin 1200 mg BID for TN
-Please obtain a copy of neurology notes from [facility].
I personally reviewed all radiology and labs along with past medical records pertinent to current medical problems. Total time spent in patient care is 60 minutes.
Thank you for allowing us to participate in the care of this patient. We will continue to follow. Please do not hesitate to contact us with any questions or concerns.
Subjective/Objective
Subjective Data
Date of Service: November 14, 2023
Objective Data
Vital Signs
Temp Pulse Resp BP Pulse Ox
36.0 C L 44 13 119/58 96
11/13/23 17:56 11/14/23 03:15 11/14/23 03:15 11/14/23 03:00 11/14/23 07:00
Lab Results
11/14/23 05:21
11/14/23 05:21
Sodium 142 mmol/L (135-145) 11/14/23 05:21
Potassium 4.4 mmol/L (3.5-5.1) 11/14/23 05:21
BUN 18 mg/dl (7-17) H 11/14/23 05:21
Glucose 92 mg/dl (70-99) 11/14/23 05:21
Calcium 9.8 mg/dl (8.4-10.2) 11/14/23 05:21
Patient Allergies
adhesive tape [Adhesive Tape] Allergy (Verified 10/11/23 15:54)
Rash, Burning
morphine Allergy (Verified 10/11/23 15:54)
NAUSEA/VOMITING
povidone-iodine [From Betadine] Allergy (Verified 10/11/23 15:54)
Itching, rash
silver Allergy (Verified 10/11/23 15:54)
Itching
soap [From Betadine] Allergy (Verified 10/11/23 15:54)
Itching, rash
tramadol Allergy (Verified 10/11/23 15:54)
SEE BELOW
Medications
-
Active Medications
Generic Name Dose Route Start Last Admin
Trade Name Freq PRN Reason Stop Dose Admin
Acetaminophen 650 mg 11/13/23 21:27
Acetaminophen 325 Mg Tablet PO 12/11/23 21:26
Q4HPRN PRN
mild pain/BUCHANAN/temp> 100.4F
Amlodipine Besylate 10 mg 11/14/23 08:00
Amlodipine 10 Mg Tablet PO 12/12/23 07:59
DAILY ELOISE
Bisacodyl 10 mg 11/13/23 21:27
Bisacodyl 10 Mg Rectal Suppository RECTAL 12/11/23 21:26
[id number] PRN
constipation
Enoxaparin Sodium 40 mg 11/14/23 18:00
Enoxaparin Sodium 40 Mg/0.4 Ml Syringe SC 12/12/23 17:59
QPM ELOISE
Escitalopram Oxalate 20 mg 11/14/23 08:00
Escitalopram 20 Mg Tablet PO 12/12/23 07:59
DAILY ELOISE
Gabapentin 1,200 mg 11/13/23 22:00 11/13/23 22:02
Gabapentin 400 Mg Capsule PO 12/11/23 21:59 1,200 mg
BID ELOISE Administration
Levetiracetam 750 mg 10/07/24 22:00 11/13/23 21:46
Levetiracetam 500 Mg Regular Release Tablet PO 12/11/23 21:59 750 mg
BID ELOISE Administration
Lorazepam 1 mg 11/13/23 21:40 11/14/23 05:38
Lorazepam 2 Mg/Ml Vial IV 12/11/23 21:39 1 mg
Q4HPRN PRN Administration
seizure
Losartan Potassium 100 mg 11/14/23 08:00
Losartan 100 Mg Tablet PO 12/12/23 07:59
DAILY ELOISE
Methimazole 5 mg 11/14/23 08:00
Methimazole 5 Mg Tablet PO 12/12/23 07:59
SuTuThSa@0800 ELOISE
Metoprolol Succinate 25 mg 11/14/23 08:00
Metoprolol 25 Mg Extended Release Tablet PO 12/12/23 07:59
DAILY ELOISE
Polyethylene Glycol 17 grams 11/13/23 21:27
Polyethylene Glycol Powder 17 Grams Packet PO 12/11/23 21:26
DAILYPRN PRN
constipation
Rosuvastatin Calcium 5 mg 11/14/23 08:00
Rosuvastatin (Crestor) 5 Mg Tablet PO 12/12/23 07:59
DAILY ELOISE
Senna/Docusate Sodium 1 tablet 11/13/23 21:27
Docusate W/Senna (Thao-Colace) Tablet PO 12/11/23 21:26
BIDPRN PRN
constipation
Sodium Chloride 0 flush 11/13/23 22:00
Sodium Chloride 0.9% (Flush) Syringe IV 12/11/23 21:59
PER PROTOCOL ELOISE
Sodium Chloride 0.5 ml 11/13/23 21:40
Nss (Pf) 10 Ml Vial For Ativan 1 Mg Dose IV 12/11/23 21:39
Q4HPRN PRN
IV LORAZEPAM DILUTION
Temazepam 30 mg 11/13/23 21:39
Temazepam 15 Mg Capsule PO 12/11/23 21:38
HSPRN PRN
sleep
Home Medications
�Medication �Instructions �Recorded
amlodipine 10 mg tablet 10 mg PO DAILY Blood pressure 05/18/18
gabapentin 600 mg tablet 1,200 mg PO BID Seizures 05/18/18
methimazole 5 mg tablet 5 mg PO SUTUTHSA Thyroid 05/18/18
temazepam 30 mg capsule 30 mg PO HSPRN PRN sleep 05/18/18
metoprolol succinate 25 mg 25 mg PO DAILY Heart Failure 02/10/22
tablet,extended release 24 hr
(Toprol XL)
escitalopram oxalate 20 mg tablet 20 mg PO DAILY Depression 03/31/22
losartan 100 mg tablet 100 mg PO DAILY Blood Pressure 03/31/22
linaclotide 145 mcg capsule 145 mcg PO DAILYPRN PRN 09/26/23
(Linzess) constipation
rosuvastatin 5 mg tablet 5 mg PO DAILY High Cholesterol 09/26/23
abatacept 125 mg/mL subcutaneous 125 mg SC BURROWS 10/11/23
syringe (Orencia)
cholecalciferol (vitamin D3) 125 125 mcg PO DAILY 10/11/23
mcg (5,000 unit) tablet (Vitamin
D3)
ibuprofen 200 mg tablet 800 mg PO Q8HPRN PRN mild pain 10/11/23
methylcellulose (laxative) 500 mg 500 mg PO BID 10/11/23
tablet (Citrucel)
omega 0-aty-bsp-fish oil 1,200 mg 1 cap PO DAILY 10/11/23
(144 mg-216 mg) capsule (Fish Oil)
therapeutic multivitamin 1 tab PO DAILY 10/11/23
levetiracetam 750 mg tablet 750 mg PO BID 11/13/23
midazolam 5 mg/spray (0.1 mL) 1 spray intranasal DAILYPRN PRN 11/13/23
nasal spray (Nayzilam) seizure
Vital Signs and Labs
-
Vital Signs and Labs:
Vital Signs
Temp Pulse Resp BP Pulse Ox
36.0 C L 44 13 119/58 96
11/13/23 17:56 11/14/23 03:15 11/14/23 03:15 11/14/23 03:00 11/14/23 07:00
Lab Results
11/14/23 05:21
11/14/23 05:21
Sodium 142 mmol/L (135-145) 11/14/23 05:21
Potassium 4.4 mmol/L (3.5-5.1) 11/14/23 05:21
BUN 18 mg/dl (7-17) H 11/14/23 05:21
Glucose 92 mg/dl (70-99) 11/14/23 05:21
Calcium 9.8 mg/dl (8.4-10.2) 11/14/23 05:21
Medications
-
Medications:
Generic Name Dose Route Start Last Admin
Trade Name Freq PRN Reason Stop Dose Admin
Acetaminophen 650 mg 11/13/23 21:27
Acetaminophen 325 Mg Tablet PO 12/11/23 21:26
Q4HPRN PRN
mild pain/BUCHANAN/temp> 100.4F
Amlodipine Besylate 10 mg 11/14/23 08:00
Amlodipine 10 Mg Tablet PO 12/12/23 07:59
DAILY ELOISE
Bisacodyl 10 mg 11/13/23 21:27
Bisacodyl 10 Mg Rectal Suppository RECTAL 12/11/23 21:26
[id number] PRN
constipation
Enoxaparin Sodium 40 mg 11/14/23 18:00
Enoxaparin Sodium 40 Mg/0.4 Ml Syringe SC 12/12/23 17:59
QPM ELOISE
Escitalopram Oxalate 20 mg 11/14/23 08:00
Escitalopram 20 Mg Tablet PO 12/12/23 07:59
DAILY ELOISE
Gabapentin 1,200 mg 11/13/23 22:00 11/13/23 22:02
Gabapentin 400 Mg Capsule PO 12/11/23 21:59 1,200 mg
BID ELOISE Administration
Levetiracetam 750 mg 11/13/23 22:00 11/13/23 21:46
Levetiracetam 500 Mg Regular Release Tablet PO 12/11/23 21:59 750 mg
BID ELOISE Administration
Lorazepam 1 mg 11/13/23 21:40 11/14/23 05:38
Lorazepam 2 Mg/Ml Vial IV 12/11/23 21:39 1 mg
Q4HPRN PRN Administration
seizure
Losartan Potassium 100 mg 11/14/23 08:00
Losartan 100 Mg Tablet PO 12/12/23 07:59
DAILY ELOISE
Methimazole 5 mg 11/14/23 08:00
Methimazole 5 Mg Tablet PO 12/12/23 07:59
SuTuThSa@0800 ELOISE
Metoprolol Succinate 25 mg 11/14/23 08:00
Metoprolol 25 Mg Extended Release Tablet PO 12/12/23 07:59
DAILY ELOISE
Polyethylene Glycol 17 grams 11/13/23 21:27
Polyethylene Glycol Powder 17 Grams Packet PO 12/11/23 21:26
DAILYPRN PRN
constipation
Rosuvastatin Calcium 5 mg 11/14/23 08:00
Rosuvastatin (Crestor) 5 Mg Tablet PO 12/12/23 07:59
DAILY ELOISE
Senna/Docusate Sodium 1 tablet 11/13/23 21:27
Docusate W/Senna (Thao-Colace) Tablet PO 12/11/23 21:26
BIDPRN PRN
constipation
Sodium Chloride 0 flush 11/13/23 22:00
Sodium Chloride 0.9% (Flush) Syringe IV 12/11/23 21:59
PER PROTOCOL ELOISE
Sodium Chloride 0.5 ml 11/13/23 21:40
Nss (Pf) 10 Ml Vial For Ativan 1 Mg Dose IV 12/11/23 21:39
Q4HPRN PRN
IV LORAZEPAM DILUTION
Temazepam 30 mg 11/13/23 21:39
Temazepam 15 Mg Capsule PO 12/11/23 21:38
HSPRN PRN
sleep
Home Medications
-
Home Medications
amlodipine 10 mg tablet 10 mg PO DAILY Blood pressure 05/18/18
gabapentin 600 mg tablet 1,200 mg PO BID Seizures 05/18/18
methimazole 5 mg tablet 5 mg PO SUTUTHSA Thyroid 05/18/18
temazepam 30 mg capsule 30 mg PO HSPRN PRN sleep 05/18/18
metoprolol succinate 25 mg tablet,extended release 24 hr (Toprol XL) 25 mg PO DAILY Heart Failure 02/10/22
escitalopram oxalate 20 mg tablet 20 mg PO DAILY Depression 03/31/22
losartan 100 mg tablet 100 mg PO DAILY Blood Pressure 03/31/22
linaclotide 145 mcg capsule (Linzess) 145 mcg PO DAILYPRN PRN constipation 09/26/23
rosuvastatin 5 mg tablet 5 mg PO DAILY High Cholesterol 09/26/23
abatacept 125 mg/mL subcutaneous syringe (Orencia) 125 mg SC BURROWS 10/11/23
cholecalciferol (vitamin D3) 125 mcg (5,000 unit) tablet (Vitamin D3) 125 mcg PO DAILY 10/11/23
ibuprofen 200 mg tablet 800 mg PO Q8HPRN PRN mild pain 10/11/23
methylcellulose (laxative) 500 mg tablet (Citrucel) 500 mg PO BID 10/11/23
omega 0-htg-atb-fish oil 1,200 mg (144 mg-216 mg) capsule (Fish Oil) 1 cap PO DAILY 10/11/23
therapeutic multivitamin 1 tab PO DAILY 10/11/23
levetiracetam 750 mg tablet 750 mg PO BID 11/13/23
midazolam 5 mg/spray (0.1 mL) nasal spray (Nayzilam) 1 spray intranasal DAILYPRN PRN seizure 11/13/23
--- NOTE | 2023-11-14 08:50 | W.PN.HOSP.TC ---
Today's Communication/Plan
-
Continue Levetiracetam
Check labs as ordered
Follow Keppra level
Assessment / Plan
Assessment / Plan
Physical Exam
General: Well Developed, Well Nourished and No Apparent Distress
HEENT: Normocephalic, Moist mucous membranes
Respiratory: Clear
Cardiac: S1/S2 and Regular Rhythm
GI: Soft, Non Tender, Non Distended and Normal Bowel Sounds
Musculoskeletal: No Cyanosis and No Edema
Skin: Warm. Dry.
Neuro: AO x 3 and Nonfocal/grossly intact

Assessment/Plan
73 y/o female with past medical history significant for ASCVD / CVA, hypertension, anxiety and recent seizure activity who presents to ED complaining of recurrent seizures. Patient was previously admitted here (09/25 - 09/27 and 10/10 - 10/12) with
similar symptoms. She was started on Keppra and Vimpat was added. Evaluation including imaging, EEG, etc was essentially unremarkable. After her last admission here, she was hospitalized at [facility] for similar complaint. Full work-up was completed
and was reportedly similarly unrevealing. her Vimpat was discontinued and she was discharged to home. Today she had recurrence of her seizure activity. Seizures are described as episodes of staring into space and 'stiffening' of the extremities.
Each lasts for about 45 seconds before resolving. She has urinary incontinence at times with these episodes. Patient notes that she had 16 such episodes at home today - prompting evaluation in the ED.
#seizure - probably PNES
-CT head with no acute or focal changes
-Keppra level pending
-Continue Keppra
-seizure precaution
-neurology consulted, appreciate their evaluation and recommendations
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 Garzon, on 11/14/23 and he mentioned that Vikash Encephalopathy was very unlikely but possible and that�s really a diagnosis of exclusion and there�s not a lot of treatment
-Fall precautions
-Continue Lexapro 20mg QD
-Please follow-up CK, ua, ua cx, mag
-Continue Gabapentin 1200 mg BID for TN
-Please obtain a copy of neurology notes from [facility].
#HLD: cont statin
#Hyperthyroidism: TSH normal, continue methimazole
#Migraine Headaches
#Trigeminal neuralgia: cont Neurontin
#Essential hypertension: cont Norvasc/Losartan/Toprol XL with hold parameter
#anxiety/depression
-citalopram continued
#RA
-on orencia
#hxt of MS
-follows neurology as outpatient.
DNR/Lovenox
Anticipated Discharge: Within 24 hours
Subjective/Interval History
-
Date of Service: November 14, 2023
Patient was seen and examined. She reported no new symptoms since she came in, was doing okay at the time she was seen.
Objective Data
-
Labs:
Laboratory Results
11/14/23
05:21
WBC 10.8
Hgb 11.4 L
Hct 34.5 L
Plt Count 246
Sodium 142
Potassium 4.4
Chloride 109 H
Carbon Dioxide 22
BUN 18 H
Creatinine 0.8
Glucose 92
Calcium 9.8
Vital Signs:
Vital Signs
Temp Pulse Resp BP Pulse Ox
96.8 F L 44 13 119/58 96
11/13/23 17:56 11/14/23 03:15 11/14/23 03:15 11/14/23 03:00 11/14/23 07:00
[2023-11-14] MEDS: NEURONTIN 1200 MG PO ×2 (09:21→21:01)
[2023-11-14] MEDS: KEPPRA 750 MG PO ×2 (09:22→21:02)
[2023-11-14] MEDS: LEXAPRO 20 MG PO (09:23)
[2023-11-14] MEDS: TOPROL XL 25 MG PO (09:24)
[2023-11-14] MEDS: COZAAR 100 MG PO (09:24)
[2023-11-14] MEDS: CRESTOR 5 MG PO (09:25)
[2023-11-14] MEDS: NORVASC 10 MG PO (09:25)
[2023-11-14] MEDS: MIRALAX 17 GRAMS PO (09:31)
[2023-11-14] MEDS: TAPAZOLE 5 MG PO (10:11)
[2023-11-14] MEDS: LOVENOX 40 MG SC (18:19)
[2023-11-14] MEDS: RESTORIL 30 MG PO (21:25)
[2023-11-14 22:29] LABS: Urine Albumin Negative (Neg - Trace); Urine Bilirubin Negative (Negative); Urine Character Clear (Clear); Urine Color Yellow; Urine Glucose Negative (Negative); Urine Ketone Negative (Negative); Urine Leukocyte Negative (Negative); Urine Nitrite Negative (Negative); Urine Occult Blood Negative (Negative); Urine Urobilinogen Negative (Neg - 1+)
[2023-11-15] VITALS (9 sets, daily range): BP systolic 112–144; BP diastolic 48–67; PULSE 52; O2SAT 99–100
[2023-11-15] MEDS: ATIVAN 1 MG IV (07:46)
[2023-11-15] MEDS: NSS (PRESERVATIVE FREE) 0.5 ML IV (07:47)
[2023-11-15] MEDS: FLUSH (NSS) 1 FLUSH IV (07:47)
--- NOTE | 2023-11-15 07:49 | PTCARENOTE ---
Pt [id number] able to make her needs known.Seizure precautions maintained on pt.Pt rested comfortably overnight,oob with 1 person assist to BR,pt rings appropriately. On bed alarm for safety. No seizure activity noted overnight on pt.Plan of care
continued on pt.
--- NOTE | 2023-11-15 08:10 | PTCARENOTE ---
Pt with 3 witnessed seizures between 7:30 am- 8:00 am; lasting approx 30 seconds; pt awake immediately after seizure activity; c/o pain in posterior neck. IV Ativan 1 mg given. Pt resting quietly at present. Dr. Alfonso and Sonam notified.
Will continue to monotor.
[2023-11-15] MEDS: COZAAR 100 MG PO (08:31)
[2023-11-15] MEDS: CRESTOR 5 MG PO (08:32)
[2023-11-15] MEDS: KEPPRA 750 MG PO ×2 (08:32→20:23)
[2023-11-15] MEDS: LEXAPRO 20 MG PO (08:33)
[2023-11-15] MEDS: TOPROL XL 25 MG PO (08:33)
[2023-11-15] MEDS: NORVASC 10 MG PO (08:33)
[2023-11-15] MEDS: NEURONTIN 1200 MG PO ×2 (08:34→20:24)
[2023-11-15 08:59] LABS: Hematocrit 36.1 % (37.0-47.0); Hemoglobin 11.8 g/dL (12.0-16.0); Mean Corp Hgb Conc. 32.7 g/dL (33.0-37.0); Mean Corpuscular Hgb 25.4 pg (27.0-31.0); Mean Corpuscular Volume 77.8 fL (81.0-99.0); Mean Platelet Volume 9.7 fL (7.4-10.4); Platelet Count 264 10^3/uL (130-400); Red Blood Cell Count 4.64 10^6/uL (4.20-5.40); Red Cell Dist. Width 13.5 % (11.5-14.5); White Blood Cell Count 7.5 10^3/uL (4.8-10.8)
[2023-11-15 10:05] LABS: ALT (SGPT) 22 U/L (0-35); AST (SGOT) 25 U/L (14-36); Albumin 4.2 g/dl (3.5-5.0); Alkaline Phosphatase 153 U/L (38-126); Blood Urea Nitrogen 17 mg/dl (7-17); Calcium 10.1 mg/dl (8.4-10.2); Carbon Dioxide 24 mmol/L (22-30); Chloride 105 mmol/L (98-107); Creatine Phosphokinase 60 U/L (30-135); Estimated Creatinine Clearance 56 ml/min; Glucose 103 mg/dl (70-99); Magnesium 2.1 mg/dl (1.6-2.3); Potassium 4.2 mmol/L (3.5-5.1); Sodium 140 mmol/L (135-145); Total Bilirubin 0.3 mg/dl (0.2-1.3); eGFR > 60.00
--- NOTE | 2023-11-15 11:09 | W.PN.NEURO.1 ---
Today's Communication / Plan
-
.
Subjective/Objective
Subjective Data
Date of Service: November 15, 2023
Neurology Follow up Note
Ms. Myers reportedly had 3 spells in the morning preceeded by 'sensation in my head' with associated UI.
The patient states that she was planned to be weaned off Keppra since her spells are not epileptic.
MAR: Ativan 1 mg IV once at 07:46 AM on 11/15/2023.
CK, TSH-normal
Brain MRI w/wo charlie(10/13/2023) scattered T2/FLAIR hyperintensities within the subcortical and periventricular white matter of the bilateral cerebral hemispheres which is nonspecific.
Routine EEG(10/12/2023) normal
Routine EEG(09/26/2023) normal
PMH: RRMS, trigeminal neuralgia, HTN, DLP, CHARLIE, MDD, LS DJD, OA, RA on Orencia, DLP, insomnia; hyperthyroidism, diverticulosis, vit D deficiency
PSH: L4-5 discectomy(1990, 1993), R TKA, partial thyroidectomy; endoscopic sinus surgery
SH: , ambulates with a cane
FH:cousin-lupus, brother, father-DM;
All:tramadol, povidone-iodine, morphine
ROS:Constitutional: Negative. Negative for chills, fever and unexpected weight change.
HENT: Negative for ear pain, hearing loss, tinnitus and trouble swallowing.
Eyes: Negative. Negative for photophobia, pain and visual disturbance.
Respiratory: Negative for cough, choking and shortness of breath.
Cardiovascular: Negative for chest pain, palpitations and leg swelling.
Gastrointestinal: positive for constipation
Endocrine: Negative. Negative for cold intolerance.
Genitourinary: Negative for dysuria, flank pain and urgency.
Musculoskeletal: Negative for back pain, gait problem, neck pain and neck stiffness.
Skin: Negative for rash.
Allergic/Immunologic: Negative. Negative for immunocompromised state.
Neurological: positive for recurrent spells, imbalance
Psychiatric/Behavioral: Negative for behavioral problems, confusion and hallucinations.
General: Well developed. In no acute distress.
Cardio: Regular rate and rhythm without murmur. Extremities are without cyanosis or edema.
Neuro:
Mental Status: Alert, oriented to person, place, and date. Normal attention and recall. Good fund of knowledge. Follows complex requests across the midline. Comprehension, naming, and repetition intact. Immediate recall 3/3.
Cranial Nerves: .Pupils are equally round and reactive to light. EOMs full. Visual haskins full to confrontation. No ptosis. No nystagmus. V1-V3 intact to light touch and pinprick bilaterally, symmetric. Face symmetric. Normal hearing AU. The
palate elevated well. SCMs and traps 5/5. Tongue midline. No dysarthria.
Motor: Normal bulk and tone. No pronator or arm drift. Strength 5/5 throughout. No clonus.
Reflexes: 2+ throughout the upper extremities and knees. Plantar responses flexor bilaterally.
Sensory: reduced vibration at the right toes, ankle
Coordination: No dysmetria or tremor.
Gait: deferred
No tongue laceration
Assessment and Plan:
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
II. Sinus bradycardia
III. History of RRMS
IV. CHARLIE
V. History of trigeminal neuralgia
-fall precautions
-Continue Lexapro 20mg QD
-Continue Gabapentin 1200 mg BID for TN
-Continue Keppra 750 mg BID until med records are reviewed.
-Please obtain a copy of neurology notes from [facility] and Urban Flores MD
-Psychiatry consult
I personally reviewed all radiology and labs along with past medical records pertinent to current medical problems. Total time spent in patient care is 35 minutes.
Thank you for allowing us to participate in the care of this patient. We will continue to follow. Please do not hesitate to contact us with any questions or concerns.
Objective Data
Vital Signs
Temp Pulse Resp BP Pulse Ox
36.8 C 52 10 131/60 100
11/15/23 07:55 11/15/23 08:33 11/15/23 08:22 11/15/23 08:33 11/15/23 08:31
Lab Results
11/15/23 08:18
11/15/23 08:18
Sodium 140 mmol/L (135-145) 11/15/23 08:18
Potassium 4.2 mmol/L (3.5-5.1) 11/15/23 08:18
BUN 17 mg/dl (7-17) 11/15/23 08:18
Glucose 103 mg/dl (70-99) H 11/15/23 08:18
Calcium 10.1 mg/dl (8.4-10.2) 11/15/23 08:18
Patient Allergies
adhesive tape [Adhesive Tape] Allergy (Verified 10/11/23 15:54)
Rash, Burning
morphine Allergy (Verified 10/11/23 15:54)
NAUSEA/VOMITING
povidone-iodine [From Betadine] Allergy (Verified 10/11/23 15:54)
Itching, rash
silver Allergy (Verified 10/11/23 15:54)
Itching
soap [From Betadine] Allergy (Verified 10/11/23 15:54)
Itching, rash
tramadol Allergy (Verified 10/11/23 15:54)
SEE BELOW
Vital Signs and Labs
-
Vital Signs and Labs:
Vital Signs
Temp Pulse Resp BP Pulse Ox
36.8 C 52 10 131/60 100
11/15/23 07:55 11/15/23 08:33 11/15/23 08:22 11/15/23 08:33 11/15/23 08:31
Lab Results
11/15/23 08:18
11/15/23 08:18
Sodium 140 mmol/L (135-145) 11/15/23 08:18
Potassium 4.2 mmol/L (3.5-5.1) 11/15/23 08:18
BUN 17 mg/dl (7-17) 11/15/23 08:18
Glucose 103 mg/dl (70-99) H 11/15/23 08:18
Calcium 10.1 mg/dl (8.4-10.2) 11/15/23 08:18
Medications
-
Medications:
Generic Name Dose Route Start Last Admin
Trade Name Freq PRN Reason Stop Dose Admin
Acetaminophen 650 mg 11/13/23 21:27
Acetaminophen 325 Mg Tablet PO 12/11/23 21:26
Q4HPRN PRN
mild pain/BUCHANAN/temp> 100.4F
Amlodipine Besylate 10 mg 11/14/23 08:00 11/15/23 08:33
Amlodipine 10 Mg Tablet PO 12/12/23 07:59 10 mg
DAILY ELOISE Administration
Bisacodyl 10 mg 11/13/23 21:27
Bisacodyl 10 Mg Rectal Suppository RECTAL 12/11/23 21:26
[id number] PRN
constipation
Enoxaparin Sodium 40 mg 11/14/23 18:00 11/14/23 18:19
Enoxaparin Sodium 40 Mg/0.4 Ml Syringe SC 12/12/23 17:59 40 mg
QPM ELOISE Administration
Escitalopram Oxalate 20 mg 11/14/23 08:00 11/15/23 08:33
Escitalopram 20 Mg Tablet PO 12/12/23 07:59 20 mg
DAILY ELOISE Administration
Gabapentin 1,200 mg 11/13/23 22:00 11/15/23 08:34
Gabapentin 400 Mg Capsule PO 12/11/23 21:59 1,200 mg
BID ELOISE Administration
Levetiracetam 750 mg 11/13/23 22:00 11/15/23 08:32
Levetiracetam 500 Mg Regular Release Tablet PO 12/11/23 21:59 750 mg
BID ELOISE Administration
Lorazepam 1 mg 11/13/23 21:40 11/15/23 07:46
Lorazepam 2 Mg/Ml Vial IV 12/11/23 21:39 1 mg
Q4HPRN PRN Administration
seizure
Losartan Potassium 100 mg 11/14/23 08:00 11/15/23 08:31
Losartan 100 Mg Tablet PO 12/12/23 07:59 100 mg
DAILY ELOISE Administration
Methimazole 5 mg 11/14/23 08:00 11/14/23 10:11
Methimazole 5 Mg Tablet PO 12/12/23 07:59 5 mg
[id number]@0800 ELOISE Administration
Metoprolol Succinate 25 mg 11/14/23 08:00 11/15/23 08:33
Metoprolol 25 Mg Extended Release Tablet PO 12/12/23 07:59 25 mg
DAILY ELOISE Administration
Polyethylene Glycol 17 grams 11/13/23 21:27 11/14/23 09:31
Polyethylene Glycol Powder 17 Grams Packet PO 12/11/23 21:26 17 grams
DAILYPRN PRN Administration
constipation
Rosuvastatin Calcium 5 mg 11/14/23 08:00 11/15/23 08:32
Rosuvastatin (Crestor) 5 Mg Tablet PO 12/12/23 07:59 5 mg
DAILY ELOISE Administration
Senna/Docusate Sodium 1 tablet 11/13/23 21:27
Docusate W/Senna (Thao-Colace) Tablet PO 12/11/23 21:26
BIDPRN PRN
constipation
Sodium Chloride 0 flush 11/13/23 22:00 11/15/23 07:47
Sodium Chloride 0.9% (Flush) Syringe IV 12/11/23 21:59 1 flush
PER PROTOCOL ELOISE Administration
Sodium Chloride 0.5 ml 11/13/23 21:40 11/15/23 07:47
Nss (Pf) 10 Ml Vial For Ativan 1 Mg Dose IV 12/11/23 21:39 0.5 ml
Q4HPRN PRN Administration
IV LORAZEPAM DILUTION
Temazepam 30 mg 11/13/23 21:39 11/14/23 21:25
Temazepam 15 Mg Capsule PO 12/11/23 21:38 30 mg
HSPRN PRN Administration
sleep
Home Medications
-
Home Medications
amlodipine 10 mg tablet 10 mg PO DAILY Blood pressure 05/18/18
gabapentin 600 mg tablet 1,200 mg PO BID Seizures 05/18/18
methimazole 5 mg tablet 5 mg PO SUTUTHSA Thyroid 05/18/18
temazepam 30 mg capsule 30 mg PO HSPRN PRN sleep 05/18/18
metoprolol succinate 25 mg tablet,extended release 24 hr (Toprol XL) 25 mg PO DAILY Heart Failure 02/10/22
escitalopram oxalate 20 mg tablet 20 mg PO DAILY Depression 03/31/22
losartan 100 mg tablet 100 mg PO DAILY Blood Pressure 03/31/22
linaclotide 145 mcg capsule (Linzess) 145 mcg PO DAILYPRN PRN constipation 09/26/23
rosuvastatin 5 mg tablet 5 mg PO DAILY High Cholesterol 09/26/23
abatacept 125 mg/mL subcutaneous syringe (Orencia) 125 mg SC BURROWS 10/11/23
cholecalciferol (vitamin D3) 125 mcg (5,000 unit) tablet (Vitamin D3) 125 mcg PO DAILY 10/11/23
ibuprofen 200 mg tablet 800 mg PO Q8HPRN PRN mild pain 10/11/23
methylcellulose (laxative) 500 mg tablet (Citrucel) 500 mg PO BID 10/11/23
omega [id number]-fish oil 1,200 mg (144 mg-216 mg) capsule (Fish Oil) 1 cap PO DAILY 10/11/23
therapeutic multivitamin 1 tab PO DAILY 10/11/23
levetiracetam 750 mg tablet 750 mg PO BID 11/13/23
midazolam 5 mg/spray (0.1 mL) nasal spray (Nayzilam) 1 spray intranasal DAILYPRN PRN seizure 11/13/23
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
--- NOTE | 2023-11-15 16:57 | PTCARENOTE ---
Pt AAO x3, BECKMAN; OOB to BR with assist x1, kareem well, no c/o weakness/dizziness. Seizure prec maintained. VSS. Telemetry:sinus chico 50's. On room air- pulseox 100 %, no SOB noted. Abd soft, rounded, kareem PO. Voiding in BR without difficulty.
Resting in bed at present, no c/o. Will continue to monitor.
[2023-11-15] MEDS: TYLENOL 650 MG PO (17:03)
--- NOTE | 2023-11-15 17:30 | CM ---
CM met with Paulina and her earlier today. IA completed.
Paulina has MS and has been having seizures on and off throughout the day. She had 3 witnessed seizures When she is feeling well she is (I) amb and adls at home with assistance from her as needed. They live in a 2 story home with 1 entry
step. bathroom is on both floors. Pt only climbs the steps with her in attendance in case she falls.
VN was ordered and offered, but declined.
Plan: Discharge to home with and no needs per patient and .
[2023-11-15] MEDS: LOVENOX 40 MG SC (17:59)
--- NOTE | 2023-11-15 18:34 | W.PN.HOSP.TC ---
Today's Communication/Plan
-
Psychiatry evaluation
Await records
Hopefully discharge in the next day or two
Assessment / Plan
Assessment / Plan
Physical Exam
General: Well Developed, Well Nourished and No Apparent Distress
HEENT: Normocephalic, Moist mucous membranes
Respiratory: Clear
Cardiac: S1/S2 and Regular Rhythm
GI: Soft, Non Tender, Non Distended and Normal Bowel Sounds
Musculoskeletal: No Cyanosis and No Edema
Skin: Warm. Dry.
Neuro: AO x 3 and Nonfocal/grossly intact

Assessment/Plan
73 y/o female with past medical history significant for ASCVD / CVA, hypertension, anxiety and recent seizure activity who presents to ED complaining of recurrent seizures. Patient was previously admitted here (09/25 - 09/27 and 10/10 - 10/12) with
similar symptoms. She was started on Keppra and Vimpat was added. Evaluation including imaging, EEG, etc was essentially unremarkable. After her last admission here, she was hospitalized at [place] for similar complaint. Full work-up was completed
and was reportedly similarly unrevealing. her Vimpat was discontinued and she was discharged to home. Today she had recurrence of her seizure activity. Seizures are described as episodes of staring into space and 'stiffening' of the extremities.
Each lasts for about 45 seconds before resolving. She has urinary incontinence at times with these episodes. Patient notes that she had 16 such episodes at home today - prompting evaluation in the ED.
#seizure - probably PNES
-CT head with no acute or focal changes
-Keppra level pending
-Continue Keppra 750 mg BID until med records are reviewed.
-seizure precaution
-neurology consulted, appreciate their evaluation and recommendations
-I spoke with patient's video game script writer, Dr. Garzon, on 11/14/23 and he mentioned that Vikash Encephalopathy was very unlikely but possible and that�s really a diagnosis of exclusion and there�s not a lot of treatment
-Fall precautions
-Continue Lexapro 20mg QD
-Please follow-up CK, ua, ua cx, mag
-Continue Gabapentin 1200 mg BID for TN
-Please obtain a copy of neurology notes from [facility] and Urban Flores MD
-Psychiatry consult given suspected PNES - appreciate their evaluation and recommendations
#HLD: cont statin
#Hyperthyroidism: TSH normal, continue methimazole. Follow-up on free T4
#Anemia
-Follow-up on iron studies
#Migraine Headaches
#Trigeminal neuralgia: cont Neurontin
#Essential hypertension: cont Norvasc/Losartan/Toprol XL with hold parameter
#anxiety/depression
-citalopram continued
#RA
-on orencia
#hxt of MS
-follows neurology as outpatient.
DNR/Lovenox
Anticipated Discharge: 24 - 48 hours
Subjective/Interval History
-
Date of Service: November 15, 2023
Patient was seen and examined. She reported more seizures this morning, but she did not have any loss of consciousness.
Objective Data
-
Labs:
Laboratory Results
11/15/23
08:18
WBC 7.5
Hgb 11.8 L
Hct 36.1 L
Plt Count 264
Sodium 140
Potassium 4.2
Chloride 105
Carbon Dioxide 24
BUN 17
Creatinine 0.8
Glucose 103 H
Calcium 10.1
Total Bilirubin 0.3
AST 25
ALT 22
Alkaline Phosphatase 153 H
Vital Signs:
Vital Signs
Temp Pulse Resp BP Pulse Ox
97.7 F 53 16 112/55 100
11/15/23 15:03 11/15/23 15:03 11/15/23 15:03 11/15/23 15:03 11/15/23 16:57
I&O
11/14/23 11/15/23 11/16/23
06:59 06:59 06:59
Intake Total 240 / 240 600 / 600
Output Total 800 / 800
Balance -560 / -560 600 / 600
[2023-11-15] MEDS: RESTORIL 30 MG PO (20:30)
[2023-11-15 20:57] LABS: Keppra (Levetiracetam) 56 ug/mL (10-40)
[2023-11-16 03:26] VITALS: BP 105/53
[2023-11-16 07:32] VITALS: BP 135/65
[2023-11-16 08:29] LABS: Hematocrit 39.8 % (37.0-47.0); Hemoglobin 12.7 g/dL (12.0-16.0); Mean Corp Hgb Conc. 31.9 g/dL (33.0-37.0); Mean Corpuscular Hgb 26.2 pg (27.0-31.0); Mean Corpuscular Volume 82.1 fL (81.0-99.0); Mean Platelet Volume 10.2 fL (7.4-10.4); Platelet Count 266 10^3/uL (130-400); Red Blood Cell Count 4.85 10^6/uL (4.20-5.40); Red Cell Dist. Width 13.4 % (11.5-14.5); White Blood Cell Count 6.9 10^3/uL (4.8-10.8)
[2023-11-16] MEDS: COZAAR 100 MG PO (08:44)
[2023-11-16] MEDS: KEPPRA 750 MG PO (08:45)
[2023-11-16] MEDS: NEURONTIN 1200 MG PO (08:45)
[2023-11-16] MEDS: NORVASC 10 MG PO (08:45)
[2023-11-16] MEDS: CRESTOR 5 MG PO (08:45)
[2023-11-16] MEDS: TOPROL XL 25 MG PO (08:46)
[2023-11-16] MEDS: LEXAPRO 20 MG PO (08:46)
[2023-11-16] MEDS: FLUSH (NSS) 1 FLUSH IV ×2 (08:46→09:12)
[2023-11-16] MEDS: TAPAZOLE 5 MG PO (08:48)
[2023-11-16] MEDS: MIRALAX 17 GRAMS PO (08:56)
[2023-11-16 09:11] LABS: Blood Urea Nitrogen 15 mg/dl (7-17); Calcium 10.2 mg/dl (8.4-10.2); Carbon Dioxide 27 mmol/L (22-30); Chloride 104 mmol/L (98-107); Estimated Creatinine Clearance 56 ml/min; Glucose 88 mg/dl (70-99); Iron 83 ug/dl (37-170); Potassium 4.3 mmol/L (3.5-5.1); Sodium 140 mmol/L (135-145); eGFR > 60.00
[2023-11-16] MEDS: ATIVAN 1 MG IV (09:11)
[2023-11-16] MEDS: NSS (PRESERVATIVE FREE) 0.5 ML IV (09:12)
--- NOTE | 2023-11-16 09:16 | PTCARENOTE ---
patient with 2 episodes of 'lightheadedness and feeling of falling' lasting about 30 seconds. stating this is how her seizures start. requested and given ativan as ordered. plan of care on going.
[2023-11-16 09:21] LABS: Percent Saturation 25 % (20-50); Total Iron Binding Capacity 322 ug/dl (265-497)
[2023-11-16 10:51] LABS: Free T4 0.78 ng/dl (0.78-2.19)
[2023-11-16 11:01] VITALS: BP 128/60
[2023-11-16 11:09] LABS: Ferritin 82.3 ng/ml (11.1-264.0)
[2023-11-16 11:48] LABS: Folate > 20.0 ng/ml (2.76-20); Vitamin B12 843 pg/ml (239-931)
--- NOTE | 2023-11-16 12:45 | W.PN.NEURO.1 ---
Today's Communication / Plan
-
.
Subjective/Objective
Subjective Data
Date of Service: November 16, 2023
Neurology Follow up Note
Ms. Myers states that she had a ' mild seizure' earlier today.
She received 1 mg of Lorazepam at 9:11 AM.
Ms. Myers was seen by psychiatry. She has been afebrile.
TFTs, Ck, Ca, glucose-normal.
Awaiting for med records form [facility] and Urban Flores MD.
PMH: RRMS, trigeminal neuralgia, HTN, DLP, CHARLIE, MDD, LS DJD, OA, RA on Orencia, DLP, insomnia; hyperthyroidism, diverticulosis, vit D deficiency
PSH: L4-5 discectomy(1990, 1993), R TKA, partial thyroidectomy; endoscopic sinus surgery
SH: , ambulates with a cane
FH:cousin-lupus, brother, father-DM;
All:tramadol, povidone-iodine, morphine
ROS:Constitutional: Negative. Negative for chills, fever and unexpected weight change.
HENT: Negative for ear pain, hearing loss, tinnitus and trouble swallowing.
Eyes: Negative. Negative for photophobia, pain and visual disturbance.
Respiratory: Negative for cough, choking and shortness of breath.
Cardiovascular: Negative for chest pain, palpitations and leg swelling.
Gastrointestinal: positive for constipation
Endocrine: Negative. Negative for cold intolerance.
Genitourinary: Negative for dysuria, flank pain and urgency.
Musculoskeletal: Negative for back pain, gait problem, neck pain and neck stiffness.
Skin: Negative for rash.
Allergic/Immunologic: Negative. Negative for immunocompromised state.
Neurological: positive for recurrent spells, imbalance
Psychiatric/Behavioral: Negative for behavioral problems, confusion and hallucinations.
General: Well developed. In no acute distress.
Cardio: Regular rate and rhythm without murmur. Extremities are without cyanosis or edema.
Neuro:
Mental Status: Alert, oriented to person, place, and date. Normal attention and recall. Good fund of knowledge. Follows complex requests across the midline. Comprehension, naming, and repetition intact. Immediate recall 3/3.
Cranial Nerves: .Pupils are equally round and reactive to light. EOMs full. Visual haskins full to confrontation. No ptosis. No nystagmus. V1-V3 intact to light touch and pinprick bilaterally, symmetric. Face symmetric. Normal hearing AU. The
palate elevated well. SCMs and traps 5/5. Tongue midline. No dysarthria.
Motor: Normal bulk and tone. No pronator or arm drift. Strength 5/5 throughout. No clonus.
Reflexes: 2+ throughout the upper extremities and knees. Plantar responses flexor bilaterally.
Sensory: reduced vibration at the right toes, ankle
Coordination: No dysmetria or tremor.
Gait: deferred
No tongue laceration
Assessment and Plan:
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
II. Sinus bradycardia
III. History of RRMS
IV. CHARLIE
V. History of trigeminal neuralgia
-fall precautions
-Continue Gabapentin 1200 mg BID for TN
-Continue Keppra 750 mg BID until med records are reviewed.
-Please obtain a copy of neurology notes from [facility] and Urban Flores MD
-Psychiatry follow up
I personally reviewed all radiology and labs along with past medical records pertinent to current medical problems. Total time spent in patient care is 35 minutes.
Thank you for allowing us to participate in the care of this patient. We will continue to follow. Please do not hesitate to contact us with any questions or concerns.
Objective Data
Vital Signs
Temp Pulse Resp BP Pulse Ox
36.6 C 62 18 128/60 97
11/16/23 11:01 11/16/23 11:01 11/16/23 11:01 11/16/23 11:01 11/16/23 11:01
Lab Results
11/16/23 07:05
11/16/23 07:05
Sodium 140 mmol/L (135-145) 11/16/23 07:05
Potassium 4.3 mmol/L (3.5-5.1) 11/16/23 07:05
BUN 15 mg/dl (7-17) 11/16/23 07:05
Glucose 88 mg/dl (70-99) 11/16/23 07:05
Calcium 10.2 mg/dl (8.4-10.2) 11/16/23 07:05
Vitamin B12 843 pg/ml (239-931) 11/16/23 07:05
Patient Allergies
adhesive tape [Adhesive Tape] Allergy (Verified 10/11/23 15:54)
Rash, Burning
morphine Allergy (Verified 10/11/23 15:54)
NAUSEA/VOMITING
povidone-iodine [From Betadine] Allergy (Verified 10/11/23 15:54)
Itching, rash
silver Allergy (Verified 10/11/23 15:54)
Itching
soap [From Betadine] Allergy (Verified 10/11/23 15:54)
Itching, rash
tramadol Allergy (Verified 10/11/23 15:54)
SEE BELOW
Vital Signs and Labs
-
Vital Signs and Labs:
Vital Signs
Temp Pulse Resp BP Pulse Ox
36.6 C 62 18 128/60 97
11/16/23 11:01 11/16/23 11:01 11/16/23 11:01 11/16/23 11:01 11/16/23 11:01
Lab Results
11/16/23 07:05
11/16/23 07:05
Sodium 140 mmol/L (135-145) 11/16/23 07:05
Potassium 4.3 mmol/L (3.5-5.1) 11/16/23 07:05
BUN 15 mg/dl (7-17) 11/16/23 07:05
Glucose 88 mg/dl (70-99) 11/16/23 07:05
Calcium 10.2 mg/dl (8.4-10.2) 11/16/23 07:05
Vitamin B12 843 pg/ml (949-931) 11/16/23 07:05
Medications
-
Medications:
Generic Name Dose Route Start Last Admin
Trade Name Freq PRN Reason Stop Dose Admin
Acetaminophen 650 mg 11/13/23 21:27 11/15/23 17:03
Acetaminophen 325 Mg Tablet PO 12/11/23 21:26 650 mg
Q4HPRN PRN Administration
mild pain/BUCHANAN/temp> 100.4F
Amlodipine Besylate 10 mg 11/14/23 08:00 11/16/23 08:45
Amlodipine 10 Mg Tablet PO 12/12/23 07:59 10 mg
DAILY ELOISE Administration
Bisacodyl 10 mg 11/13/23 21:27
Bisacodyl 10 Mg Rectal Suppository RECTAL 12/11/23 21:26
[id number] PRN
constipation
Enoxaparin Sodium 40 mg 11/14/23 18:00 11/15/23 17:59
Enoxaparin Sodium 40 Mg/0.4 Ml Syringe SC 12/12/23 17:59 40 mg
QPM ELOISE Administration
Escitalopram Oxalate 20 mg 11/14/23 08:00 11/16/23 08:46
Escitalopram 20 Mg Tablet PO 12/12/23 07:59 20 mg
DAILY ELOISE Administration
Gabapentin 1,200 mg 11/13/23 22:00 11/16/23 08:45
Gabapentin 400 Mg Capsule PO 12/11/23 21:59 1,200 mg
BID ELOISE Administration
Levetiracetam 750 mg 11/13/23 22:00 11/16/23 08:45
Levetiracetam 500 Mg Regular Release Tablet PO 12/11/23 21:59 750 mg
BID ELOISE Administration
Lorazepam 1 mg 11/13/23 21:40 11/16/23 09:11
Lorazepam 2 Mg/Ml Vial IV 12/11/23 21:39 1 mg
Q4HPRN PRN Administration
seizure
Losartan Potassium 100 mg 11/14/23 08:00 11/16/23 08:44
Losartan 100 Mg Tablet PO 12/12/23 07:59 100 mg
DAILY ELOISE Administration
Methimazole 5 mg 11/14/23 08:00 11/16/23 08:48
Methimazole 5 Mg Tablet PO 12/12/23 07:59 5 mg
[id number]@0800 ELOISE Administration
Metoprolol Succinate 25 mg 11/14/23 08:00 11/16/23 08:46
Metoprolol 25 Mg Extended Release Tablet PO 12/12/23 07:59 25 mg
DAILY ELOISE Administration
Polyethylene Glycol 17 grams 11/13/23 21:27 11/16/23 08:56
Polyethylene Glycol Powder 17 Grams Packet PO 12/11/23 21:26 17 grams
DAILYPRN PRN Administration
constipation
Rosuvastatin Calcium 5 mg 11/14/23 08:00 11/16/23 08:45
Rosuvastatin (Crestor) 5 Mg Tablet PO 12/12/23 07:59 5 mg
DAILY ELOISE Administration
Senna/Docusate Sodium 1 tablet 11/13/23 21:27
Docusate W/Senna (Thao-Colace) Tablet PO 12/11/23 21:26
BIDPRN PRN
constipation
Sodium Chloride 0 flush 11/13/23 22:00 11/16/23 09:12
Sodium Chloride 0.9% (Flush) Syringe IV 12/11/23 21:59 1 flush
PER PROTOCOL ELOISE Administration
Sodium Chloride 0.5 ml 11/13/23 21:40 11/16/23 09:12
Nss (Pf) 10 Ml Vial For Ativan 1 Mg Dose IV 12/11/23 21:39 0.5 ml
Q4HPRN PRN Administration
IV LORAZEPAM DILUTION
Temazepam 30 mg 11/13/23 21:39 11/15/23 20:30
Temazepam 15 Mg Capsule PO 12/11/23 21:38 30 mg
HSPRN PRN Administration
sleep
Home Medications
-
Home Medications
amlodipine 10 mg tablet 10 mg PO DAILY Blood pressure 05/18/18
gabapentin 600 mg tablet 1,200 mg PO BID Seizures 05/18/18
methimazole 5 mg tablet 5 mg PO SUTUTHSA Thyroid 05/18/18
temazepam 30 mg capsule 30 mg PO HSPRN PRN sleep 05/18/18
metoprolol succinate 25 mg tablet,extended release 24 hr (Toprol XL) 25 mg PO DAILY Heart Failure 02/10/22
escitalopram oxalate 20 mg tablet 20 mg PO DAILY Depression 03/31/22
losartan 100 mg tablet 100 mg PO DAILY Blood Pressure 03/31/22
linaclotide 145 mcg capsule (Linzess) 145 mcg PO DAILYPRN PRN constipation 09/26/23
rosuvastatin 5 mg tablet 5 mg PO DAILY High Cholesterol 09/26/23
abatacept 125 mg/mL subcutaneous syringe (Orencia) 125 mg SC BURROWS 10/11/23
cholecalciferol (vitamin D3) 125 mcg (5,000 unit) tablet (Vitamin D3) 125 mcg PO DAILY 10/11/23
ibuprofen 200 mg tablet 800 mg PO Q8HPRN PRN mild pain 10/11/23
methylcellulose (laxative) 500 mg tablet (Citrucel) 500 mg PO BID 10/11/23
omega 2-vvf-skk-fish oil 1,200 mg (144 mg-216 mg) capsule (Fish Oil) 1 cap PO DAILY 10/11/23
therapeutic multivitamin 1 tab PO DAILY 10/11/23
levetiracetam 750 mg tablet 750 mg PO BID 11/13/23
midazolam 5 mg/spray (0.1 mL) nasal spray (Nayzilam) 1 spray intranasal DAILYPRN PRN seizure 11/13/23
--- NOTE | 2023-11-16 14:45 | W.PN.HOSP.TC ---
Today's Communication/Plan
-
Discharge today
Assessment / Plan
Assessment / Plan
Physical Exam
General: Not in acute distress
HEENT: Normocephalic, Moist mucous membranes
Respiratory: Clear
Cardiac: S1/S2 and Regular Rhythm
GI: Soft, Non Tender, Non Distended and Normal Bowel Sounds
Musculoskeletal: No Cyanosis and No Edema
Skin: Warm. Dry.
Neuro: AO x 3 and Nonfocal/grossly intact

Assessment/Plan
73 y/o female with past medical history significant for ASCVD / CVA, hypertension, anxiety and recent seizure activity who presents to ED complaining of recurrent seizures. Patient was previously admitted here (09/25 - 09/27 and 10/10 - 10/12) with
similar symptoms. She was started on Keppra and Vimpat was added. Evaluation including imaging, EEG, etc was essentially unremarkable. After her last admission here, she was hospitalized at [facility] for similar complaint. Full work-up was completed
and was reportedly similarly unrevealing. her Vimpat was discontinued and she was discharged to home. Today she had recurrence of her seizure activity. Seizures are described as episodes of staring into space and 'stiffening' of the extremities.
Each lasts for about 45 seconds before resolving. She has urinary incontinence at times with these episodes. Patient notes that she had 16 such episodes at home today - prompting evaluation in the ED.
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
-CT head with no acute or focal changes
-Keppra level pending
-Continue Keppra 750 mg BID until outpatient neurology follow-up
-seizure precaution
-neurology consulted, appreciate their evaluation and recommendations
-I spoke with patient's supervisor carding, Dr. Garzon, on 11/14/23 and he mentioned that Vikash Encephalopathy was very unlikely but possible and that�s really a diagnosis of exclusion and there�s not a lot of treatment
-Fall precautions
-Continue Lexapro 20mg QD
-TFTs, Ck, Ca, glucose-normal.
-Continue Gabapentin 1200 mg BID for TN
-Please obtain a copy of neurology notes from [facility] and Urban Flores MD
-Psychiatry consult given suspected PNES - appreciate their evaluation and recommendations
-Psychiatrist recommend: cutting back Lexapro which can lower the seizure threshhold and she does not feel it helps her anyway -- patient should speak with the doctor who prescribes her Lexapro, then it is suggested decrease to ten mg daily for a
month then reassess mood then reduced to 5 mg daily for a month, and then discontinue it if no changes in mood. Would then reassess need for antidepressants in general and if medications are needed assess what may be helpful. It is recommended to
minimize all sedating medications. Suggested cognitive behavioral strategies for sleep instead of restoril and if gabapentin could be decreased that could be helpful (speak with your outpatient neurologist and psychiatrist about this)
-Outpatient neurology follow-up
-Outpatient psychiatry follow-up
#HLD: cont statin
#Hyperthyroidism: TSH normal, continue methimazole. Follow-up on free T4
#Anemia
-Follow-up on iron studies
#Migraine Headaches
#Trigeminal neuralgia: Continue Gabapentin 1200 mg BID
#Essential hypertension: cont Norvasc/Losartan/Toprol XL with hold parameter
#anxiety/depression
-citalopram continued
#RA
-on orencia
#hxt of MS
-follows neurology as outpatient.
DNR/Lovenox
More than 30 minutes spent in discharge including
Final examination of the patient
Summarizing hospital stay
Instructions for continuing care to all relevant caregivers
Preparation of discharge records, prescriptions, and referral forms
Total time spent (in minutes): 39
Anticipated Discharge: Today
Subjective/Interval History
-
Date of Service: November 16, 2023
Patient was seen and examined. She reported feeling that her seizure was coming on this morning with 2 episodes of 'lightheadedness and feeling of falling' lasting about 30 seconds, did not lose consciousness, but did get Ativan.
Objective Data
-
Labs:
Laboratory Results
11/16/23
07:05
WBC 6.9
Hgb 12.7
Hct 39.8
Plt Count 266
Sodium 140
Potassium 4.3
Chloride 104
Carbon Dioxide 27
BUN 15
Creatinine 0.8
Glucose 88
Calcium 10.2
Vital Signs:
Vital Signs
Temp Pulse Resp BP Pulse Ox
97.9 F 62 18 128/60 97
11/16/23 11:01 11/16/23 11:01 11/16/23 11:01 11/16/23 11:01 11/16/23 11:01
I&O
11/15/23 11/16/23 11/17/23
06:59 06:59 06:59
Intake Total 240 / 240 600 / 600
Output Total 800 / 800
Balance -560 / -560 600 / 600
[2023-11-16 15:41] VITALS: BP 114/54
== END 2023-11-16 19:07 | disposition home or self-care (01) | DRG 101 ==
LOC: 4 EAST ACU 20:32
PROVIDERS: Clinical Nurse Specialist Family Health; Registered Nurse; ADMITTING PHYSICIAN Hospitalist; ATTENDING PHYSICIAN Hospitalist; CONSULT PHYSICIAN Psychiatry & Neurology Neurology; CONSULT PHYSICIAN Psychiatry & Neurology Psychiatry; EMERGENCY PHYSICIAN Emergency Medicine; FAMILY PHYSICIAN Internal Medicine
DX: R56.9 Unspecified convulsions (principal); F32.9 Major depressive disorder, single episode, unspecified; F41.9 Anxiety disorder, unspecified; E05.90 Thyrotoxicosis, unspecified without thyrotoxic crisis or storm; I10 Essential (primary) hypertension; M06.9 Rheumatoid arthritis, unspecified; G50.0 Trigeminal neuralgia; Z66 Do not resuscitate; E78.00 Pure hypercholesterolemia, unspecified; G40.909 Epilepsy, unspecified, not intractable, without status epilepticus; G43.909 Migraine, unspecified, not intractable, without status migrainosus
CPT/HCPCS: 70450; 80048; 80053; 80177; 81003; 82550; 82607; 82728; 82746; 83540; 83550; 83735; 84439; 84443; 84484; 85025; 85027; 93005; 96361; 96374; 97162; 97166; 99285

== ENCOUNTER 2023-12-01 21:08 | Emergency (ER) | payer OTHER, SELFPAY ==
[2023-12-01 21:12] VITALS: BMI 22.4
[2023-12-01 21:14] VITALS: BP 144/82
[2023-12-01] MEDS: ATIVAN 0.5 MG IV (21:38)
--- NOTE | 2023-12-01 21:43 | ED.GENMED ---
History of Present Illness
General
Chief Complaint: Seizure
Source: patient
Exam Limitations: none
Time Seen by Provider: 12/01/23 21:13
Nursing documentation reviewed up to this point in time: agreed with
History of Present Illness
History of Present Illness:
Patient with history of 'focal aware seizure disorder', since 2017, presents to ED secondary to recurrent seizure episode at home, witnessed by her spouse. Per spouse, he was called downstairs by the patient, as she started to complain of
palpitations, which is typical for the patient prior to having seizures. Patient is also complaining of lower leg numbness sensation, which is also present when she is having seizure episodes. Patient is currently being tapered off Keppra by her
neurologist, as her recent EEG did not reveal any epileptic findings. Denies headache. Denies nausea or vomiting. Denies dizziness.
Past History
Past History
ED Past Medical History: HTN, Hypercholesterolemia, Seizures, Psychiatric (Depression), Other (Multiple sclerosis, chronic right neck pain/trigeminal neuralgia, migraine headaches, chronic burping, RA, osteopenia, duodenitis, mesenteric vasculitis),
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 Gastritis, ) and Other
ED Past Surgical History: Gynecological (D&C, endometrial ablation 1997), Orthopedic (Laminectomy 1990, 1993; left knee arthroscopy, Bunion removed) and Other (Partial thyroidectomy right lobe for removal of thyroid nodule)
Patient has exhibited threatening behavior?: No
PSI?: No
Social History
Tobacco: Non-smoker
Alcohol: Occasional
Drug: None
Personal:
Living: with family
Employment: Disabled
Family History
Family History: Other (reviewed and Noncontributory)
Review of Systems
Review of Systems
Allergies reviewed?: Yes
All Other Systems: ROS reviewed and negative except as documented in HPI and ROS
Constitutional: Reports no symptoms
Respiratory: Reports no symptoms
Cardiac: Reports no symptoms
ABD/GI: Reports no symptoms
Musculoskeletal: Reports no symptoms
Skin: Reports no symptoms
Neurological: Reports other (Seizure)
Phy Exam
Physical Exam
Physical Exam:
Physical Exam
General: no apparent distress, not acutely ill. afebrile
Head: nc/at. eomi
Neck: supple. no meningeal signs.
Heart: tachycardic, no murmur. equal radial pulses.
Lungs: no acute respiratory distress. clear bilaterally
Abdomen: normal bowel sounds. not tender.
Neuro: alert and oriented. no focal neurological deficits
Skin: no rash
Psychiatric: well kept. interactive and cooperative
Extremities: no edema. no calf tenderness.
Course
Orders/Labs/Results
Orders:
Orders
12/01/23 21:12
EKG [Electrocardiogram (*1)] Urgent
Reason for Study: Tachycardia
EKG- Treatment ONCE
12/01/23 21:18
CBC/With Diff [Complete Blood Count/With Diff] Urgent
CMP [Comprehensive Metabolic Panel] Urgent
Manual Differential Urgent
12/01/23 21:31
Lorazepam [Ativan] 0.5 mg IV NOW STA
Abnormal Lab Results
12/01/23
21:18
WBC 12.5 H 10^3/uL
(4.8-10.8)
Hct 36.5 L %
(37.0-47.0)
MCV 76.2 L fL
(81.0-99.0)
MCH 25.7 L pg
(27.0-31.0)
Segmented Neutrophils 41 L %
(42-75)
Carbon Dioxide 20 L mmol/L
(22-30)
Glucose 177 H mg/dl
(70-99)
Calcium 10.4 H mg/dl
(8.4-10.2)
Alkaline Phosphatase 171 H U/L
(38-126)
12/01/23 21:18
12/01/23 21:18
Vital Signs
Initial and Last Documented VS:
Initial Vital Signs
Temp Pulse Resp Pulse Ox
97.9 F 78 15 98
12/01/23 21:12 12/01/23 21:12 12/01/23 21:12 12/01/23 21:12
Last Documented Vital Signs
Temp Pulse Resp BP Pulse Ox
98.4 F 67 18 144/82 99
12/02/23 02:01 12/02/23 02:01 12/02/23 02:01 12/01/23 21:14 12/02/23 02:01
MDM/Problems Addressed
MDM/Problems Addressed:
Patient given 0.5 mg Ativan IV upon initial evaluation, with significant improvement symptoms. During extended course of observation afterwards, patient remains alert, awake, and oriented, without any further episodes of seizure-like activities.
As patient has been admitted to [facility] on multiple occasions, with extensive workup, I do not feel that another admission to the hospital will be beneficial. In fact, an evaluation at [facility], already
scheduled in early December, is appropriate. As such, decision made to discharge patient home at this time, with prescription for short course of Ativan, to be used at home as needed. Advised also on Monday to call neurology office to see if if
her appointment can be moved up.
*Critical Care Note
Total Time (30-74mins, 75-104mins- exclusive of procedures): Not Applicable
ED Attending Note
-
Portions of this chart may have been created with voice recognition software.� Occasional wrong word or��sound alike� substitutions may have occurred due to the inherent limitations of voice recognition software.
Discharge Plan
Departure
Patient Disposition: Home (Routine Discharge)
Date of Disposition: 12/02/23
Time of Disposition: 00:20
Patient with high blood pressure during this ER visit?: Yes
Condition: Good
Discharge Problem:
Seizure
Instructions: Seizures, Adult (DC)
Prescriptions:
New
lorazepam [Ativan] 0.5 mg tablet
0.5 mg PO TID PRN (Reason: Seizures) Qty: 14 0RF
No Action
amlodipine 10 MG tablet
10 mg PO DAILY
methimazole 5 MG tablet
5 mg PO SUTUTHSA
gabapentin 600 MG tablet
1,200 mg PO BID
temazepam 30 MG capsule
30 mg PO HSPRN PRN (Reason: sleep)
metoprolol succinate [Toprol XL] 25 mg Tablet Extended Release 24 Hr
25 mg PO DAILY
escitalopram oxalate 20 mg tablet
20 mg PO DAILY
losartan 100 mg tablet
100 mg PO DAILY
rosuvastatin 5 mg Tablet
5 mg PO DAILY
Linzess 145 mcg Capsule
145 mcg PO DAILYPRN PRN (Reason: constipation)
therapeutic multivitamin Tablet
1 tab PO DAILY
Citrucel 500 mg Tablet
500 mg PO BID
cholecalciferol (vitamin D3) [Vitamin D3] 125 mcg (5,000 unit) Tablet
125 mcg PO DAILY
omega 5-ees-rne-fish oil [Fish Oil] 1,200 (144-216) mg Capsule
1 cap PO DAILY
Orencia 125 mg/mL Syringe
125 mg SC BURROWS
Nayzilam 5 mg/spray (0.1 mL) [place],Non-Aerosol
1 spray INTRANASAL DAILYPRN PRN (Reason: seizure)
levetiracetam 750 mg tablet
750 mg PO BID
polyethylene glycol 3350 [HealthyLax] 17 gram Powder In Packet
17 g PO DAILYPRN PRN (Reason: constipation) Qty: 30 0RF
Referrals:
Pita Ordonez MD [Family Provider] -
Activity Restrictions/Additional Instructions:
As discussed, please follow-up with neurologist at [facility], as soon as possible for reevaluation. Your prescription has been sent electronically to [facility] pharmacy in [place].
Interventions
Interventions:
*Risk Screen - Suicide Last Done: 12/01/23 21:12
*General Assessment Last Done: 12/01/23 21:12
*Neglect/Abuse Screening Last Done: 12/01/23 21:12
ED- Fall Risk Assessment Last Done: 12/01/23 21:48
*ED COVID-19 Vaccine History Last Done: 12/01/23 21:12
*Nursing Disposition Last Done: 12/02/23 02:01
ED- Cardiac Assessment Last Done: 12/01/23 21:48
ED- Neurological Assessment Last Done: 12/01/23 21:48
ED- Pulmonary Assessment Last Done: 12/01/23 21:48
Discharge Date and Time
Discharge Date/Time: 12/02/23 01:00
Print Language: PASHTO
[2023-12-01 21:46] LABS: Atypical Lymphocytes 10 %; Hematocrit 36.5 % (37.0-47.0); Hemoglobin 12.3 g/dL (12.0-16.0); Lymphocytes 44 % (20-51); Mean Corp Hgb Conc. 33.7 g/dL (33.0-37.0); Mean Corpuscular Hgb 25.7 pg (27.0-31.0); Mean Corpuscular Volume 76.2 fL (81.0-99.0); Mean Platelet Volume 9.5 fL (7.4-10.4); Monocytes 5 % (2-9); Platelet Count 290 10^3/uL (130-400); Red Blood Cell Count 4.79 10^6/uL (4.20-5.40); Red Cell Dist. Width 13.4 % (11.5-14.5); Segmented Neutrophils 41 % (42-75); White Blood Cell Count 12.5 10^3/uL (4.8-10.8)
[2023-12-01 21:47] LABS: Platelets Checked Yes
[2023-12-01 21:48] LABS: Anisocytosis Slight; Normal RBC Morphology No; Ovalocytes 1+
[2023-12-01 21:49] LABS: Total Cells Counted 100
[2023-12-01 21:56] LABS: ALT (SGPT) 27 U/L (0-35); AST (SGOT) 30 U/L (14-36); Albumin 4.8 g/dl (3.5-5.0); Alkaline Phosphatase 171 U/L (38-126); Blood Urea Nitrogen 16 mg/dl (7-17); Calcium 10.4 mg/dl (8.4-10.2); Chloride 106 mmol/L (98-107); Glucose 177 mg/dl (70-99); Sodium 142 mmol/L (135-145)
[2023-12-01 22:04] LABS: Carbon Dioxide 20 mmol/L (22-30); Estimated Creatinine Clearance 56 ml/min; Total Bilirubin 0.2 mg/dl (0.2-1.3); Total Protein 6.8 g/dl (6.3-8.2); eGFR > 60.00
== END 2023-12-02 01:00 | disposition home or self-care (01) ==
LOC: EMR 21:08
PROVIDERS: EMERGENCY PHYSICIAN Emergency Medicine; FAMILY PHYSICIAN Internal Medicine
DX: G40.909 Epilepsy, unspecified, not intractable, without status epilepticus (principal); R00.2 Palpitations; R20.0 Anesthesia of skin; I10 Essential (primary) hypertension; E78.00 Pure hypercholesterolemia, unspecified; F32.A Depression, unspecified; G35 Multiple sclerosis; G50.0 Trigeminal neuralgia; G43.909 Migraine, unspecified, not intractable, without status migrainosus; K52.9 Noninfective gastroenteritis and colitis, unspecified; M19.90 Unspecified osteoarthritis, unspecified site; K44.9 Diaphragmatic hernia without obstruction or gangrene; G89.29 Other chronic pain; Z79.899 Other long term (current) drug therapy; Z88.6 Allergy status to analgesic agent; Z88.5 Allergy status to narcotic agent; Z88.8 Allergy status to other drugs, medicaments and biological substances; Z91.048 Other nonmedicinal substance allergy status
CPT/HCPCS: 99284; 96374; 80053; 85025; 93005

== ENCOUNTER 2023-12-06 18:57 | Emergency (ER) | payer OTHER, SELFPAY ==
[2023-12-06 18:58] VITALS: BP 176/107
[2023-12-06 19:22] VITALS: BMI 20.8
[2023-12-06 19:23] VITALS: BP 163/94
[2023-12-06 20:00] VITALS: BP 162/77
--- NOTE | 2023-12-06 20:14 | ED.GENMED ---
History of Present Illness
General
Chief Complaint: Breathing Problem
Source: patient and spouse
Time Seen by Provider: 12/06/23 19:52
History of Present Illness
History of Present Illness:
73-year-old female presents emergency department with complaints of elevated heart rate and blood pressure associated with a headache. Patient has been experiencing the symptoms at least for a week or so, states she was here about 5 days ago with
similar symptoms and was prescribed Ativan 0.5 mg 3 times daily as needed. She was given follow-up with [facility] which she has on Monday. She has been in touch with her [facility] neurology and was advised that breast given her symptoms, advised to go to
the emergency department if her blood pressure or heart rate was too be persistently elevated which they noted prior to presentation here. Patient denies palpitations. She notes sometimes she feels like her chest 'tightens up and she cannot get
enough air in', this comes and goes, without specific provoking or relieving factors and does not appear to be related to her elevated heart rate as noted when they monitor it. She notes polyuria but denies polydipsia, dysuria, urgency, frequency.
She has intermittent tingling in her legs when she stands up which is not unusual for her. Patient has a history of MS and RA and describes chronic symptoms including dizziness, vertigo, intermittent diplopia, etc. Patient has been diagnosed with
a seizure disorder which she describes as legs start to tingle and is tingling migrates cefazolin and then she starts to feel like she is falling into an of this all while she is aware that is happening. Patient has not had a seizure today. She is
eating and drinking as usual today. Patient denies new numbness or tingling, new weakness, or other complaints.
Past History
Past History
ED Past Medical History: HTN, Hypercholesterolemia, Seizures, Psychiatric (Depression), Other (Multiple sclerosis, chronic right neck pain/trigeminal neuralgia, migraine headaches, chronic burping, RA, osteopenia, duodenitis, mesenteric vasculitis),
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 Gastritis, ) and Other
ED Past Surgical History: Gynecological (D&C, endometrial ablation 1997), Orthopedic (Laminectomy 1990, 1993; left knee arthroscopy, Bunion removed) and Other (Partial thyroidectomy right lobe for removal of thyroid nodule)
Patient has exhibited threatening behavior?: No
PSI?: No
Social History
Tobacco: Non-smoker
Alcohol: Occasional
Drug: None
Personal:
Living: with family
Employment: Disabled
Family History
Family History: Other (reviewed and Noncontributory)
Phy Exam
Physical Exam
Physical Exam:
GENERAL: Awake but eyes closed, opens when asked, speaks in a low voice, in no apparent distress
EYE: pupils equal and reactive, EOMI, no nystagmus
NECK: Supple, no significant adenopathy.
ENT: o/p clr, mm slightly dry
CARDIAC: Regular rate and rhythm, not tachycardic at this time.
LUNGS: Clear breath sounds bilaterally, no acute respiratory distress, no wheezes/rales/rhonchi
ABDOMEN: Soft, without focal tenderness, no r/g, no cvat
NEUROLOGICAL: Awake and oriented, no new focal neuro deficits (chronic R leg weakness as per pt and ), no facial droop, speech clear, f to n nl
SKIN: Warm and dry, skin intact.
MUSCULOSKELETAL: No edema, well perfused.
PSYCH: Normal and appropriate interaction.
Course
Orders/Labs/Results
Orders:
Orders
12/06/23 18:57
ECG [Electrocardiogram (*1)] Urgent
Reason for Study: Tachycardia
EKG- Treatment ONCE
12/06/23 20:10
Cardiac Monitoring- Treatment ONCE
Complete Blood Count/No Diff Urgent
Comprehensive Metabolic Panel Urgent
0.9% Sodium Chloride 1000 ml [Nss] 1,000 ml IV BOLUS
Diphenhydramine [Benadryl] 25 mg IV NOW STA
12/06/23 20:11
TSH Urgent
12/06/23 20:14
Metoclopramide [Reglan] 5 mg IV NOW STA
Vital Signs
Initial and Last Documented VS:
Initial Vital Signs
Temp Pulse Resp BP Pulse Ox
98.7 F 147 18 176/107 100
12/06/23 18:58 12/06/23 18:58 12/06/23 18:58 12/06/23 18:58 12/06/23 18:58
Last Documented Vital Signs
Temp Pulse Resp BP Pulse Ox
98.7 F 109 9 162/77 98
12/06/23 18:58 12/06/23 20:00 12/06/23 20:00 12/06/23 20:00 12/06/23 20:00
Update Note
Update Note:
Patient presents to the Emergency Department with eleveated hr and bp___
Number and Complexity of Problems Addressed at the Encounter
� Chronic conditions affecting care:
� Acute Exacerbation and/or Progression of Chronic Illness:
� Differential Diagnosis includes:hyperthyrodism, MS related dysautonomia, dehydration, etc., sepsis
Amount and/or Complexity of Data to be Reviewed and Analyzed
� I performed an independent evaluation of and my interpretation is:
EKG:
CT:
Xrays:
Laboratory Studies:
Other:
� Review of other/old records reveals:
� Clinical information was obtained by an independent historian: at bedside
� Prescriptions/Medications Considered but not given:
� Further testing considered but not performed:
Risk of Complications and/or Morbidity or Mortality of Patient Management
� Social determinants of health affecting care:
� Discussion with other providers (PCP, Hospitalists, Consultants, etc):
� Escalation of care including admission/observation vs risk of discharge considered:
� Prescriptions/Medications Considered but not given:
� Further testing considered but not performed:
Risk of Complications and/or Morbidity or Mortality of Patient Management
� Social determinants of health affecting care:
� Discussion with other providers (PCP, Hospitalists, Consultants, etc):
� Escalation of care including admission/observation vs risk of discharge considered:
Elevated heart rate and blood pressure
ED Attending Note
-
Portions of this chart may have been created with voice recognition software.� Occasional wrong word or��sound alike� substitutions may have occurred due to the inherent limitations of voice recognition software.
Discharge Plan
Departure
Prescriptions:
No Action
amlodipine 10 MG tablet
10 mg PO DAILY
methimazole 5 MG tablet
5 mg PO SUTUTHSA
gabapentin 600 MG tablet
1,200 mg PO BID
temazepam 30 MG capsule
30 mg PO HSPRN PRN (Reason: sleep)
metoprolol succinate [Toprol XL] 25 mg Tablet Extended Release 24 Hr
25 mg PO DAILY
escitalopram oxalate 20 mg tablet
20 mg PO DAILY
losartan 100 mg tablet
100 mg PO DAILY
rosuvastatin 5 mg Tablet
5 mg PO DAILY
Linzess 145 mcg Capsule
145 mcg PO DAILYPRN PRN (Reason: constipation)
therapeutic multivitamin Tablet
1 tab PO DAILY
Citrucel 500 mg Tablet
500 mg PO BID
cholecalciferol (vitamin D3) [Vitamin D3] 125 mcg (5,000 unit) Tablet
125 mcg PO DAILY
omega [id number]-lzl-fish oil [Fish Oil] 1,200 (144-216) mg Capsule
1 cap PO DAILY
Orencia 125 mg/mL Syringe
125 mg SC BURROWS
Nayzilam 5 mg/spray (0.1 mL) Dwight,Non-Aerosol
1 spray INTRANASAL DAILYPRN PRN (Reason: seizure)
levetiracetam 750 mg tablet
750 mg PO BID
polyethylene glycol 3350 [HealthyLax] 17 gram Powder In Packet
17 g PO DAILYPRN PRN (Reason: constipation) Qty: 30 0RF
lorazepam [Ativan] 0.5 mg tablet
0.5 mg PO TID PRN (Reason: Seizures) Qty: 14 0RF
Referrals:
Pita Ordonez MD [Family Provider] -
Interventions
Interventions:
*Risk Screen - Suicide Last Done: 12/06/23 19:22
*General Assessment Last Done: 12/06/23 19:22
*Neglect/Abuse Screening Last Done: 12/06/23 19:22
ED- Fall Risk Assessment Last Done: 12/06/23 19:22
*ED COVID-19 Vaccine History Last Done: 12/06/23 19:22
ED- Cardiac Assessment Last Done: 12/06/23 19:22
ED- Pulmonary Assessment Last Done: 12/06/23 19:22
Discharge Date and Time
Print Language: ROMANIAN
[2023-12-06] MEDS: NSS 1000 IV (20:17)
[2023-12-06] MEDS: BENADRYL 25 MG IV (20:20)
[2023-12-06] MEDS: REGLAN 5 MG IV (20:20)
[2023-12-06 20:27] LABS: Hematocrit 40.2 % (37.0-47.0); Hemoglobin 13.4 g/dL (12.0-16.0); Mean Corp Hgb Conc. 33.3 g/dL (33.0-37.0); Mean Corpuscular Hgb 25.2 pg (27.0-31.0); Mean Corpuscular Volume 75.7 fL (81.0-99.0); Mean Platelet Volume 9.1 fL (7.4-10.4); Platelet Count 303 10^3/uL (130-400); Red Blood Cell Count 5.31 10^6/uL (4.20-5.40); Red Cell Dist. Width 13.3 % (11.5-14.5); White Blood Cell Count 10.4 10^3/uL (4.8-10.8)
[2023-12-06 20:53] LABS: ALT (SGPT) 33 U/L (0-35); AST (SGOT) 34 U/L (14-36); Albumin 5.1 g/dl (3.5-5.0); Alkaline Phosphatase 178 U/L (38-126); Blood Urea Nitrogen 17 mg/dl (7-17); Calcium 10.7 mg/dl (8.4-10.2); Carbon Dioxide 21 mmol/L (22-30); Chloride 103 mmol/L (98-107); Estimated Creatinine Clearance 56 ml/min; Glucose 157 mg/dl (70-99); Potassium 4.4 mmol/L (3.5-5.1); Sodium 141 mmol/L (135-145); Total Bilirubin 0.3 mg/dl (0.2-1.3); Total Protein 7.4 g/dl (6.3-8.2); eGFR > 60.00
[2023-12-06 21:00] VITALS: BP 135/61
[2023-12-06 21:22] LABS: Erythrocyte Sed Rate 11 mm/hour (0-20)
[2023-12-06 21:34] LABS: TSH 2.27 uIU/ml (0.47-4.68)
[2023-12-06 22:00] VITALS: BP 112/61
[2023-12-06 22:37] LABS: Urine Albumin Negative (Neg - Trace); Urine Bilirubin Negative (Negative); Urine Character Clear (Clear); Urine Color Yellow; Urine Glucose Negative (Negative); Urine Ketone Trace (Negative); Urine Leukocyte Negative (Negative); Urine Nitrite Negative (Negative); Urine Occult Blood Negative (Negative); Urine Urobilinogen Negative (Neg - 1+)
[2023-12-06 23:00] VITALS: BP 126/60
[2023-12-07] VITALS: BP 143/70
== END 2023-12-07 00:30 | disposition home or self-care (01) ==
LOC: EMR 18:57
PROVIDERS: EMERGENCY PHYSICIAN Emergency Medicine; FAMILY PHYSICIAN Internal Medicine
DX: R51.9 Headache, unspecified (principal); R00.0 Tachycardia, unspecified; I10 Essential (primary) hypertension; E78.00 Pure hypercholesterolemia, unspecified; G35 Multiple sclerosis; Z87.19 Personal history of other diseases of the digestive system
CPT/HCPCS: 96374; 96375; 96361; 99284; 80053; 81003; 84443; 85027; 85652; 93005

== ENCOUNTER → 2024-01-16 10:11 | Outpatient (REF) | payer OTHER, SELFPAY | LOC: WDC 10:11 | PROVIDERS: ATTENDING PHYSICIAN Hospitalist | DX: N63.20 Unspecified lump in the left breast, unspecified quadrant (principal); Z12.31 Encounter for screening mammogram for malignant neoplasm of breast; N63.22 Unspecified lump in the left breast, upper inner quadrant | CPT/HCPCS: 76642; 77062; 77066 ==

== ENCOUNTER → 2024-05-15 10:19 | Outpatient (REF) | payer OTHER, SELFPAY | LOC: RAD 10:19 | PROVIDERS: ATTENDING PHYSICIAN Internal Medicine; FAMILY PHYSICIAN Internal Medicine | DX: R19.4 Change in bowel habit (principal) | CPT/HCPCS: 74019 ==

== ENCOUNTER 2024-05-30 06:22 | Day surgery (SDC) | payer OTHER, SELFPAY | END 2024-05-30 15:04 | disposition home or self-care (01) | LOC: GI 06:22 | PROVIDERS: ATTENDING PHYSICIAN Internal Medicine | DX: K52.9 Noninfective gastroenteritis and colitis, unspecified (principal); K57.30 Diverticulosis of large intestine without perforation or abscess without bleeding; R10.13 Epigastric pain; K44.9 Diaphragmatic hernia without obstruction or gangrene; D12.2 Benign neoplasm of ascending colon; K29.50 Unspecified chronic gastritis without bleeding; K63.89 Other specified diseases of intestine | CPT/HCPCS: 45385; 43239; 88305; 88342 ==

== ENCOUNTER → 2024-07-02 10:42 | Outpatient (REF) | payer OTHER, SELFPAY | LOC: HWRAD 10:42 | PROVIDERS: ATTENDING PHYSICIAN Internal Medicine Rheumatology; FAMILY PHYSICIAN Hospitalist | DX: Z13.820 Encounter for screening for osteoporosis (principal) | CPT/HCPCS: 77080 ==

== ENCOUNTER → 2024-09-27 15:03 | Outpatient (REF) | payer OTHER, SELFPAY | LOC: HWRAD 15:03 | PROVIDERS: ATTENDING PHYSICIAN Hospitalist; REFERRING PHYSICIAN Internal Medicine Endocrinology, Diabetes & Metabolism | DX: E04.2 Nontoxic multinodular goiter (principal) | CPT/HCPCS: 76536 ==

== ENCOUNTER 2024-09-30 06:28 | Day surgery (SDC) | payer OTHER, SELFPAY | END 2024-09-30 14:08 | disposition home or self-care (01) | LOC: GI 06:28 | PROVIDERS: ATTENDING PHYSICIAN Internal Medicine | DX: R13.10 Dysphagia, unspecified (principal); K22.2 Esophageal obstruction; K44.9 Diaphragmatic hernia without obstruction or gangrene; K31.89 Other diseases of stomach and duodenum; K31.A0 Gastric intestinal metaplasia, unspecified; K29.50 Unspecified chronic gastritis without bleeding; K20.90 Esophagitis, unspecified without bleeding | CPT/HCPCS: 43249; 43239; 88305; 88342 ==

== ENCOUNTER → 2025-01-16 16:58 | Outpatient (REF) | payer OTHER, SELFPAY | LOC: WDC 16:58 | PROVIDERS: ATTENDING PHYSICIAN Hospitalist | DX: Z12.31 Encounter for screening mammogram for malignant neoplasm of breast (principal) | CPT/HCPCS: 77063; 77067 ==